=== PATIENT | male | born 1965 | race Caucasian/White ===

== ENCOUNTER → 2021-02-16 10:17 | Outpatient (CLI) | payer OTHER, SELFPAY ==
--- NOTE | 2021-02-16 10:20 | CT_ITS ---
INDICATION: New Lung Mass EXAMINATION: CT CHEST WITHOUT CONTRAST - CT Chest W/O Contrast Injection TECHNIQUE: Helically acquired images were obtained of the chest. A radiation dose optimization technique was used for this scan. IV Contrast dosage and agent: None. COMPARISON: Chest radiograph from 01/15/2021 FINDINGS: Please note that evaluation is limited without IV contrast. Lungs/pleura: There is an 11 x 8.3 x 12.1 cm mass in the left upper lobe (series 2:38) with the following characteristics: * Abuts and invades the left mediastinum. * Involves the adjacent pleura without definite osseous involvement or extension into the chest wall. * Encases and/or invades the left mainstem pulmonary artery and left upper lobe segmental and subsegmental pulmonary vasculature, although the caliber and degree of involvement cannot be assessed on noncontrast study. * Causes complete collapse of the left upper lobe segmental and subsegmental bronchi with associated left upper lobe volume loss and atelectasis. There are a few additional pulmonary nodules in the remaining lungs. For example: * 0.6 cm in the right upper lobe * 0.5 cm in the right lower lobe * 0.5 cm and the left lower lobe. Small left pleural effusion. No pneumothorax. Left lower lobe subsegmental atelectasis. Mediastinum: Invasion of the mediastinum by the mass with multifocal areas of soft tissue thickening/nodules/enlarged lymph nodes. For example index lesions as follow: * 2.5 cm left paratracheal nodule/mass * 2.8 x 1.7 cm left upper mediastinal mass/nodule Soft tissue stranding/nodules contact the pericardium. No pericardial effusion. Heart size is normal. Vasculature: Aorta is normal caliber. The degree of involvement of the left pulmonary artery is difficult to assess without IV contrast. Upper abdomen: Cholelithiasis. Otherwise, no significant findings. Bones/soft tissues: No destructive osseous lesions. No acute findings. CT/Chest without Contrast IMPRESSION: 1. Left lung malignancy with involvement of the mediastinum and adjacent structures as detailed. 2. Encasement with possibility of invasion of the left mainstem pulmonary artery and left upper lobe pulmonary vasculature although degree of involvement cannot be assessed on noncontrast study. 3. Mass effect resulting in collapse of the left upper lobe segmental and subsegmental pulmonary vasculature. 4. A few additional pulmonary nodules measuring up to 0.6 cm. 5. Small left pleural effusion. Electronically Signed: Suleiman Acevedo MD at 12:21 EST Tel , Service support ,
[2021-02-16 13:18] LABS: Absolute Lymphocyte Count 1.81 X10^3/uL (0.83-4.51); Absolute Neutrophil Count 30.2 X10^3/uL (2.0-7.7); Basophil# 0.14 X10^3/uL; Basophil% 0.4 % (0-1); Eosinophils% 6.7 % (0-5); Hemoglobin 10.6 g/dL (13.0-16.5); Lymphocyte # 1.81 X10^3/ul (0.83-4.51); Lymphocyte % 4.9 % (19-41); Mean Corp Hgb Conc 32.1 g/dL (32-36); Mean Corpuscular Hgb 26.6 pg (27.0-32.0); Mean Corpuscular Volume 82.7 fL (80-94); Mean Platelet Vol. 8.5 fl (6.2-12.0); Monocyte% 5.4 % (0-10); NRBC Flagged by Analyzer 0 % (0-5); Neutrophil # 30.17 X10^3/uL (2.7-7.7); Neutrophil % 81.6 % (47-70); POSITIVE COUNT YES; POSITIVE DIFFERENTIAL YES; Platelet Count 557 K/mm3 (150-450); RBC Distribution Width CV 13.4 % (11.6-14.6); RBC Distribution Width SD 40.6 fl (35.1-43.9); Red Blood Count 3.99 M/mm3 (4.6-6.2)
[2021-02-16 13:20] LABS: Eosinophil# 2.49 X10^3/uL
[2021-02-16 13:24] LABS: Differential Indicated SCAN CRITERIA MET
[2021-02-16 13:37] LABS: International Normalized Ratio 1.2
[2021-02-16 13:38] LABS: Partial Thromboplast Time 34.8 Seconds (24.1-36.2)
[2021-02-16 13:43] LABS: Hypochromasia RARE; Platelet Estimate MOD INC (ADEQ)
[2021-02-18 15:21] LABS: Pathologist Review Reviewed
== END ==
PROVIDERS: PCP Family Medicine; Referring Provider Internal Medicine Critical Care Medicine; Visit Provider Internal Medicine Critical Care Medicine
DX: R91.8 Other nonspecific abnormal finding of lung field (principal)
CPT/HCPCS: 36415; 71250; 85025; 85610; 85730

== ENCOUNTER → 2021-02-18 06:55 | Outpatient (CLI) | payer OTHER, SELFPAY ==
--- NOTE | 2021-02-18 09:02 | PFT ---
INTRODUCTION: The patient is a 55-year-old male that presents for pulmonary function studies secondary to a diagnosis of lung mass. Respiratory therapy reported good patient effort. Bronchodilators were used during testing. INTERPRETATION: Forced expiration spirometry demonstrates the presence of a moderate large airways obstructive ventilatory defect. There was no significant response to aerosolized bronchodilators. Spirograms are of good quality and plateau normally. Body plethysmography was performed and reveals lung volumes to be within normal limits. Diffusing capacity by single breath CO was mildly reduced. IMPRESSION: Irreversible moderate large airways obstructive ventilatory defect with preserved lung volumes and mild reduction in diffusing capacity.
== END ==
PROVIDERS: PCP Family Medicine; Referring Provider Internal Medicine Critical Care Medicine; Visit Provider Internal Medicine Critical Care Medicine
DX: R91.8 Other nonspecific abnormal finding of lung field (principal)
CPT/HCPCS: 94060; 94726; 94729

== ENCOUNTER 2021-02-21 13:01 | Day surgery (SDC) | payer OTHER, SELFPAY ==
--- NOTE | 2021-02-21 | LUNG_PTH ---
PATIENT: MARIKA SCALES LOC: EN U#:[id number] AGE/SX: 55/M ROOM: RE02/21/[address]: Dr. Alonso Felder MD : 1965 BED: DIS: 02/21/2021 SPEC #: [id number] RECD: 02/21/21 14:58 STATUS: MCKAYLA SCHMIDT #: [id number] MORIS: 02/21/21 00:[address]: Alonso Felder DEPT: SURGICAL PATHOLOGY RECD BY: Jaci Henson ENTERED: 02/22/21 09:58 SP TYPE: LUNG BX OTHR DR: Dr. Saulo Cooney MD Tissues: Lung, NOS Procedures: Surgery Specimen Level IV HEADER OPERATION: Bronchoscopy (MAC) PRE-OP DIAGNOSIS: Mass of left lung; post-obstructive pneumonia TISSUE SUBMITTED: Endobronchial biopsy lingula MICROSCOPIC DIAGNOSIS Lingula, endobronchial biopsy: Non-small cell carcinoma, favor adenocarcinoma, consistent with lung primary. See comment. SJ:dat 02/23/2021 COMMENT Immunohistochemistry ([id number]) supports the above diagnosis. Molecular studies on the tumor can be performed if clinically indicated. Please notify the laboratory if they are needed. This case is discussed with Dr. Howard on 02/23/2021 MICROSCOPIC DESCRIPTION Slides are reviewed. GROSS DESCRIPTION Received in fixative is one container labeled with the patient's name and designated endobronchial biopsy lingula. The specimen consists of multiple irregular fragments of light burton soft tissue that in aggregate measure 2.5 x 0.5 x 0.1 cm. The specimen is totally submitted in one cassette. / MERISSA:dat 02/22/2021 TC:0 CPT: 36611 ADDENDUM ADDENDUM ADDENDUM ADDENDUM ADDENDUM ADDENDUM 03/23/2021 09:41 ADDENDUM 03/23/2021 09:41 ADDENDUM 03/23/2021 09:41 ADDENDUM 03/23/2021 09:41 ADDENDUM 03/29/2021 10:06 ADDENDUM 03/23/2021 09:41 PD-L1 (KEYTRUDA) IMMUNOHISTOCHEMICAL ANALYSIS FROM [facility] RESULTS: Tumor proportion score: 15-20% / Positive Please see complete report in e-chart or E[facility] GENE FUSION PAN[facility] FROM [facility] INTERPRETATION: POSITIVE: CCDC6-RET gene fusion is DETECTED. No pathogenic gene fusions detected involving ALK, MIKAEL, BRAF, CCND1, EGFR, FGFR1, FGFR2, FGFR3, MET, NRG1, NTRK1, NTRK2, NTRK3, PPARG, RAF1, ROS1 or THADA. The presence of RET rearrangement is associated with responsiveness to oral RET TKIs (NCCN Guidelines, Small Cell Lung Cancer, Version 2.2021; NCCN Guidelines, Non-Small Cell Lung Cancer, Version 2.202) RESULTS: 3'GENE FUSION TRANSCRIPT 5'GENE FUSION TRANSCRIPT CCDC6;exon:1;[id number] RET;exon:12;[id number] Please see complete report in e-chart or EMR
--- NOTE | 2021-02-21 | FLU_PTH ---
PATIENT: MARIKA SCALES LOC: EN U#:[id number] AGE/SX: 55/M ROOM: RE02/21/[address]: Dr. Alonso Felder MD : 1965 BED: DIS: 02/21/2021 SPEC #: [id number] RECD: 02/21/21 14:58 STATUS: MCKAYLA SCHMIDT #: [id number] MORIS: 02/21/21 00:[address]: Alonso Felder DEPT: CYTOLOGY RECD BY: Jaci Henson ENTERED: 02/22/21 10:00 SP TYPE: Fluid OTHR DR: Dr. Saulo Cooney MD Tissues: A - Bronchus, NOS B - Bronchus, NOS Procedures: Special Stain Group II Surgery Specimen Level IV Cytospin Fluid HEADER OPERATION: Bronchoscopy (MAC) PRE-OP DIAGNOSIS: Mass of left lung; post-obstructive pneumonia TISSUE SUBMITTED: A ? Washings lingula, B ? Washings lingula DIAGNOSIS CYTOLOGY A. Lingula, washings (cytospin and cell block): Negative for malignant cells. Bloody specimen. B. Lingula, washings (cytospin and cell block): Negative for malignant cells. Bloody specimen. MERISSA:dat 02/23/2021 COMMENT Please make reference to corresponding surgical specimen ([id number]), lingula, endobronchial biopsy with diagnosis of ?non-small cell carcinoma, favor adenocarcinoma, consistent with lung primary.? CYTOLOGY STUDY Slides are reviewed. CYTOLOGY GROSS A - Received is 40 ml of red cloudy fluid labeled with the patient's name and and designated per the requisition as lingula wash. Submitted for cytology preparation including cell block. B - Received is 30 ml of red cloudy fluid labeled with the patient's name and and designated per the requisition as lingula wash. Submitted for cytology preparation including cell block. / dat 02/22/2021 TC:5 CPT: 82756 x2, 09688 x2 ADDENDUM ADDENDUM ADDENDUM ADDENDUM ADDENDUM ADDENDUM ADDENDUM 02/28/2021 15:05 ADDENDUM 02/28/2021 15:05 ADDENDUM 02/28/2021 15:05 ADDENDUM 02/28/2021 15:05 ADDENDUM 02/28/2021 15:05 B. Rare atypical epithelial cells noted. SJ:dat 02/28/2021 Case has been reviewed in consultation with Dr. Fish who concurs with the above diagnosis. IDC:AM
--- NOTE | 2021-02-21 | IMM_PTH ---
PATIENT: MARIKA SCALES LOC: EN U#:[id number] AGE/SX: 55/M ROOM: RE02/21/[address]: Dr. Alonso Felder MD : 1965 BED: DIS: 02/21/2021 SPEC #: [id number] RECD: 02/23/21 13:38 STATUS: MCKAYLA REQ #: [id number] MORIS: 02/21/21 00:[address]: Alonso Felder DEPT: IMMUNOHISTOCHEMISTRY RECD BY: Beena Ashton ENTERED: 02/23/21 13:40 SP TYPE: IMMUNO OTHR DR: Dr. Saulo Cooney MD Tissues: Lingula of left lung Procedures: RCC (add) NAPSIN A (add) CK20 (add) CK5-6 (add) CK7 (add) CK8 (add) HEP PAR (add) TTF1 (add) Pankeratin (initial) P40 (add) PSAP (add) PHYSICIAN & [address] [address] SPECIMEN INFORMATION: Tissue Source: Lingula, endobronchial biopsy Clinical Info: Mass of left lung, post-obstructive pneumonia Specimen Number: [id number] CPT code: 20662, 63112 x10 METHODOLOGY: Deparaffinized sections of prefer/formalin-fixed tissue or PAP/DQ stained slides are incubated with monoclonal/polyclonal antibodies/oligonucleotide probes. Localization is made via biotin free immunoperoxidase method. Appropriate controls are performed and reacted as expected. Results on target cell population are indicated in the following table: RESULTS: ANTIBODY / CLONE RESULT AE1-3 (AE1/AE3/PCK26) positive CK7 (OV-TL12/30) positive CK8 (14thmsV68) positive CK20 (KS20.8) negative TTF-1 (8G7G3/1) positive Napsin A (Rabbit Polyclonal) positive HepPar (OCh1E5) negative RCC (PN-15) negative PSAP (PASE/4LJ) negative CK5-6 (D5 & 1684) negative P40 (BC28) negative These tests were developed and their performance characteristics determined by [facility]. They may not have been cleared or approved by the U.S. Food and Drug Administration. The FDA has determined that such clearance or approval is not necessary. The above immunohistochemical/dualISH markers are ordered and reviewed by the Pathologist. INTERPRETATION: Lingula, endobronchial biopsy: Non-small cell carcinoma, favor adenocarcinoma, consistent with lung primary. :dat 02/24/2021
[2021-02-21 13:28] VITALS: BP 146/71; PULSE 123; RESP 16; TEMP 37.8; O2SAT 92; BMI 25.7
--- NOTE | 2021-02-21 13:44 | HP.PCM_ITS ---
History and Physical Date of Admission: 02/21/21 Patient seen and examined independently prior to the procedure. There is been no significant change compared to visit listed below. All questions were answered. Patient does have a slight fever today, but this would not preclude proceeding with the procedure. Anticipate endobronchial biopsies with micro evaluation for possible postobstructive pneumonia. Patient understands that hemoptysis and fever would be expected over the next 24 to 48 hours. Reasons for coming back to the hospital were also reviewed. Anticipate discharge home after the procedure. Assessment and Plan Assessment and Plan (1) Mass of left lung: Status: Acute (2) Postobstructive pneumonia: Status: Acute Orders: Orders: Chest without Contrast Today R91.8 Partial Thromboplast Time Today R91.8 Prothrombin Time w/INR Today R91.8 CBC W/Diff, Automated Today R91.8 Pulmonary Function Test (Comp) Today R91.8 Bronchoscopy 02/21/21 R91.8 Plan - Dr. Alonso Felder MD: Patient is currently on antibiotics and tolerating well. Differential diagnosis would include aspiration, infectious or malignant etiology. 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 Work-up is complicated by lack of primary care. After review of the risks, benefits and alternatives of various approaches including EBUS, CT-guided biopsy and regular bronchoscopy, patient has elected to have a routine bronchoscopy. Patient is not willing to wait any longer then he has to for an EBUS procedure. Patient understands that this will limit the ability to stage, but is interested in finding answers as soon as possible. Will obtain a complete pulmonary function test for quantification and qualification of lung function. Cannot exclude metastatic disease given lack of colonoscopy and prostate exam. Patient's bronchoscopy has been tentatively scheduled for March 23, 2021 at 2 PM. Obtain labs and complete PFT. Bronchoscopy next week. Continue antibiotics. Plan Details Follow Up: Following bronchoscopy HPI Lung Mass Chief Complaint: Lung mass Details: Patient is a 55-year-old male, currently without a PCP, who presents for evaluation secondary to a lung mass. Patient states he has not felt well in the past 6 to 8 weeks. Patient states that he went to the urgent care 3 weeks ago and was placed on antibiotics for a sinus infection and possible pneumonia. Patient believes this was amoxicillin. Patient did improve while on antibiotics, but then continued to worsen. Patient went to the urgent care yesterday with similar type of complaints. Patient had a chest x-ray showing a significant lung mass. This led to a pulmonary consult. An urgent CT scan was done prior to this visit. Patient has been subsequently placed on Augmentin. On further questioning, patient reports he has had a cough for at least 6 to 8 weeks. The last 2 to 3 days patient has noted some mild hemoptysis and describes his sputum as brown with blood streaks. Patient feels more chest tightness with lying flat. Patient has noted decreased exercise tolerance compared to previous. Patient is not reporting any obvious chest pain or trauma at this time. 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 Patient believes his last chest imaging was in 2004. Patient is not aware of any aspiration event Patient reports only 2 years of smoking history. Patient does state that he does not follow routinely with a PCP. Patient is supposedly to be evaluated by Dr. Cooney next week as a new patient. Patient has not had a colonoscopy or a prostate examination. Patient has had some mild weight loss. Patient is not reporting any significant lower extremity edema. Imaging personally reviewed with the patient Chest x-ray (02/15/2021): 9.5 x 9.9 cm left upper lobe mass with elevation of left hemidiaphragm CT chest (02/16/2021): Formal interpretation is currently pending. This is suggestive of an endobronchial mass in the left upper lobe with possible postobstructive pneumonia versus atelectasis. There is some left hilar adenopathy appreciated. Intake Vital Signs 02/16/21 12:14 Height 6 ft Weight: 89.358 kg BMI 26.7 BP 122/72 H Blood Pressure Location Lt brachial Position Sitting Respiration 18 Pulse 110 H Pulse Source Monitor Temp 37.3 C H Temperature Source Tympanic Pulse Oximetry (%) 92 Oxygen Delivery Method room air Intake Visit Reasons: Lung Mass Allergies No Known Allergies Allergy (Unverified 02/16/21 13:35) Medications benzonatate 100 mg capsule 100 mg PO Q8H PRN #30 cap 02/15/21 [Rx Confirmed 02/16/21] PFSH Medical History (Updated 02/16/21 @ 16:[address] Alonso Felder MD) Alcohol use Chest pain Former smoker Injury of head and neck Lab test negative for COVID-19 virus Non-smoker Shortness of breath on exertion Family History (Updated 02/16/21 @ 12:16 by Kandi Joya) Mother Diabetes Social History (Updated 02/16/21 @ 12:16 by Kandi Joya) Smoking Status: Former smoker quit date: 03/26/79 pack-years: 2 Review of Systems Resp Respiratory: Yes as per HPI Exam Const Constitutional: Positive conversant, cooperative, in no acute respiratory distress, healthy appearing, well developed, well nourished and good hygiene Head Head: Yes normocephalic, Yes atraumatic and No cyanosis of lips/distal nose Eyes Eye: Positive clear conjunctiva; Negative nystagmus, scleral abnormality or cataract present Ears Ear: Positive hearing normal and external ears normal; Negative hard of hearing Neck Neck: Positive normal visual inspection, full ROM and trachea midline; Negative lymphadenopathy or JVD Chest Wall Chest: Positive normal inspection of the chest and symmetric chest movement; Negative crepitus or tenderness Resp lung sounds: Positive clear to auscultation, good air exchange, diminished lung sounds (Anteriorly) diminished: Positive upper and left and normal expiratory time; Negative wheezes, wheeze present on forced exhalation, rhonchi, rales, dullness or use of accessory muscles Cardio Cardiac: Positive regular rate, regular rhythm, S1 normal and S2 normal; Negative murmur, rub or gallop GI GI: Positive normal to inspection and normal bowel sounds; Negative distended, ascites or epigastric tenderness Genitourinary: Positive deferred Musc Musculoskeletal: Positive steady gait; Negative using an assistive device for ambulation, kyphosis or scoliosis Skin Pulmonary Skin Exam: Positive intact; Negative lesion, rash, ulcers or erythema Pulses Pulse: Yes radial pulses present Extremities Extremities: Yes capillary refill normal, No clubbing, No cyanosis and No edema Neuro Neurologic: Yes no focal neuro deficits, Yes conversant, Yes cooperative, Yes normal cognition, Yes normal coordination, Yes normal concentration and Yes understands questions Lymph Lymphatic: No lymphadenopathy Psych Appearance: Positive grossly normal Mental Status: Positive mental status grossly normal Mood: Positive congruent mood Affect: Positive normal affect Assessment & Plan Assessment/Plan (1) Mass of left lung: (2) Postobstructive pneumonia: PLAN: Proceed with bronchoscopy with endobronchial biopsies and microbiologic work-up
[2021-02-21] MEDS: Lactated Ringers 1,000 ML 30 ML IV (14:04)
[2021-02-21 14:27] LABS: Hematocrit 34.9 % (40-54); Hemoglobin 10.9 g/dL (13.0-16.5); Mean Corp Hgb Conc 31.2 g/dL (32-36); Mean Corpuscular Hgb 26.1 pg (27.0-32.0); Mean Corpuscular Volume 83.7 fL (80-94); POSITIVE COUNT YES; Platelet Count 615 K/mm3 (150-450); RBC Distribution Width CV 13.7 % (11.6-14.6); RBC Distribution Width SD 41.6 fl (35.1-43.9); Red Blood Count 4.17 M/mm3 (4.6-6.2)
[2021-02-21 14:30] LABS: Scan Indicated on CBC? Y/N YES- FLAGS NOTED; White Blood Count 34.8 K/mm3 (4.4-11.0)
[2021-02-21 14:52] VITALS: BP 141/80; BP 146/71; PULSE 135; RESP 20; TEMP 37.3; O2SAT 93
[2021-02-21 14:57] VITALS: BP 108/72; BP 146/71; PULSE 134; RESP 16; O2SAT 94
--- NOTE | 2021-02-21 14:57 | OP.BRONCH_ITS ---
Patient Name: Jose Parisi Procedure Date: 02/21/2021 1:43 PM Date of : 1965 Age: 55 Procedure: Bronchoscopy Indications: Left upper lobe mass, Unresolving left upper lobe infiltrate Providers: Alonso Felder MD Medicines: Lidocaine applied to nares and subglottic space, Lidocaine 1% applied to cords 3 mL, Lidocaine 2% Nebulizer 2.5 mL, Lidocaine 1% applied to the tracheobronchial tree 8 mL, See the Anesthesia note for documentation of the administered medications Complications: No immediate complications Procedure: Pre-Anesthesia Assessment: - A History and Physical has been performed. The patient's medications, allergies and sensitivities have been reviewed. - The risks and benefits of the procedure and the sedation options and risks were discussed with the patient. All questions were answered and informed consent was obtained. After I obtained informed consent, the scope was passed under direct vision. Throughout the procedure, the patient's blood pressure, pulse, and oxygen saturations were monitored continuously. The bronchoscope was introduced through the right nostril and advanced to the tracheobronchial tree. The patient tolerated the procedure well. The patient tolerated the procedure fairly well. The procedure was accomplished with moderate difficulty due to excessive bleeding and the patient's respiratory instability (hypoxia). Successful completion of the procedure was aided by controlling the bleeding and increasing supplemental oxygen. Findings: The nasopharynx/oropharynx appears normal. The larynx appears normal. The vocal cords appear normal. The subglottic space is normal. The trachea is of normal caliber. The robetr is sharp. The tracheobronchial tree of the right lung was examined to at least the first subsegmental level. Posterior collapse of the airway noted throughout. Bronchial mucosa and anatomy in the right lung are normal; there are no endobronchial lesions, and no secretions. Upon administration of lidocaine, patient developed hemoptysis in the left. Significant obstruction of vision was noted for the remainder of the bronchoscopy. This was even deposited on the right-hand side prior to pictures. Left Lung Abnormalities: An area of friable mucosa was found in the superior lingula segment of the left upper lobe (B4). A nearly obstructing (greater than 90% obstructed) airway abnormality was found in the superior lingular segment of the left upper lobe (B4). This area was rinsed with cold saline and 2 cc of epinephrine to limit bleeding. Copious, mucopurulent, yellow and thick exudate was found in the left upper lobe. Washings were obtained in the superior lingula segment of the left upper lobe and sent for cell count, bacterial culture, viral smears & culture, and fungal & AFB analysis and cytology. The return was bloody and mucopurulent. Multiple specimens were obtained, and each sent for analysis. Endobronchial biopsies were performed in the left upper lobe using forceps and sent for histopathology examination. 9 were obtained. Some concern that these may be nondiagnostic given bronchial tissue. Impression: - Left upper lobe mass - Unresolving left upper lobe infiltrate - The airway examination of the right lung was normal. - Friable mucosa was found in the superior lingula segment of the left upper lobe. - Nearly obstructing (greater than 90% obstructed) airway abnormality in the superior lingular segment of the left upper lobe (B4). - Exudate was found in the left upper lobe. - Washings were obtained. - An endobronchial biopsy was performed. Recommendation: - The patient will be observed post-procedure, until all discharge criteria are met. - Await biopsy and washing results. - Patient has a contact number available for emergencies. The signs and symptoms of potential delayed complications were discussed with the patient. Return to normal activities tomorrow. Written discharge instructions were provided to the patient. - Medications: antibiotics. - Suspect biopsy may be non-diagnostic given bleeding. May need EBUS in future. Procedure Code(s): --- Professional --- 51333, Bronchoscopy, rigid or flexible, including fluoroscopic guidance, when performed; with bronchial or endobronchial biopsy(s), single or multiple sites Diagnosis Code(s): --- Professional --- R91.8, Other nonspecific abnormal finding of lung field J98.4, Other disorders of lung R09.89, Other specified symptoms and signs involving the circulatory and respiratory systems CPT copyright 2017 [employer]. All rights reserved. The codes documented in this report are preliminary and upon playground aide review may be revised to meet current compliance requirements. MD Alonso Villalobos MD 02/21/2021 2:56:55 PM This report has been signed electronically. Number of Addenda: 0 Note Initiated On: 02/21/2021 1:43 PM
[2021-02-21 15:03] LABS: ALB/GLOB Ratio 0.5 RATIO (0.9-2.4); AST(SGOT) 20 U/L (15-37); Alanine Aminotransfer ALT/SGPT 41 U/L (16-61); Albumin, Serum 2.6 g/dL (3.2-5.0); Alkaline Phosphatase 141 U/L (45-117); Anion Gap 10 (5-15); BUN 15 mg/dL (7-18); BUN/Creat Ratio 16.7 RATIO (10-20); Chloride 100 mmol/L (98-107); Cholesterol 138 mg/dL (200); EST Glomerular Filtration Rate 94 mL/min (>60); Est Glom Filt Rate - Afr Amer 113 mL/min (>60); Estimated Creatinine Clearance 102.99 ml/min; Globulin 5.5 g/dL (2.2-4.2); Glucose 90 mg/dL (74-106); High Density Lipoprotein 24 mg/dL; Potassium 4.1 mmol/L (3.5-5.1); Protein, Total 8.1 g/dL (6.4-8.2); Sodium Level 134 mmol/L (136-145); Thyroid Stim Hormone (TSH) 0.83 uIU/mL (0.358-3.74); Triglycerides 88 mg/dL; Very Low Density Lipoprotein 18 mg/dL (5-40)
[2021-02-21 15:05] LABS: Cytology, Body Fluid / CSF SEE PATHOLOGY REPORT
[2021-02-21 15:06] VITALS: BP 115/63; BP 146/71; PULSE 125; RESP 16; O2SAT 94
[2021-02-21 15:09] VITALS: BP 112/72; BP 146/71; PULSE 130; RESP 18; TEMP 37.2; O2SAT 94
[2021-02-21 16:22] LABS: Lymphocytes 10 %; Macrophages 1 %; Mesothelial Cells 1 %; Monocytes 6 %; Neutrophil (Segs) 82 %
[2021-02-21 16:30] VITALS: BP 146/71
[2021-02-21 16:43] LABS: Color/Body Fluid RED; Source- Body Fluid BRONCHIAL LAVAGE
[2021-02-21 16:44] LABS: Appearance/Body Fluid CLOUDY; Red Cell Count/Body Fluid 29400 /mm3; White Blood Count/Body Fluid 210 /mm3
[2021-02-21 16:45] LABS: Body Fluid QC Type(s) BF1Q,BF2Q
[2021-02-22 13:07] LABS: Pathologist Comment/Body Fluid Reviewed
[2021-02-22 13:14] LABS: Pathologist Review Reviewed
== END 2021-02-21 16:32 | disposition home or self-care (01) ==
LOC: EN 13:04 → AC 13:06
PROVIDERS: PCP Family Medicine; Referring Provider Internal Medicine Critical Care Medicine; Visit Provider Internal Medicine Critical Care Medicine
PROC: 0BJ08ZZ Inspection of Tracheobronchial Tree, Via Natural or Artificial Opening Endoscopic (ICD-10-PCS; CPT 31622; principal; 2021-02-21 13:45)
DX: R91.8 Other nonspecific abnormal finding of lung field (principal); J98.4 Other disorders of lung; Z87.891 Personal history of nicotine dependence
CPT/HCPCS: 31625; 80053; 80061; 84403; 84443; 85027; 87070; 87077; 87186; 87205; 87426; 88108; 88305; 88313; 88341; 88342; 89050; J7120; J3490

== ENCOUNTER → 2021-02-24 12:39 | Outpatient (CLI) | payer OTHER, SELFPAY ==
[2021-02-24 12:58] LABS: Absolute Lymphocyte Count 1.27 X10^3/uL (0.83-4.51); Absolute Neutrophil Count 26.4 X10^3/uL (2.0-7.7); Basophil# 0.19 X10^3/uL; Basophil% 0.6 % (0-1); Eosinophils% 9.3 % (0-5); Hematocrit 31.2 % (40-54); Hemoglobin 9.9 g/dL (13.0-16.5); Lymphocyte # 1.27 X10^3/ul (0.83-4.51); Lymphocyte % 3.8 % (19-41); Mean Corp Hgb Conc 31.7 g/dL (32-36); Mean Corpuscular Hgb 25.9 pg (27.0-32.0); Mean Corpuscular Volume 81.7 fL (80-94); Mean Platelet Vol. 8.5 fl (6.2-12.0); Monocyte# 1.94 X10^3/uL; Monocyte% 5.8 % (0-10); NRBC Flagged by Analyzer 0 % (0-5); Neutrophil # 26.35 X10^3/uL (2.7-7.7); POSITIVE COUNT YES; POSITIVE DIFFERENTIAL YES; Platelet Count 551 K/mm3 (150-450); RBC Distribution Width CV 13.7 % (11.6-14.6); RBC Distribution Width SD 40.5 fl (35.1-43.9); Red Blood Count 3.82 M/mm3 (4.6-6.2); White Blood Count 33.4 K/mm3 (4.4-11.0)
[2021-02-24 13:08] LABS: Color, Urine Yellow (Yellow); Glucose, Dipstick Normal (Normal); Ketone-Dipstick 5 mg/dl (Negative); Leukocyte Esterase-Dipstick 25 /ul (Negative); Nitrite-Dipstick Negative (Negative); Occult Blood-Urine Negative /ul (Negative); Protein-Dipstick 30 mg/dl (Negative); Urine Bilirubin Dipstick Negative (Negative); Urine Clarity Sl. Cloudy (Clear); Urine Urobilinogen 4 mg/dl (Normal)
[2021-02-24 13:09] LABS: Differential Indicated SCAN CRITERIA MET; Eosinophil# 3.12 X10^3/uL
[2021-02-24 13:19] LABS: BNP,B-Type NATRIURETIC PEPTIDE 46.2 pg/mL (0-100)
[2021-02-24 13:23] LABS: Vitamin D,25 Hydroxy 62.2 ng/mL
[2021-02-27 01:06] LABS: Red Blood Cell Count Test/G6PD 3.81 x10E6/uL (4.14-5.80)
[2021-02-28 09:07] LABS: Pathologist Review Reviewed
[2021-02-28 21:06] LABS: G6PD Quant Test 385 (127-427)
== END ==
PROVIDERS: PCP Family Medicine; Referring Provider Nurse Practitioner Family; Visit Provider Nurse Practitioner Family
DX: R53.82 Chronic fatigue, unspecified (principal); M62.81 Muscle weakness (generalized)
CPT/HCPCS: 36415; 81002; 82306; 82955; 83880; 85025

== ENCOUNTER → 2021-02-28 13:18 | Outpatient (CLI) | payer OTHER, SELFPAY ==
--- NOTE | 2021-02-28 13:19 | MRI_ITS ---
EXAM: MR HEAD WITHOUT AND WITH INTRAVENOUS CONTRAST CLINICAL INDICATION: new diagnosis curtis lung cancer TECHNIQUE: Multiplanar and multisequence MR images of the brain were obtained without and with intravenous contrast. This report was created using [employer] report [email or web address] technology. CONTRAST: IV dotarem 18ml COMPARISON: None. FINDINGS: BRAIN AND EXTRA-AXIAL SPACES: Unremarkable. No intra- or extra-axial hemorrhage. No evidence of acute infarct. No intracranial mass or mass effect. There is preservation of the barrios/white matter interface. Posterior fossa structures are unremarkable. Ventricles are appropriate for age. No hydrocephalus. Basal cisterns are patent. SELLA: Unremarkable. Normal sella turcica, pituitary gland, infundibular stalk, optic chiasm and hypothalamus. AUDITORY SYSTEM: Unremarkable. The internal auditory canals are patent. BONES/JOINTS: Unremarkable. No discrete lytic or blastic abnormalities. SINUSES: There is sinus disease. MASTOID AIR CELLS: Unremarkable as visualized. Clear. ORBITS: Unremarkable as visualized. Both globes, extraocular muscles, optic nerves and retrobulbar fat appear unremarkable. VASCULATURE: Unremarkable as visualized. Normal flow voids in the major intracranial circulation. MRI/Brain W/WO Contrast IMPRESSION: No acute findings in the head/brain. Electronically Signed: Ayan Acuna MD at 15:49 EST , Service support ,
== END ==
PROVIDERS: PCP Family Medicine; Referring Provider Internal Medicine Critical Care Medicine; Visit Provider Internal Medicine Critical Care Medicine
DX: C34.92 Malignant neoplasm of unspecified part of left bronchus or lung (principal)
CPT/HCPCS: 70553; A9575

== ENCOUNTER → 2021-03-01 17:12 | Outpatient (CLI) | payer OTHER, SELFPAY ==
--- NOTE | 2021-03-01 17:00 | PET_ITS ---
EXAMINATION: FDG PET-CT INDICATIONS: A 55-year-old male with a history of carcinoma of the lung presenting for restaging examination. COMPARISON EXAMINATION: CT of the chest report dated 02/16/21. INDEX LESION SIZE SUV INTERPRETATION Left upper lung-left upper lobe heterogeneous 6.8 cm x 9.4 cm (frame 187) 24.0 Fulfills quantitative criteria for viable neoplasm. Carinal level mediastinum and left thoracic perihilum 39.1 mm largest (frame 178) 7.2 max Fulfills quantitative criteria for viable neoplasm. Left adrenal gland 12.5 Fulfills quantitative criteria for viable neoplasm. Left upper abdomen soft tissue nodule 18.9 mm (frame 145) 10.3 Fulfills quantitative criteria for viable neoplasm. Mid abdomen pancreatic body 33.2 mm (frame 113) 3.3 May be further investigated with CT of the abdomen and pelvis with intravenous contrast and/or magnetic resonance imaging. Appendicular, axial skeletal structures periosseous soft tissues 17.3 mm largest (frame 79) 22.5 max Fulfills quantitative criteria for viable neoplasm. NON-INDEX LESION SIZE SUV INTERPRETATION Right upper abdomen soft tissue nodule 1.9 Quantitative criteria for viable neoplasm are not fulfilled. Homogeneous increase splenic parenchyma Most consistent with extramedullary hematopoiesis. TECHNIQUE: Following the intravenous administration of 14.98 mCi of F-18 deoxyglucose via the right antecubital fossa, multiplanar image acquisitions of the head, neck, chest, abdomen and pelvis to level of mid-thigh, lower extremities obtained at one hour post radiopharmaceutical administration contemporaneously interpreted with the current CT of the head, neck, chest, abdomen and pelvis to level of mid-thigh, lower extremities dated 03/01/[address] of the chest report dated 02/16/21 reveal: SERUM GLUCOSE LEVEL: 112 mg/dl. HEIGHT: 72 inches. WEIGHT: 180 lbs. FINDINGS: 1. A large heterogeneous focus of increased glucose metabolism is noted in the left upper lung-left upper lobe. Calculated standard uptake value is noted to be 24.0. The maximum axial diameter of the corresponding mass density on review of CT of the chest dated 03/01/21 is 6.8 cm (transverse) x 9.4 cm (AP). 2. Enhanced tracer uptake is observed in the carinal level mediastinum and left thoracic perihilum. The calculated maximum standard uptake value is noted to be 7.2. The maximum axial diameter of the largest metabolic, morphologic abnormality is 39.1 mm (transverse). 3. Facilitated 18 F GLUCOSE metabolism is defined in the left upper abdomen associated with the prominent sized adrenal gland with a calculated maximum standard uptake value of 12.5. 4. A soft tissue nodule is demonstrated in the left upper abdomen independent of the adrenal gland generating a calculated maximum standard uptake value of 10.3. The maximum axial diameter of the thoracic diameter of the soft tissue nodule is 18.9 mm. 5. There is an overall increase in tracer uptake noted in the normal sized spleen. 6. Increased labeled GLUCOSE concentration is identified in the mid abdomen associated with the pancreatic body with a maximum standard uptake value of 3.3. The maximum axial diameter of the corresponding metabolic abnormality is 33.2 mm (transverse). 7. Enhanced tracer concentration is defined in the right iliac wing, right proximal femoral metaphysis, the left proximal humeral diaphysis, the right anterolateral third rib, the right proximal humerus, and left hemipelvis involving the periosseous soft tissues. The calculated maximum standard uptake value is noted to be 22.5. The corresponding soft tissue density demonstrates a maximum axial diameter of 17.3 mm. 8. Normal physiologic distribution of the radiopharmaceutical is apparent in the hepatic (1.9) and splenic parenchyma, both renal units, bladder and visualized intestinal tract. The visualized portion of the cerebral cortex demonstrate symmetric and preserved glucose metabolism. Diffuse intestinal tract activity is noted throughout all four quadrants of the abdominal-pelvic retroperitoneum and mesentery consistent with normal physiologic distribution of the radiopharmaceutical. Homogeneous enhanced glucose metabolism is defined throughout the visualized appendicular- axial skeletal structures. Pertinent CT findings are as follows. CHEST: A left hemithorax pleural effusion is nonglucose avid. There are no parenchymal densities-nodules defined in the right hemithorax pulmonary parenchyma and remaining visualized left lung. There is atherosclerotic calcification defined in the thoracic aorta without evidence of dilatation-aneurysm formation. Coronary arterial calcification is observed. Bilateral axillary soft tissue densities with fatty hilus are ametabolic. ABDOMEN AND PELVIS: Atherosclerotic calcification is defined in the abdominal aorta without evidence of dilatation, aneurysm formation. Right-left inguinal soft tissue densities demonstrates no evidence of facilitated FDG uptake. Subtle soft tissue density is noted in the right posterior perirenal space with a calculated standard uptake value of 1.9. Quantitative criteria for viable neoplasm are not fulfilled. Right and left inguinal soft tissue densities are ametabolic. SKELETAL: Degenerative changes defined in the cervical, thoracic and lumbar spine demonstrate no evidence of glucose hypermetabolism. PET/PET/CT Tumor Base -Thigh Init IMPRESSION: 1. ABNORMAL EXAMINATION INDICATIVE OF MALIGNANT-METASTATIC VIABLE NEOPLASM. 2. Increased glucose concentration noted in the left upper lung-left upper lobe fulfills quantitative criteria for viable neoplasm. (Gamble et al, Annals of Internal Medicine, 138:724, 2003). 3. Metastatic involvement appears evident in the carinal level mediastinum and left thoracic perihilum. (Hortencia et al, Journal of Clinical Oncology 16:2142, 1998) 4. Focal increased glucose concentration associated with the left upper abdominal soft tissue nodule as well as left adrenal gland fulfills quantitative criteria for viable neoplasm. 5. Enhanced tracer uptake demonstrated in the region of the pancreatic body may be further investigated with diagnostic CT of the abdomen and pelvis and/or magnetic resonance imaging secondary to quantitative degree of uptake. 6. The overall increase in radiopharmaceutical activity manifest in the parenchyma of the normal sized spleen in conjunction with homogeneous uptake noted throughout the appendicular and axial skeletal structures is most consistent with extramedullary hematopoiesis. 7. Viable skeletal metastatic disease is defined in the appendicular, axial skeletal structures as well as a single focus within the periosseous soft tissues at the level of the left hemipelvis. Electronic Signature Sriram Espinoza D.O. Accurate Quantification of SUVs for this report are calculated using the exclusive [employer] Technology. (U.S. Patent No. 10, [id number] 983). Standardization and correction of the FDG SUV metric via [employer]QUAN technology allow for vendor non-specific objective quantitative examination comparison and optimization of the sensitivity and specificity of the FDG PET-CT examination. Electronically Signed: Sriram Espinoza DO at 7:46 EST Tel , Service support ,
== END ==
PROVIDERS: PCP Family Medicine; Referring Provider Internal Medicine Critical Care Medicine; Visit Provider Internal Medicine Critical Care Medicine
DX: C34.12 Malignant neoplasm of upper lobe, left bronchus or lung (principal)
CPT/HCPCS: 78815; A9552

== ENCOUNTER → 2021-03-02 | Outpatient (CLI) | payer OTHER, SELFPAY ==
--- NOTE | 2021-03-02 | IMM_PTH ---
PATIENT: MARIKA SCALES LOC: [facility] U#:[id number] AGE/SX: 55/M ROOM: RE03/02/[address]: Dr. Gio Robison MD : 1965 BED: DIS: 03/02/2021 SPEC #: [id number] RECD: 03/04/21 14:42 STATUS: MCKAYLA REQ #: [id number] MORIS: 03/02/21 00:[address]: Gio Robison DEPT: IMMUNOHISTOCHEMISTRY RECD BY: Beena Ashton ENTERED: 03/04/21 14:45 SP TYPE: IMMUNO OTHR DR: Dr. Saulo Cooney MD Tissues: Flank, NOS Procedures: NAPSIN A (add) CK14 (add) CK20 (add) CK5-6 (add) CK7 (add) CK8 (add) BERUMEN-2 (add) KI-67 (add) P53 (add) TTF1 (add) Pankeratin (initial) GATA3 (add) P40 (add) CDX2 (add) PSAP (add) S-100 (add) PHYSICIAN & [place] [id number] SPECIMEN INFORMATION: Tissue Source: Left flank Clinical Info: Left flank mass Specimen Number: [id number] CPT code: 54555, 27568 x15 METHODOLOGY: Deparaffinized sections of prefer/formalin-fixed tissue or PAP/DQ stained slides are incubated with monoclonal/polyclonal antibodies/oligonucleotide probes. Localization is made via biotin free immunoperoxidase method. Appropriate controls are performed and reacted as expected. Results on target cell population are indicated in the following table: RESULTS: ANTIBODY / CLONE RESULT AE1-3 (AE1/AE3/PCK26) positive CK7 (OV-TL12/30) positive CK8 (50isfuE05) positive CK20 (KS20.8) negative BERUMEN-2 (SP21) positive, dim CDX2 (MKL0698O) negative S-100 (4C4.9) negative TTF-1 (8G7G3/1) positive Napsin A (Rabbit Polyclonal) positive PSAP (PASE/4LJ) negative P53 (DO-7) positive, 15% Ki-67 (30-9) positive, >90% GATA3 (L50-823) negative P40 (BC28) negative CK5-6 (D5 & 1684) negative CK14 (LL002) negative These tests were developed and their performance characteristics determined by [facility]. They may not have been cleared or approved by the U.S. Food and Drug Administration. The FDA has determined that such clearance or approval is not necessary. The above immunohistochemical/dualISH markers are ordered and reviewed by the Pathologist. INTERPRETATION: Left flank, biopsy: Consistent with metastatic lung adenocarcinoma. AM:dat 03/08/2021
--- NOTE | 2021-03-02 10:00 | MASS_PTH ---
PATIENT: MARIKA SCALES LOC: [facility] U#:[id number] AGE/SX: 55/M ROOM: RE03/02/[address]: Dr. Gio Robison MD : 1965 BED: DIS: 03/02/2021 SPEC #: [id number] RECD: 03/02/21 16:38 STATUS: MCKAYLA REAbhijit #: [id number] MORIS: 03/02/21 10:[address]: Gio Robison DEPT: SURGICAL PATHOLOGY RECD BY: Jaci Henson ENTERED: 03/03/21 13:18 SP TYPE: Mass OTHR DR: Dr. Saulo Cooney MD Tissues: Flank, NOS Procedures: Surgery Specimen Level IV HEADER OPERATION: Left flank biopsy PRE-OP DIAGNOSIS: Left flank mass TISSUE SUBMITTED: Left flank tissue MICROSCOPIC DIAGNOSIS Left flank mass, core biopsy: Metastatic adenocarcinoma consistent with lung primary. See comment. AM:dat 03/04/2021 COMMENT Immunohistochemistry ([id number]) supports the above diagnosis. MICROSCOPIC DESCRIPTION Slides are reviewed. GROSS DESCRIPTION Received in fixative is one container labeled with the patient's name and designated left flank. The specimen consists of multiple cores of light burton tissue that in aggregate measure 2.2 x 0.6 x 0.1 cm. The specimen is totally submitted in one cassette. / AM:dat 03/03/21 TC:0 CPT: 34035
== END | disposition home or self-care (01) ==
LOC: LABSPEC 03-03 11:50
PROVIDERS: PCP Family Medicine; Visit Provider Surgery
DX: C79.89 Secondary malignant neoplasm of other specified sites (principal)
CPT/HCPCS: 88305; 88341; 88342

== ENCOUNTER → 2021-03-03 13:10 | Outpatient (CLI) | payer OTHER, SELFPAY ==
--- NOTE | 2021-03-03 13:12 | RAD_ITS ---
STUDY: X-RAY - RIGHT FEMUR REASON FOR STUDY: Male, 55 years old. NO COMPLAINTS, NEW DIAGNOSIS OF LUNG CA- CHECKING BONES D/T SOME ENHANCED AREAS ON A RECENT PET SCAN TECHNIQUE: 2 view(s) of the femur. COMPARISON: 03/01/2021 PET scan FINDINGS: No demonstrated fracture. Lesion evident on prior PET scan (lesser trochanter level) is not clearly seen. Normal visualized soft tissue structure. RAD/Femur Min 2 Views IMPRESSION: 1. No demonstrated fracture or demonstrated lytic/sclerotic lesion. Electronically Signed: Markel Pride MD (Brooks) at 13:41 EST , Service support ,
--- NOTE | 2021-03-03 13:12 | RAD_ITS ---
STUDY: X-RAY - RIGHT HUMERUS REASON FOR EXAM: Male, 55 years old. BONE METS, R/O IMPENDING PATH TECHNIQUE: 2 view(s) of the humerus. COMPARISON: 03/01/2021 FINDINGS: No demonstrated fracture. Lesion of the proximal left humerus on prior PET scan is not clearly seen on x-ray. There is no demonstrated soft tissue abnormality. RAD/Humerus min 2 Views IMPRESSION: Lesion of the proximal left humerus on prior PET scan is not clearly seen on x-ray. No pathologic fracture. Electronically Signed: Markel Pride MD (Brooks) at 13:44 EST , Service support ,
--- NOTE | 2021-03-03 13:19 | RAD_ITS ---
STUDY: X-RAY - LEFT HUMERUS REASON FOR EXAM: Male, 55 years old. NO COMPLAINTS, NEW DIAGNOSIS OF LUNG CA- CHECKING BONES D/T SOME ENHANCED AREAS ON A RECENT PET SCAN TECHNIQUE: 2 view(s) of the humerus. COMPARISON: 03/01/2021 PET scan FINDINGS: No demonstrated fracture. Lesion of the proximal left humerus on prior PET scan is not clearly seen on x-ray. There is no demonstrated soft tissue abnormality. RAD/Humerus min 2 Views IMPRESSION: Lesion of the proximal left humerus on prior PET scan is not clearly seen on x-ray. No pathologic fracture. Electronically Signed: Markel Pride MD (Brooks) at 13:42 EST , Service support ,
== END ==
PROVIDERS: PCP Family Medicine; Referring Provider Internal Medicine Hematology & Oncology; Visit Provider Internal Medicine Hematology & Oncology
DX: C79.51 Secondary malignant neoplasm of bone (principal); C34.92 Malignant neoplasm of unspecified part of left bronchus or lung
CPT/HCPCS: 73060; 73552

== ENCOUNTER 2021-03-07 09:16 | Emergency (ER) | payer OTHER, SELFPAY ==
[2021-03-07 09:17] VITALS: BP 104/65; PULSE 94; RESP 17; TEMP 37.3; O2SAT 98; BMI 25.4
--- NOTE | 2021-03-07 09:20 | EKG12_ITS ---
Test Reason : CP Blood Pressure : / mmHG Vent. Rate : 093 BPM Atrial Rate : 093 BPM P-R Int : 136 ms QRS Dur : 086 ms QT Int : 350 ms P-R-T Axes : 019 029 041 degrees QTc Int : 435 ms Normal sinus rhythm Low voltage QRS Borderline ECG Confirmed by MARANDA PHELAN, LINDSAY ([id number]), film or videotape editor SUSIE DICK ([id number]) on 03/09/2021 11:28:09 AM Referred By: GUY Confirmed By:LINDSAY LOW MD
[2021-03-07 09:34] LABS: Absolute Lymphocyte Count 1.71 X10^3/uL (0.83-4.51); Basophil# 0.07 X10^3/uL; Basophil% 0.3 % (0-1); Hemoglobin 9.7 g/dL (13.0-16.5); Lymphocyte # 1.71 X10^3/ul (0.83-4.51); Lymphocyte % 6.2 % (19-41); Mean Corp Hgb Conc 31.3 g/dL (32-36); Mean Corpuscular Hgb 26.1 pg (27.0-32.0); Mean Corpuscular Volume 83.3 fL (80-94); Mean Platelet Vol. 8.6 fl (6.2-12.0); Monocyte# 1.04 X10^3/uL; Monocyte% 3.8 % (0-10); NRBC Flagged by Analyzer 0 % (0-5); Neutrophil # 21.04 X10^3/uL (2.7-7.7); Neutrophil % 76.1 % (47-70); POSITIVE DIFFERENTIAL YES; Platelet Count 494 K/mm3 (150-450); RBC Distribution Width CV 14.3 % (11.6-14.6); RBC Distribution Width SD 43.9 fl (35.1-43.9); Red Blood Count 3.72 M/mm3 (4.6-6.2); White Blood Count 27.6 K/mm3 (4.4-11.0)
[2021-03-07 09:35] LABS: Differential Indicated SCAN CRITERIA MET; Eosinophil# 3.32 X10^3/uL
[2021-03-07 09:47] LABS: Anion Gap 6 (5-15); BUN 12 mg/dL (7-18); Calcium,Total 8.8 mg/dL (8.5-10.1); Chloride 103 mmol/L (98-107); Creatinine, Serum 0.71 mg/dL (0.70-1.30); EST Glomerular Filtration Rate 123 mL/min (>60); Est Glom Filt Rate - Afr Amer 149 mL/min (>60); Estimated Creatinine Clearance 130.55 ml/min; Glucose 104 mg/dL (74-106); Potassium 4.1 mmol/L (3.5-5.1); Sodium Level 137 mmol/L (136-145); Troponin-I HS 3 pg/mL (3.0-78.0)
--- NOTE | 2021-03-07 09:50 | CT_ITS ---
STUDY: CTA CHEST REASON FOR EXAM: Male, 55 years old. cp, syncope RADIATION DOSAGE (If Supplied By Facility): CTDIvol = ( 15.59 ) mGy, DLP = ( 544.17 ) mGycm TECHNIQUE: The examination was performed with the intravenous administration of IV 100mL Isovue-370. Post-processing of the angiographic images was performed, with multiplanar reformation and 3D reconstruction. Individualized dose optimization techniques were used for this CT. COMPARISON: 03/01/2021 FINDINGS: Normal enhancement of the main pulmonary artery and right and left pulmonary arteries. Left upper lobe segmental pulmonary artery is occluded by mass effect. There is no demonstrated pulmonary embolism. Normal thoracic aorta and visualized great vessels. There is no demonstrated aortic dissection. Normal heart and pericardium. No mediastinal shift. Subpleural consolidation of left lower lobe has developed since prior PET scan. Large mass of the left upper lung extending to the left hilum with extension into the mediastinum and left hilar adenopathy overall similar. Similar volume small left pleural effusion. New trace right pleural effusion. Normal chest wall structures. No destructive bony process identified. Left adrenal gland mass evident on prior PET scan is redemonstrated. CT/CTA Chest W/WO Contrast IMPRESSION: 1. No central or segmental pulmonary embolism. 2. Large left upper lobe mass with extension into the mediastinum and left hilar adenopathy. Left adrenal mass/metastasis. Not significantly changed since recent PET scan. 3. Small left pleural effusion, stable. New trace right pleural effusion. 4. Left lower lobe consolidation could represent atelectasis versus pneumonia, new. Electronically Signed: Markel Pride MD (Brooks) at 10:55 EST , Service support ,
--- NOTE | 2021-03-07 09:50 | EDS_ITS ---
HPI History of Present Illness Chief Complaint: Syncope Informant: patient and spouse/S.O. Onset/Context/Timing Onset: Today Narrative Narrative: Patient presents after syncopal episode at home. Patient was recently, within the past couple weeks, diagnosed with lung cancer with metastases to the bone and left adrenal gland. Patient has been undergoing multiple tests. He is currently on antibiotics for postobstructive pneumonia. This morning patient was sitting at a barstool at the [facility]. Had a syncopal episode and fell to the floor. He has been complaining of right chest tightness for the past couple days. He does not remember the incident and does not remember feeling palpitations or any warning signs before the syncopal episode. 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 present Shortness of breath on exertion Home Medications benzonatate 100 mg capsule 100 mg PO BID-TID PRN 03/03/21 [History Last Taken Unknown] levofloxacin 500 mg tablet 500 mg PO DAILY 03/03/21 [History Last Taken Unknown] ondansetron HCl 4 mg tablet 4 mg PO Q8H 03/03/21 [History Last Taken Unknown] promethazine 6.25 mg/5 mL oral syrup 6.25 mg PO Q6H PRN ml 03/03/21 [History Last Taken Unknown] dexamethasone [Decadron] 6 mg PO DAILY #9 tab 03/07/21 [Rx Last Taken Unknown] Allergy/AdvReac Type Severity Reaction Status Date / Time No Known Allergies Allergy Verified 03/07/21 09:20 Family History Mother Diabetes Surgical History History of lung biopsy Social History household members: spouse Smoking Status: Former smoker quit date: 03/26/79 pack-years: 2 Tobacco: How many years used: 2 second hand exposure: No details: occasionally substance use type: does not use radha/gnosticism: Buddhist seatbelt use: always do you feel safe at home: Yes ROS ROS ED Constitutional Constitutional ED: Denies chills or fever(s) Eyes Eyes: Denies change in vision ENT ENT ED: Denies sore throat Cardiovascular Cardiovascular: Reports chest pain Respiratory/Chest Respiratory/Chest: Reports cough and dyspnea Gastrointestinal Gastrointestinal: Denies abdominal pain, diarrhea, nausea or vomiting Genitourinary Genitourinary ED: Denies dysuria Musculoskeletal Musculoskeletal: Denies back pain Integumentary Denies rash Neurologic Neurologic: Reports weakness; Denies headache(s) Allergic/Immunologic Allergic/Immunologic ED: Denies urticaria EXAM Physical Exam Const Vital Signs: 03/07/21 09:17 03/07/21 10:03 03/07/21 11:03 Temperature 99.2 F H Temperature Source Temporal Pulse Rate 94 106 H 112 H Respiratory Rate 17 28 H 27 H Blood Pressure 104/65 123/78 H 118/75 Blood Pressure Mean 78 93 89 Pulse Ox 98 97 95 Oxygen Delivery Method Room Air Nasal Cannula Nasal Cannula Oxygen Flow Rate (L/min) 2 2 03/07/21 12:05 Temperature Temperature Source Pulse Rate 109 H Respiratory Rate 25 H Blood Pressure 117/72 Blood Pressure Mean 87 Pulse Ox 97 Oxygen Delivery Method Nasal Cannula Oxygen Flow Rate (L/min) 2 Positive well nourished and well developed General Appearance ED: well developed Eyes EOMs intact bilaterally Neck supple Chest Wall inspection of chest normal and palpation of chest normal Resp normal respiratory effort Resp Narrative: Lung sounds diminished on the left. Cardio regular rate and regular rhythm GI non-tender Palpation: soft Extremity normal to inspection Neuro oriented x3 Sensorium / Orientation: alert Skin no rashes or lesions noted MDM MDM MDM Narrative Medical decision making narrative: Lab work, EKG, chest x-ray obtained per nursing protocol. Covid swab and CTA chest added to the time of my exam. Lab Data Attestation: I reviewed the patient's lab results. Labs: Laboratory Results - last 24 hr 03/07/21 03/07/21 08:40 08:40 WBC 27.6 H RBC 3.72 L Hgb 9.7 L Hct 31.0 L MCV 83.3 MCH 26.1 L MCHC 31.3 L RDW Std Deviation 43.9 RDW Coeff of Yuki 14.3 Plt Count 494 H MPV 8.6 Immature Gran % (Auto) 1.600 H Neut % (Auto) 76.1 H Lymph % (Auto) 6.2 L Barry % (Auto) 3.8 Eos % (Auto) 12.0 H Baso % (Auto) 0.3 Absolute Neuts (auto) 21.0 H Absolute Lymphs (auto) 1.71 Nucleated RBC % 0 Sodium 137 Potassium 4.1 Chloride 103 Carbon Dioxide 28.0 Anion Gap 6 BUN 12 Creatinine 0.71 Estim Creat Clear Calc 130.55 Est GFR (MDRD) Af Amer 149 Est GFR (MDRD) Non-Af 123 BUN/Creatinine Ratio 17.0 Glucose 104 Calcium 8.8 Troponin I High Sens 3 Rapid Covid: Positive Radiography Chest X-Ray - ED: 1 View, Read by ED Physician and - (White out on left side) Diagnostic Testing: Clinical Impression(s) from Imaging Studies Chest CTA 03/07/21 09:50 IMPRESSION: 1. No central or segmental pulmonary embolism. 2. Large left upper lobe mass with extension into the mediastinum and left hilar adenopathy. Left adrenal mass/metastasis. Not significantly changed since recent PET scan. 3. Small left pleural effusion, stable. New trace right pleural effusion. 4. Left lower lobe consolidation could represent atelectasis versus pneumonia, new. Electronically Signed: Markel Pride MD (Brooks) at 10:55 EST , Service support , Chest X-Ray 03/07/21 10:25 IMPRESSION: 1. Small bilateral pleural effusions better seen on CTA earlier today. 2. Left upper lung mass as seen on PET scan 03/01/2021 3. Developing atelectasis in the left lung base. Electronically Signed: Markel Pride MD (Brooks) at 10:45 EST , Service support , EKG Initial EKG: Attestation: I personally reviewed and interpreted this EKG as follows: Interpretation: Sinus Rhythm (Sinus at 93 with no acute ischemia.) Treatment and Re-Evaluation Comments:: Test results discussed with patient as well as at bedside. Friend who is also an RN and helping care for him at home is at bedside. Patient does have elevated white count, but consistent with his previous recent lab draws. Hemoglobin stable. Troponin negative. Renal function normal. CTA reveals bilateral pleural effusions. Left upper lobe mass not significantly changed when compared to prior studies. There is now a new left lower lobe consolidation which may represent atelectasis or pneumonia. I did recommend hospitalization for observation of cardiac rhythm as patient had a syncopal episode with no prodrome. At this time he prefers to go home. RN friend at bedside states that she will be there to monitor him. They do agree to Decadron treatment at home and this prescription will be written. They declined referral for monoclonal antibodies. They did ask for prescriptions for Pulmicort and if ivermectin would be an option. I advised that these are not in our protocols for appropriate treatment of Covid and I would not write them. They were advised that they can return for treatment at any time. Discharge Plan Triage Chief Complaint: Syncope ED Provider: Lilibeth Casillas Dx/Rx/DC Orders Clinical Impression: COVID-19, Syncope, Metastatic primary lung cancer Instructions: Coronavirus Disease 2019 (COVID-19): Overview, Coronavirus Disease 2019 (COVID-19): Caring for Yourself or Others, ED Fainting, Uncertain Cause Prescriptions: New dexamethasone [Decadron] 6 mg tablet 6 mg PO DAILY Qty: 9 RF: 0 No Action benzonatate 100 mg capsule 100 mg PO BID-TID PRNRF: 0 ondansetron HCl [Zofran] 4 mg tablet 4 mg PO Q8H RF: 0 levofloxacin 500 mg tablet 500 mg PO DAILY RF: 0 promethazine 6.25 mg/5 mL syrup 6.25 mg PO Q6H PRN (Reason: nausea and vomiting) RF: 0 Primary Care Provider: Saulo Cooney Referrals: Saulo Cooney MD [Primary Care Provider] - As soon as possible Disposition Disposition: Home, Self Care
[2021-03-07 10:03] VITALS: BP 123/78; PULSE 106; RESP 28; O2SAT 97
--- NOTE | 2021-03-07 10:25 | RAD_ITS ---
STUDY: X-RAY CHEST REASON FOR EXAM: Male, 55 years old. chest pain TECHNIQUE: AP COMPARISON: Chest CTA from earlier today, PET scan 03/01/2021 FINDINGS: Patchy atelectasis in the right lung. Masslike consolidation predominantly upper lung better seen on CT from earlier today. No pneumothorax. Small pleural effusions are better seen on prior CTA. Normal size heart. Normal mediastinum and fransisco. Normal visualized pulmonary arteries. Normal visualized aortic arch and descending thoracic aorta. No acute bony process. There is no demonstrated abnormality of the visualized soft tissue structures of the upper abdomen. RAD/Chest 1 View (Portable) IMPRESSION: 1. Small bilateral pleural effusions better seen on CTA earlier today. 2. Left upper lung mass as seen on PET scan 03/01/2021 3. Developing atelectasis in the left lung base. Electronically Signed: Markel Pride MD (Brooks) at 10:45 EST , Service support ,
[2021-03-07 11:03] VITALS: BP 118/75; PULSE 112; RESP 27; O2SAT 95
[2021-03-07 12:05] VITALS: BP 117/72; PULSE 109; RESP 25; O2SAT 97
[2021-03-07] MEDS: dexAMETHasone 4 MG Tablet 6 MG PO (12:34)
== END 2021-03-07 12:39 | disposition home or self-care (01) ==
PROVIDERS: Emergency Provider Emergency Medicine; PCP Family Medicine
DX: U07.1 COVID-19 (principal); R55 Syncope and collapse; C34.90 Malignant neoplasm of unspecified part of unspecified bronchus or lung; C79.51 Secondary malignant neoplasm of bone; C79.72 Secondary malignant neoplasm of left adrenal gland; J18.9 Pneumonia, unspecified organism; J90 Pleural effusion, not elsewhere classified; Z87.891 Personal history of nicotine dependence
CPT/HCPCS: 71045; 71275; 80048; 84484; 85025; 87426; 93005; 99284; Q9967

== ENCOUNTER 2021-03-10 12:20 | Inpatient (IN) | payer OTHER, SELFPAY ==
[2021-03-10] VITALS (10 sets, daily range): BP systolic 99–138; BP diastolic 62–94; PULSE 90–104; RESP 18–22; TEMP 36.2–38.4; O2SAT 93–96; BMI 24.4; BMI 24.5
--- NOTE | 2021-03-10 13:11 | CT_ITS ---
STUDY: CT ABDOMEN AND PELVIS WITH CONTRAST REASON FOR EXAM: Male, 55 years old. Abdominal Pain RADIATION DOSAGE (If Supplied By Facility): CTDIvol = ( 11.65 ) mGy, DLP = ( 899.15 ) mGycm TECHNIQUE: Transaxial images were obtained from the dome of the diaphragm to the symphysis pubis without oral contrast. IV 100mL Isovue-300 was administered. Sagittal and coronal images were reconstructed. Individualized dose optimization techniques were used for this CT. COMPARISON: None. FINDINGS: Small bilateral pleural effusions with bibasilar ectasis. The visualized portions of the heart are within normal limits. Normal liver. Tiny gallstones are seen in the neck of the gallbladder. Normal spleen. There is diffuse enlargement of the pancreas with asiya-pancreatic edema suggesting acute pancreatitis. There is a small, circumscribed, smooth, low attenuation left adrenal mass, consistent with an adrenal adenoma. This measures 2.6 cm. Normal right adrenal gland. Normal right kidney. Normal left kidney. Normal visualized stomach. Normal small intestine. Normal colon. The appendix is visualized and appears normal. Normal abdominal aorta. Normal inferior vena cava. Normal retroperitoneum. Normal urinary bladder. Small amount of fluid is seen in the cul-de-sac. There is a small umbilical hernia containing fat. Normal osseous structures. CT/Abdomen/Pelvis W IV Cont ONLY IMPRESSION: Findings in keeping with a mild degree of pancreatitis. Small gallstones are seen in the dependent portion of the gallbladder lumen. Small amount of fluid is seen in the cul-de-sac. Electronically Signed: Cole Mann MD at 14:58 EST , Service support ,
--- NOTE | 2021-03-10 13:12 | EDS_ITS ---
HPI HPI - GI History of Present Illness Chief Complaint: Abd Pain Narrative Narrative: Patient presents with abdominal pain that he has had since Sunday/Sunday, 3 to 4 days ago. He states that he has past medical history of lung carcinoma which was recently diagnosed on . He was being treated for pneumonia. Patient has had increased pain in his abdomen all over. They thought maybe he had pulled a muscle, but he experienced nausea and vomiting over the last 24 hours. He denies any blood in his vomit, but has noted diarrhea/loose stools. He has diffuse pain everywhere in his abdomen. Is worse with touching, and relieved by nothing. No fevers or chills. 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 Shortness of breath on exertion Home Medications benzonatate 100 mg capsule 100 mg PO BID-TID PRN 03/03/21 [History Last Taken Unknown] levofloxacin 500 mg tablet 500 mg PO DAILY 03/03/21 [History Last Taken Unknown] ondansetron HCl 4 mg tablet 4 mg PO Q8H 03/03/21 [History Last Taken Unknown] dexamethasone [Decadron] 6 mg PO DAILY #9 tab 03/07/21 [Rx Last Taken Unknown] fluticasone propionate [Flonase] 1 spray INTRANASAL BID 03/10/21 [History Last Taken Unknown] omeprazole [Prilosec] 40 mg PO DAILY 03/10/21 [History Last Taken Unknown] Allergy/AdvReac Type Severity Reaction Status Date / Time No Known Allergies Allergy Verified 03/10/21 13:18 Family History Mother Diabetes Surgical History History of lung biopsy Social History household members: spouse Smoking Status: Former smoker quit date: 03/26/79 pack-years: 2 Tobacco: How many years used: 2 second hand exposure: No details: occasionally substance use type: does not use radha/confucianism: Buddhist seatbelt use: always do you feel safe at home: Yes ROS ROS ED ROS Narrative Constitutional: No fever, no chills. HEENT: No sore throat. No neck pain. No loss of vision. No rhinorrhea. Cardiovascular: No chest pain. No palpitations. No pedal edema. Respiratory: No cough, no shortness of breath. Abdominal: Positive diffuse abdominal pain. Positive nausea. Positive vomiting. Positive diarrhea. Genitourinary: No dysuria. No hematuria. Musculoskeletal: No myalgias. No arthralgias. Neurologic: No headaches. No dizziness. No lightheadedness. Skin: No rash. No change in color. Psychiatric: No depression. No anxiety. EXAM Physical Exam Const Vital Signs: 03/10/21 12:21 03/10/21 13:14 03/10/21 14:14 Temperature 97.2 F L 98.6 F 98.4 F Temperature Source Temporal Temporal Temporal Pulse Rate 90 94 96 Respiratory Rate 18 20 H 18 Blood Pressure 99/62 123/70 H 134/78 H Blood Pressure Mean 74 87 96 Pulse Ox 96 94 95 Oxygen Delivery Method Room Air Room Air Room Air 03/10/21 14:49 Temperature Temperature Source Pulse Rate 104 H Respiratory Rate 18 Blood Pressure 135/85 H Blood Pressure Mean 101 Pulse Ox 96 Oxygen Delivery Method Room Air MDM MDM MDM Narrative Medical decision making narrative: Comprehensive work-up was pursued. Patient does have an elevated white count of 25.8, however it has been high in the 30s previously. His hemoglobin is stable at 10.7, platelet count slightly elevated at 463. His CMP shows sodium slightly low at 134 with a creatinine of 0.65 and a BUN of 13. Glucose is appropriately elevated at 138. His AST is normal at 32 and ALT slightly elevated at 69 with alk phos 117 and total bilirubin normal at 0.8. His lipase is elevated at 16,170. Initially had been administered morphine for pain, but given a dose of Dilaudid along with ondansetron. His CT of the abdomen and pelvis does show mild pancreatitis. There are small gallstones in the dependent portion of the gallbladder. Given his elevated lipase and gallstones seen on CT scan, ultrasound of the right upper quadrant/gallbladder was obtained. His urinalysis is negative for infection. Given his pancreatitis, I do feel that he will require admission. However, with his ultrasound results still pending, he will need to possibly be discussed with surgery in the event that surgical intervention is needed. He will be signed out to the oncoming physician. He is in stable condition. Lab Data Attestation: I reviewed the patient's lab results. Labs: Laboratory Results - last 24 hr 03/10/21 03/10/21 03/10/21 12:53 12:53 15:15 WBC 25.8 H RBC 4.20 L Hgb 10.7 L Hct 34.3 L MCV 81.7 MCH 25.5 L MCHC 31.2 L RDW Std Deviation 42.9 RDW Coeff of Yuki 14.5 Plt Count 463 H MPV 8.6 Immature Gran % (Auto) 1.900 H Neut % (Auto) 84.3 H Lymph % (Auto) 4.5 L [place] % (Auto) 3.8 Eos % (Auto) 5.3 H Baso % (Auto) 0.2 Absolute Neuts (auto) 21.8 H Absolute Lymphs (auto) 1.17 Nucleated RBC % 0 Sodium 134 L Potassium 3.5 Chloride 101 Carbon Dioxide 28.0 Anion Gap 5 BUN 13 Creatinine 0.65 L Estim Creat Clear Calc 142.60 Est GFR (MDRD) Af Amer 164 Est GFR (MDRD) Non-Af 135 BUN/Creatinine Ratio 19.9 Glucose 138 H Calcium 9.5 Total Bilirubin 0.80 AST 32 ALT 69 H Alkaline Phosphatase 117 Total Protein 7.8 Albumin 2.5 L Globulin 5.3 H Albumin/Globulin Ratio 0.5 L Lipase 85118 H Urine Color Yellow Urine Clarity Clear Urine pH 6.5 Ur Specific [place] 1.010 Urine Protein 30 H Urine Glucose (UA) Normal Urine Ketones Negative Urine Occult Blood Negative Urine Nitrite Negative Urine Bilirubin Negative Urine Urobilinogen Normal Ur Leukocyte Esterase Negative Urine RBC 0 SEEN Urine WBC 0-5 SEEN Ur Squamous Epith Cells 0 SEEN Urine Bacteria 0 SEEN Urine Mucus 0 SEEN Radiography Diagnostic Testing: Clinical Impression(s) from Imaging Studies Abdomen/Pelvis CT 03/10/21 13:11 IMPRESSION: Findings in keeping with a mild degree of pancreatitis. Small gallstones are seen in the dependent portion of the gallbladder lumen. Small amount of fluid is seen in the cul-de-sac. Electronically Signed: Cole Mann MD at 14:58 EST , Service support , Discharge Plan Triage Chief Complaint: Abd Pain ED Provider: Damien Garcia Dx/Rx/DC Orders Prescriptions: No Action benzonatate 100 mg capsule 100 mg PO BID-TID PRN (Reason: Cough) RF: 0 ondansetron HCl [Zofran] 4 mg tablet 4 mg PO Q8H RF: 0 levofloxacin 500 mg tablet 500 mg PO DAILY RF: 0 dexamethasone [Decadron] 6 mg tablet 6 mg PO DAILY Qty: 9 RF: 0 omeprazole [Prilosec] 40 mg Capsule,Delayed Release(Dr/Ec) 40 mg PO DAILY RF: 0 fluticasone propionate [Flonase] 50 mcg/actuation [place],Suspension 1 spray INTRANASAL BID RF: 0 Primary Care Provider: Saulo Cooney
--- NOTE | 2021-03-10 13:30 | ED.RN ---
upon arriving to pt. room, at bedside and a nurse advocate.
[2021-03-10 13:33] LABS: Absolute Lymphocyte Count 1.17 X10^3/uL (0.83-4.51); Absolute Neutrophil Count 21.8 X10^3/uL (2.0-7.7); Basophil# 0.05 X10^3/uL; Basophil% 0.2 % (0-1); Eosinophil# 1.38 X10^3/uL; Eosinophils% 5.3 % (0-5); Hematocrit 34.3 % (40-54); Hemoglobin 10.7 g/dL (13.0-16.5); Lymphocyte # 1.17 X10^3/ul (0.83-4.51); Lymphocyte % 4.5 % (19-41); Mean Corp Hgb Conc 31.2 g/dL (32-36); Mean Corpuscular Hgb 25.5 pg (27.0-32.0); Mean Corpuscular Volume 81.7 fL (80-94); Mean Platelet Vol. 8.6 fl (6.2-12.0); Monocyte# 0.97 X10^3/uL; Monocyte% 3.8 % (0-10); NRBC Flagged by Analyzer 0 % (0-5); Neutrophil # 21.77 X10^3/uL (2.7-7.7); Neutrophil % 84.3 % (47-70); POSITIVE DIFFERENTIAL YES; Platelet Count 463 K/mm3 (150-450); RBC Distribution Width CV 14.5 % (11.6-14.6); RBC Distribution Width SD 42.9 fl (35.1-43.9); White Blood Count 25.8 K/mm3 (4.4-11.0)
[2021-03-10] MEDS: Ondansetron 4 MG/2 ML Vial IV ×2 (13:34→19:13)
[2021-03-10] MEDS: Morphine 4 MG/ML Syringe IV ×2 (13:34→21:03)
[2021-03-10] MEDS: 0.9% Normal Saline 1,000 ML 1000 ML IV (13:34)
[2021-03-10 13:38] LABS: Differential Indicated SCAN CRITERIA MET
[2021-03-10 13:49] LABS: ALB/GLOB Ratio 0.5 RATIO (0.9-2.4); AST(SGOT) 32 U/L (15-37); Alanine Aminotransfer ALT/SGPT 69 U/L (16-61); Albumin, Serum 2.5 g/dL (3.2-5.0); Alkaline Phosphatase 117 U/L (45-117); Anion Gap 5 (5-15); BUN 13 mg/dL (7-18); BUN/Creat Ratio 19.9 RATIO (10-20); Calcium,Total 9.5 mg/dL (8.5-10.1); Chloride 101 mmol/L (98-107); Creatinine, Serum 0.65 mg/dL (0.70-1.30); EST Glomerular Filtration Rate 135 mL/min (>60); Est Glom Filt Rate - Afr Amer 164 mL/min (>60); Globulin 5.3 g/dL (2.2-4.2); Glucose 138 mg/dL (74-106); Lipase 16170 U/L (73-393); Potassium 3.5 mmol/L (3.5-5.1); Protein, Total 7.8 g/dL (6.4-8.2); Sodium Level 134 mmol/L (136-145)
[2021-03-10] MEDS: HYDROmorphone 1 MG/ML Syringe IV (15:01)
--- NOTE | 2021-03-10 15:12 | US_ITS ---
STUDY: ABDOMINAL ULTRASOUND - RIGHT UPPER QUADRANT REASON FOR VISIT: Male, 55 years old pancreatitis TECHNIQUE: Ultrasound evaluation of the right upper quadrant was performed with real-time and static barrios-scale imaging. TECHNICAL QUALITY: Limited. Examination limited by bowel gas. COMPARISON: CT of abdomen and pelvis dated March 10, 2021 FINDINGS: Liver: The liver is mildly enlarged, measuring 20 cm. There is normal echogenicity of the liver. The bile ducts are within normal limits. There is hepatic color flow. The direction of portal flow is hepatopetal. There is no demonstrated mass lesion. Gallbladder: Normal distended gallbladder. The gallbladder wall measures 1.9 mm. There is a negative sonographic Melendez''s sign. There is no pericholecystic fluid. Several small gallstones are present. Common Bile Duct (C.B.D.): The common bile duct measures 4.0 mm. Pancreas: There is nonvisualization of the pancreas. Right Kidney: Normal size of the right kidney. The right kidney measures 12.2 x 6.4 x 4.9 cm. Normal renal cortex. The right cortex measures 1.4 cm. There is no demonstrated renal mass or cyst. There is no right hydronephrosis. US/Gallbladder IMPRESSION: 1. Several small gallstones 2. Mildly enlarged liver. Electronically Signed: Jethro Porter MD at 16:54 EST , Service support ,
[2021-03-10 15:20] LABS: Bacteria 0 SEEN /hpf (None Seen); Mucous, Urine 0 SEEN /hpf (<or=2+); Red Blood Cells-Urine 0 SEEN /hpf (0-5); Squamous Epithelial Cells - UA 0 SEEN /hpf (0-5)
[2021-03-10 15:23] LABS: Color, Urine Yellow (Yellow); Glucose, Dipstick Normal (Normal); Ketone-Dipstick Negative (Negative); Leukocyte Esterase-Dipstick Negative /ul (Negative); Nitrite-Dipstick Negative (Negative); Occult Blood-Urine Negative /ul (Negative); Protein-Dipstick 30 mg/dl (Negative); Urine Bilirubin Dipstick Negative (Negative); Urine Clarity Clear (Clear); Urine Urobilinogen Normal (Normal); Urine pH 6.5 (5.0 - 8.0)
[2021-03-10 15:31] LABS: White Blood Cells 0-5 SEEN /hpf (0-5)
--- NOTE | 2021-03-10 17:17 | RAD_ITS ---
INDICATION: covid pneumonia, lung ca EXAMINATION/TECHNIQUE: X-RAY - XR Chest 1 View COMPARISON: 03/07/2021. FINDINGS: Unchanged near whiteout of the left lung. The cardiomediastinal silhouette is obscured. Slightly improved small left pleural effusion. The osseous structures are unchanged. RAD/Chest 1 View (Portable) IMPRESSION: Unchanged near whiteout of the left lung likely due to a combination of known left upper lobe lung mass with atelectasis versus pneumonia. Improved small left pleural effusion. Electronically Signed: Tutu Drake MD at 20:10 EST Tel , Service support ,
--- NOTE | 2021-03-10 17:24 | NURSING ---
MED SURG JASE PANCREATITIS, COVID
--- NOTE | 2021-03-10 18:10 | HP.PCM.HOS_ITS ---
HPI - General General Date of Admission: 03/10/21 HPI Narrative MARIKA SCALES, is a 55 M with history of lung cancer, left lung with encasement of mediastinum and adjacent to structure, non-small cell lung cancer adenocarcinoma, recent diagnosis in January 2021 came to ED for abdominal pain mainly epigastric region and then became generalized for last 2 to 3 days. Patient also has been vomiting for last 2 to 3 days and has diarrhea. Prior to that he came to ED on past Sunday on 03/07/2021 after syncopal episode. Patient complaining of right-sided chest tightness past couple days. At that time patient was found COVID-19 positive. CTA chest reveals bilateral pleural effusion left upper lobe mass not significantly changed but new left lower lobe consolidation. Patient was recommended hospitalization but he refused. He was given prescription for Decadron. He also declined monoclonal antibodies and asked for prescription ivermectin which was declined. In ED, hemodynamic parameters are in acceptable limit. Pulse ox 95% on room air. No tachypnea The lipase is found elevated, 16,170. Clinically and biochemically, diagnosed acute pancreatitis. Patient denied any previous episode of pancreatitis. He occasionally drinks. Never had acute abdomen/acute cholecystitis episode. CT abdomen pelvis was done which showed mild degree of pancreatitis small gallstones in the dependent portion of [place]. Gallbladder ultrasound shows several small gallstones but GB wall 1.9 mm, negative sonographic Melendez sign, no pericholecystic fluid. CBD 4 mm. 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 I think she gave because of concern of abdominal pain probably due to worms. At this time, patient is nurse advocate and agreed for admission admission. 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 Shortness of breath on exertion Home Medications benzonatate 100 mg capsule 100 mg PO BID-TID PRN 03/03/21 [History Last Taken 03/09/21] levofloxacin 500 mg tablet 500 mg PO DAILY 03/03/21 [History Last Taken 03/09/21] ondansetron HCl 4 mg tablet 4 mg PO Q8H 03/03/21 [History Last Taken Unknown] dexamethasone [Decadron] 6 mg PO DAILY #9 tab 03/07/21 [Rx Last Taken 03/09/21] fluticasone propionate [Flonase] 1 spray INTRANASAL BID 03/10/21 [History Last Taken 03/09/21] omeprazole [Prilosec] 40 mg PO DAILY 03/10/21 [History Last Taken 03/09/21] Allergy/AdvReac Type Severity Reaction Status Date / Time No Known Allergies Allergy Verified 03/10/21 13:18 Family History Mother Diabetes Surgical History History of lung biopsy Social History household members: spouse Smoking Status: Former smoker quit date: 03/26/79 pack-years: 2 Tobacco: How many years used: 2 second hand exposure: No details: occasionally substance use type: does not use radha/faith: Sabianism seatbelt use: always do you feel safe at home: Yes ROS ROS Narrative Constitutional: Reports fatigue and weakness, mild short of breath HEENT: Reports systems reviewed and no addt'l complaints, except as documented Respiratory/Chest: Dyspnea on exertion. Denies chest pain Gastrointestinal: As described in HPI Genitourinary: Denies burning urination or new urinary tract symptoms Musculoskeletal: Does not report joint pain and limited range of motion Neurologic: Denies seizure-like activity skin: No ulcer. No rash Endocrinology: Reports systems reviewed and no addt'l complaints, except as documented Hematologic/Lymphatic: Reports systems reviewed and no addt'l complaints, except as documented Rest 12 ROS are negative except as mentioned in HPI Vital Signs Vital Signs Vital Signs: 03/10/21 12:21 03/10/21 13:14 03/10/21 14:14 Temperature 97.2 F L 98.6 F 98.4 F Temperature Source Temporal Temporal Temporal Pulse Rate 90 94 96 Respiratory Rate 18 20 H 18 Blood Pressure 99/62 123/70 H 134/78 H Blood Pressure Mean 74 87 96 Pulse Ox 96 94 95 Oxygen Delivery Method Room Air Room Air Room Air 03/10/21 14:49 03/10/21 16:36 03/10/21 17:23 Temperature 99.4 F H 98 F Temperature Source Temporal Temporal Pulse Rate 104 H 96 96 Respiratory Rate 18 18 18 Blood Pressure 135/85 H 120/86 H 130/94 H Blood Pressure Mean 101 97 106 Pulse Ox 96 94 95 Oxygen Delivery Method Room Air Room Air Room Air Weight Weight: 180 lb Body Mass Index (BMI) 24.4 Physical Exam Narrative General: Alert, Oriented x3, Cooperative HEENT: Atraumatic, PERRLA, EOMI, Normocephalic Oral: No Gingival or Mucosal Lesions/ Ulcerations Neck: Supple, No JVD, Negative Carotid Bruits Lungs: Air entry diminished in bilateral lung bases. No crepitation/rhonchi Cardiovascular: Regular rate, Regular Rhythm, Normal S1, Normal S2, No murmurs Abdomen: Bowel Sounds Present, Soft, tenderness present predominantly in epiga stric right upper and left upper quadrant. No distention. : No renal angle tenderness. No suprapubic tenderness. Extremities: No edema, Capillary Refill Less than 3 Seconds Skin: No rashes, No breakdown Musculoskeletal: No Tenderness to Palpation of Joints or Extremities. No muscle tenderness Neurological: Cranial nerves II-XII grossly intact, DTR 2+/4 and Symmetrical, Neuro grossly intact Psych/Mental Status: Flat affect. Results Lab / Micro Data Result Diagrams: 03/10/21 12:53 03/10/21 12:53 Labs: Laboratory Results - last 24 hr 03/10/21 12:53: WBC 25.8 H, RBC 4.20 L, Hgb 10.7 L, Hct 34.3 L, MCV 81.7, MCH 25.5 L, MCHC 31.2 L, RDW Std Deviation 42.9, RDW Coeff of Yuki 14.5, Plt Count 463 H, MPV 8.6, Immature Gran % (Auto) 1.900 H, Neut % (Auto) 84.3 H, Lymph % (Auto) 4.5 L, [place] % (Auto) 3.8, Eos % (Auto) 5.3 H, Baso % (Auto) 0.2, Absolute Neuts (auto) 21.8 H, Absolute Lymphs (auto) 1.17, Nucleated RBC % 0 03/10/21 12:53: Sodium 134 L, Potassium 3.5, Chloride 101, Carbon Dioxide 28.0, Anion Gap 5, BUN 13, Creatinine 0.65 L, Estim Creat Clear Calc 142.60, Est GFR (MDRD) Af Amer 164, Est GFR (MDRD) Non-Af 135, BUN/Creatinine Ratio 19.9, Glucose 138 H, Calcium 9.5, Total Bilirubin 0.80, AST 32, ALT 69 H, Alkaline Phosphatase 117, Total Protein 7.8, Albumin 2.5 L, Globulin 5.3 H, Albumin/Globulin Ratio 0.5 L, Lipase 15540 H 03/10/21 15:15: Urine Color Yellow, Urine Clarity Clear, Urine pH 6.5, Ur Specific [place] 1.010, Urine Protein 30 H, Urine Glucose (UA) Normal, Urine Ketones Negative, Urine Occult Blood Negative, Urine Nitrite Negative, Urine Bilirubin Negative, Urine Urobilinogen Normal, Ur Leukocyte Esterase Negative, Urine RBC 0 SEEN, Urine WBC 0-5 SEEN, Ur Squamous Epith Cells 0 SEEN, Urine Bacteria 0 SEEN, Urine Mucus 0 SEEN Radiology Impression Abdomen/Pelvis CT 03/10/21 13:11 IMPRESSION: Findings in keeping with a mild degree of pancreatitis. Small gallstones are seen in the dependent portion of the gallbladder lumen. Small amount of fluid is seen in the cul-de-sac. Electronically Signed: Cole Mann MD at 14:58 EST , Service support , Gallbladder Ultrasound 03/10/21 15:12 IMPRESSION: 1. Several small gallstones 2. Mildly enlarged liver. Electronically Signed: Jethro Porter MD at 16:54 EST , Service support , Assessment & Plan Assessment/Plan (1) COVID-19: (2) Acute pancreatitis: QUALIFIERS: Acute pancreatitis complication: no infection or necrosis Pancreatitis type: biliary Qualified Code(s): K85.10 - Biliary acute pancreatitis without necrosis or infection PLAN: 1. Acute pancreatitis probably biliary pancreatitis: The patient is being admitted on [facility] floor. Discussed with the surgeon Dr. Andrews. CT abdomen and GB sonogram reviewed. It seems there is no features of acute cholecystitis as per ultrasound but several dependent gallstones. Started on IV fluid Ringer lactate 100 mill per hour for 2 L. BUN 13, creatinine 0.65. We will adopt a restricted IV fluid in view of Covid infection and left lung whiteout with history of left lung cancer, postobstructive pneumonia, atelectasis. 2. Stage IV NSCLC adenocarcinoma histology With postobstructive pneumonia:. Left lung NSCLC adenocarcinoma with wide metastasis to bones and adrenal gland. Chest x-ray shows left lung whiteout similar to previous chest x-ray. I reviewed previous office note of Dr. Nava. Brain MRI no acute finding. As per his documentation is stage IV (T4, N3, M1) metastatic left lung NSCLC adenocarcinoma histology. And that there is small left pleural effusion. PET scan shows viable skeletal metastatic disease and adrenal gland. Poor prognosis. Currently patient is following [facility] oncologist and as per patient he visited first time last week. Currently not on any therapeutic/palliative medication for cancer.Levaquin Home medication continued IV form. 3. Recent COVID-19 symptoms:It is hard to ascertain onset of symptoms of COVID- 19 as he was before having postobstructive pneumonia from lung cancer. Patient is started on dexamethasone 6 mg IV daily. He is not a candidate of remdesivir because of ongoing pancreatitis, lung cancer and uncertainty of time period of onset of symptoms. Continue incentive spirometry, Pep. Robitussin as needed for cough. 4 COPD: Patient had PFT done on 02/18/2021 which shows a reversible moderate large airway obstructive ventilatory defect with preserved lung volumes and mild reduction in diffusion capacity. Bronchodilator as needed. DVT prophylaxis: High risk. Lovenox [address] chest on last ED visit 03/07/2021 was negative for central or segmental PE but shows features of large left upper lobe mass with extension to mediastinum and left hilar yandel nopathy, left adrenal metastasis. Small left pleural effusion. Left lower lobe consolidation. Living will/advanced directive/end of life care: Patient does not have living will or advanced directive. After discussion of benefits/risks procedures involved with full code, DNR CC arrest and DNR CC, the patient, his and nurse that he could not clear. They want CPR but no intubation ventilator or shock. I gave them the option of either full code, DNR CC arrest with intubation or DNRCC arrest without intubation. The repeated CPR therefore full code. Patient doesn't want artificial life support including intubation, ventilator, central venous catheter, vasopressor and DC shock if needed Total time spent in [id number] encounter in discussion of advanced directive 16 minutes. Laboratory Results 03/10/21 12:53: WBC 25.8 H, RBC 4.20 L, Hgb 10.7 L, Hct 34.3 L, MCV 81.7, MCH 25.5 L, MCHC 31.2 L, RDW Std Deviation 42.9, RDW Coeff of [place] 14.5, Plt Count 463 H, MPV 8.6, Immature Gran % (Auto) 1.900 H, Neut % (Auto) 84.3 H, Lymph % (Auto) 4.5 L, [place] % (Auto) 3.8, Eos % (Auto) 5.3 H, Baso % (Auto) 0.2, Absolute Neuts (auto) 21.8 H, Absolute Lymphs (auto) 1.17, Nucleated RBC % 0 03/10/21 12:53: Sodium 134 L, Potassium 3.5, Chloride 101, Carbon Dioxide 28.0, Anion Gap 5, BUN 13, Creatinine 0.65 L, Estim Creat Clear Calc 142.60, Est GFR (MDRD) Af Amer 164, Est GFR (MDRD) Non-Af 135, BUN/Creatinine Ratio 19.9, Glucose 138 H, Calcium 9.5, Total Bilirubin 0.80, AST 32, ALT 69 H, Alkaline Phosphatase 117, Total Protein 7.8, Albumin 2.5 L, Globulin 5.3 H, Albumin/Globulin Ratio 0.5 L, Lipase 71561 H 03/10/21 15:15: Urine Color Yellow, Urine Clarity Clear, Urine pH 6.5, Ur Specific [place] 1.010, Urine Protein 30 H, Urine Glucose (UA) Normal, Urine Ketones Negative, Urine Occult Blood Negative, Urine Nitrite Negative, Urine Bilirubin Negative, Urine Urobilinogen Normal, Ur Leukocyte Esterase Negative, Urine RBC 0 SEEN, Urine WBC 0-5 SEEN, Ur Squamous Epith Cells 0 SEEN, Urine Bacteria 0 SEEN, Urine Mucus 0 SEEN 03/10/21 18:35: COVID-19 (ADDY) Pending Clinical Impression(s) from Imaging Studies Abdomen/Pelvis CT 03/10/21 13:11 IMPRESSION: Findings in keeping with a mild degree of pancreatitis. Small gallstones are seen in the dependent portion of the gallbladder lumen. Small amount of fluid is seen in the cul-de-sac. Gallbladder Ultrasound 03/10/21 15:12 IMPRESSION: 1. Several small gallstones 2. Mildly enlarged liver. Charges/Coding Visit Charges Inpatient E&M: 41404 Init Hosp L3 Procedures Hospitalists Procedures: 41933 Advncd Care Plan 30 Min
[2021-03-10] MEDS: HYDROmorphone 0.5 MG/0.5 ML SYRINGE IV (18:45)
[2021-03-10] MEDS: Acetaminophen 325 MG Tablet 650 MG PO (21:03)
[2021-03-10] MEDS: 0.9% Saline Lock 10 ML Syringe IV ×2 (21:06→22:39)
[2021-03-10 21:12] LABS: LDH 186 U/L (87-241)
[2021-03-10 21:22] LABS: Procalcitonin 0.26 ng/mL (0.00-0.09)
[2021-03-10 21:26] LABS: CPK Total, Creatine Kinase 22 U/L (39-308)
[2021-03-10] MEDS: Fluticasone 0.05% 1 SPRAY NASAL.SRY NASAL (22:34)
[2021-03-10] MEDS: Enoxaparin 30 MG/0.3 ML Syringe SC (22:34)
[2021-03-10] MEDS: dexAMETHasone 10 MG/ML Vial 6 MG IV (22:34)
[2021-03-10] MEDS: Contrast Allergy Safety Check IV (22:35)
--- NOTE | 2021-03-10 22:47 | PCS.PANDOC ---
PANDEMIC DOCUMENTATION INITIATED: Date: 03/10/21 Time: 1914
[2021-03-11] VITALS (10 sets, daily range): BP systolic 115–125; BP diastolic 71–75; PULSE 87–96; RESP 18; TEMP 36.2–36.9; O2SAT 89–95
[2021-03-11] MEDS: 0.9% Saline Lock 10 ML Syringe IV ×2 (00:07→21:59)
[2021-03-11] MEDS: Morphine 4 MG/ML Syringe IV ×4 (00:07→21:57)
[2021-03-11] MEDS: 0.9% Normal Saline 1,000 ML 150 ML IV ×2 (00:22→06:44)
[2021-03-11 07:08] LABS: Absolute Neutrophil Count 28.2 X10^3/uL (2.0-7.7); Basophil# 0.05 X10^3/uL; Basophil% 0.2 % (0-1); Eosinophil# 0.14 X10^3/uL; Eosinophils% 0.4 % (0-5); Hematocrit 31.5 % (40-54); Hemoglobin 9.8 g/dL (13.0-16.5); Lymphocyte % 4.1 % (19-41); Mean Corp Hgb Conc 31.1 g/dL (32-36); Mean Corpuscular Hgb 25.4 pg (27.0-32.0); Mean Corpuscular Volume 81.6 fL (80-94); Mean Platelet Vol. 8.5 fl (6.2-12.0); Monocyte% 3.5 % (0-10); NRBC Flagged by Analyzer 0 % (0-5); Neutrophil # 28.23 X10^3/uL (2.7-7.7); Neutrophil % 89.5 % (47-70); POSITIVE COUNT YES; POSITIVE DIFFERENTIAL YES; Platelet Count 390 K/mm3 (150-450); RBC Distribution Width CV 14.5 % (11.6-14.6); RBC Distribution Width SD 42.2 fl (35.1-43.9); Red Blood Count 3.86 M/mm3 (4.6-6.2); White Blood Count 31.5 K/mm3 (4.4-11.0)
[2021-03-11 07:10] LABS: Differential Indicated SCAN CRITERIA MET
[2021-03-11 07:35] LABS: ALB/GLOB Ratio 0.4 RATIO (0.9-2.4); AST(SGOT) 20 U/L (15-37); Alanine Aminotransfer ALT/SGPT 47 U/L (16-61); Albumin, Serum 2.1 g/dL (3.2-5.0); Alkaline Phosphatase 91 U/L (45-117); Anion Gap 7 (5-15); BUN 11 mg/dL (7-18); BUN/Creat Ratio 25.4 RATIO (10-20); Calcium,Total 8.6 mg/dL (8.5-10.1); Chloride 103 mmol/L (98-107); Creatinine, Serum 0.43 mg/dL (0.70-1.30); EST Glomerular Filtration Rate 217 mL/min (>60); Est Glom Filt Rate - Afr Amer 262 mL/min (>60); Estimated Creatinine Clearance 215.56 ml/min; Globulin 4.7 g/dL (2.2-4.2); Glucose 112 mg/dL (74-106); Protein, Total 6.8 g/dL (6.4-8.2); Sodium Level 134 mmol/L (136-145)
--- NOTE | 2021-03-11 08:43 | CON.PCM.SX_ITS ---
Assessment & Plan Assessment/Plan (1) Acute pancreatitis: QUALIFIERS: Acute pancreatitis complication: no infection or necrosis Pancreatitis type: biliary Qualified Code(s): K85.10 - Biliary acute pancreatitis without necrosis or infection (2) COVID-19: (3) Metastatic primary lung cancer: PLAN: Did review patient's CT as well as ultrasound. Patient does have gallstones in the gallbladder however otherwise his gallbladder does not appear to be inflamed with a normal wall. Also due to patient's recent diagnosis of Covid in addition to his primary lung cancer/Pneumonia he would be at very high risk for any surgical intervention/General anesthesia involving a cholecystectomy at this time. Due to the gallbladder not being inflamed would not think patient would necessarily have to have a cholecystostomy tube at this time and there is also question whether ivermectin could have contributed to pancreatitis as well.This was all discussed with the patient and his over the phone, Did also state that typically for gallstone pancreatitis the gallbladder was removed at admission however his respiratory risk I believe would mitigate the benefit at this time. Patient was not interested in getting a cholecystostomy tube as the gallbladder is not inflamed currently and knew who would need to deal with that daily.Did recommend patient stay on a low-fat diet and avoid any fatty or greasy foods After discharge? as those could potentially cause more issues with the gallbladder.Also encourage patient to stop the ivermectin. Patient pain is minimal difficult to appreciate on exam rates it at 3/10. Primary starting clears.Dr. Quinones will be covering over the weekend if there is any concerns. Mimi Andrews M.D. Pager: [phone] [facility] [address] [place] [address], [address] [place] [address] Office: [phone] HPI Consult Data Date of Consult: 03/11/21 HPI Narrative HPI Narrative: MARIKA SCALES, is a 55 M who presented to the ER due to diffuse abdominal pain. Patient was recently diagnosed with Covid on 03/07. Patient has been taking ivermectin since then. He did ask about this at the ER which was told per the note that this is not an approved treatment and with the would not be writing for this medication. Patient represented 03/10 due to diffuse abdominal pain. Patient was found to have a lipase of 16K now abt 3K. CT abdomen pelvis did show evidence of pancreatitis, gallstones seen in the gallbladder. Patient's ultrasound showed normal gallbladder wall, no pericholecystic fluid, cholelithiasis, normal common bile duct. Patient also has a past medical history for recent diagnosis of metastatic left lung cancer to the bone and adrenal.Patient's white blood count is 31 this morning from 25 however patient is on Decadron currently. And is also being treated with Zosyn due to his pneumonia due to lung cancer. Patient states abdominal pain has improved. Patient also notes having some diarrhea prior to coming in.Patient is currently awaiting blood work from [facility] for his lung cancer for treatment. 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 Shortness of breath on exertion Home Medications benzonatate 100 mg capsule 100 mg PO BID-TID PRN 03/03/21 [History Last Taken 03/09/21] levofloxacin 500 mg tablet 500 mg PO DAILY 03/03/21 [History Last Taken 03/09/21] ondansetron HCl 4 mg tablet 4 mg PO Q8H 03/03/21 [History Last Taken Unknown] dexamethasone [Decadron] 6 mg PO DAILY #9 tab 03/07/21 [Rx Last Taken 03/09/21] fluticasone propionate [Flonase] 1 spray INTRANASAL BID 03/10/21 [History Last Taken 03/09/21] omeprazole [Prilosec] 40 mg PO DAILY 03/10/21 [History Last Taken 03/09/21] Allergy/AdvReac Type Severity Reaction Status Date / Time No Known Allergies Allergy Verified 03/10/21 13:18 Family History Mother Diabetes Surgical History History of lung biopsy Social History household members: spouse Smoking Status: Former smoker quit date: 03/26/79 pack-years: 2 Tobacco: How many years used: 2 second hand exposure: No details: occasionally substance use type: does not use radha/mormon: Sabianist seatbelt use: always do you feel safe at home: Yes ROS Constitutional Constitutional: Reports fatigue and weakness ENT HEENT: Denies dizziness Cardiovascular Cardiovascular: Denies chest pain Respiratory/Chest Respiratory/Chest: Reports shortness of breath with exertion Gastrointestinal Gastrointestinal: Reports abdominal pain and diarrhea; Denies constipation, heartburn, hematemesis or melena Genitourinary Genitourinary: Denies burning urination Musculoskeletal Musculoskeletal: Denies joint pain Integumentary Integumentary: Denies rash Neurologic Neurologic: Denies focal weakness Endocrine Endocrinology: Denies palpitations Hematologic/Lymphatic Hematologic/Lymphatic: Denies easy bleeding or easy bruising Physical Exam Const alert, oriented x3 and no apparent distress HEENT normocephalic and head/scalp atraumatic Resp normal respiratory effort Cardio regular rate GI soft to palpation; Negative for non-distended Palpation: tender epigastric (Minimal); Negative for guarding Extremity no clubbing, cyanosis or edema General Extremity: Negative for edema Skin No no rashes or lesions noted Neuro CN's II-XII intact bilaterally Psych mental status grossly normal Lab / Micro Data Result Diagrams: 03/11/21 06:42 03/11/21 06:42 Labs: Laboratory Results - last 24 hr 03/10/21 12:53: WBC 25.8 H, RBC 4.20 L, Hgb 10.7 L, Hct 34.3 L, MCV 81.7, MCH 25.5 L, MCHC 31.2 L, RDW Std Deviation 42.9, RDW Coeff of Yuki 14.5, Plt Count 463 H, MPV 8.6, Immature Gran % (Auto) 1.900 H, Neut % (Auto) 84.3 H, Lymph % (Auto) 4.5 L, [place] % (Auto) 3.8, Eos % (Auto) 5.3 H, Baso % (Auto) 0.2, Absolute Neuts (auto) 21.8 H, Absolute Lymphs (auto) 1.17, Nucleated RBC % 0 03/10/21 12:53: Sodium 134 L, Potassium 3.5, Chloride 101, Carbon Dioxide 28.0, Anion Gap 5, BUN 13, Creatinine 0.65 L, Estim Creat Clear Calc 142.60, Est GFR (MDRD) Af Amer 164, Est GFR (MDRD) Non-Af 135, BUN/Creatinine Ratio 19.9, Glucose 138 H, Calcium 9.5, Total Bilirubin 0.80, AST 32, ALT 69 H, Alkaline Phosphatase 117, Total Protein 7.8, Albumin 2.5 L, Globulin 5.3 H, A lbumin/Globulin Ratio 0.5 L, Lipase 31388 H 03/10/21 12:53: Total Creatine Kinase 22 L 03/10/21 12:53: Lactate Dehydrogenase 186, C-React Prot Ext Range 117.00 H 03/10/21 12:53: Procalcitonin 0.26 H 03/10/21 15:15: Urine Color Yellow, Urine Clarity Clear, Urine pH 6.5, Ur Specific [place] 1.010, Urine Protein 30 H, Urine Glucose (UA) Normal, Urine Ketones Negative, Urine Occult Blood Negative, Urine Nitrite Negative, Urine Bilirubin Negative, Urine Urobilinogen Normal, Ur Leukocyte Esterase Negative, Urine RBC 0 SEEN, Urine WBC 0-5 SEEN, Ur Squamous Epith Cells 0 SEEN, Urine Bacteria 0 SEEN, Urine Mucus 0 SEEN 03/10/21 18:35: COVID-19 (ADDY) Detected 03/11/21 06:42: WBC 31.5 H*, RBC 3.86 L, Hgb 9.8 L, Hct 31.5 L, MCV 81.6, MCH 25.4 L, MCHC 31.1 L, RDW Std Deviation 42.2, RDW Coeff of Yuki 14.5, Plt Count 390, MPV 8.5, Immature Gran % (Auto) 2.300 H, Neut % (Auto) 89.5 H, Lymph % (Auto) 4.1 L, [place] % (Auto) 3.5, Eos % (Auto) 0.4, Baso % (Auto) 0.2, Absolute Neuts (auto) 28.2 H, Absolute Lymphs (auto) 1.30, Nucleated RBC % 0, Diff Path Review July03/11/21 06:42: Sodium 134 L, Potassium 4.0, Chloride 103, Carbon Dioxide 24.0, Anion Gap 7, BUN 11, Creatinine 0.43 L, Estim Creat Clear Calc 215.56, Est GFR (MDRD) Af Amer 262, Est GFR (MDRD) Non-Af 217, BUN/Creatinine Ratio 25.4 H, Glu cose 112 H, Calcium 8.6, Total Bilirubin 0.60, AST 20, ALT 47, Alkaline Phosphatase 91, Total Protein 6.8, Albumin 2.1 L, Globulin 4.7 H, Albumin/Globulin Ratio 0.4 L Radiology Impression Abdomen/Pelvis CT 03/10/21 13:11 IMPRESSION: Findings in keeping with a mild degree of pancreatitis. Small gallstones are seen in the dependent portion of the gallbladder lumen. Small amount of fluid is seen in the cul-de-sac. Electronically Signed: Cole Mann MD at 14:58 EST , Service support , Gallbladder Ultrasound 03/10/21 15:12 IMPRESSION: 1. Several small gallstones 2. Mildly enlarged liver. Electronically Signed: Jethro Porter MD at 16:54 EST , Service support , Chest X-Ray 03/10/21 17:17 IMPRESSION: Unchanged near whiteout of the left lung likely due to a combination of known left upper lobe lung mass with atelectasis versus pneumonia. Improved small left pleural effusion. Electronically Signed: Tutu Drake MD at 20:10 EST Tel , Service support , Charges/Coding Visit Charges Inpatient E&M: 73567 Init Hosp L3
[2021-03-11 09:40] LABS: Lipase 2930 U/L (73-393)
[2021-03-11] MEDS: Piperacil/Tazobactam 3.375 GM/50 ML ML IV ×3 (10:29→22:00)
[2021-03-11] MEDS: Enoxaparin 30 MG/0.3 ML Syringe SC ×2 (10:32→22:00)
[2021-03-11] MEDS: dexAMETHasone 10 MG/ML Vial 6 MG IV (10:32)
[2021-03-11] MEDS: Fluticasone 0.05% 1 SPRAY NASAL.SRY NASAL ×2 (10:33→22:03)
--- NOTE | 2021-03-11 13:25 | PCM.PN.HOSP ---
Subjective Subjective Patient abdominal pain is much improved states 2/10 pain in the epigastric region. Objective Data Objective Data Vital Signs: Vital Signs Temp Pulse Resp BP Pulse Ox 97.9 F 88 18 119/75 92 03/11/21 09:00 03/11/21 09:00 03/11/21 09:00 03/11/21 09:00 03/11/21 09:48 Oxygen Flow Rate (L/min) 3 Oxygen Delivery Method Nasal Cannula Weight: 178 lb 12.718 oz Body Mass Index (BMI) 24.5 Intake & Output: Intake and Output for Last 24 Hours 03/09/21 03/10/21 03/11/21 23:59 23:59 23:59 Intake Total 1000 / 1000 1555 / 1555 Output Total 700 / 700 Balance 1000 / 1000 855 / 855 Lab / Micro Data Result Diagrams: 03/11/21 06:42 03/11/21 06:42 Labs: Laboratory Results - last 24 hr 03/10/21 12:53: WBC 25.8 H, RBC 4.20 L, Hgb 10.7 L, Hct 34.3 L, MCV 81.7, MCH 25.5 L, MCHC 31.2 L, RDW Std Deviation 42.9, RDW Coeff of Yuki 14.5, Plt Count 463 H, MPV 8.6, Immature Gran % (Auto) 1.900 H, Neut % (Auto) 84.3 H, Lymph % (Auto) 4.5 L, [place] % (Auto) 3.8, Eos % (Auto) 5.3 H, Baso % (Auto) 0.2, Absolute Neuts (auto) 21.8 H, Absolute Lymphs (auto) 1.17, Nucleated RBC % 0 03/10/21 12:53: Sodium 134 L, Potassium 3.5, Chloride 101, Carbon Dioxide 28.0, Anion Gap 5, BUN 13, Creatinine 0.65 L, Estim Creat Clear Calc 142.60, Est GFR (MDRD) Af Amer 164, Est GFR (MDRD) Non-Af 135, BUN/Creatinine Ratio 19.9, Glucose 138 H, Calcium 9.5, Total Bilirubin 0.80, AST 32, ALT 69 H, Alkaline Phosphatase 117, Total Protein 7.8, Albumin 2.5 L, Globulin 5.3 H, Albumin/Globulin Ratio 0.5 L, Lipase 40863 H 03/10/21 12:53: Total Creatine Kinase 22 L 03/10/21 12:53: Lactate Dehydrogenase 186, C-React Prot Ext Range 117.00 H 03/10/21 12:53: Procalcitonin 0.26 H 03/10/21 15:15: Urine Color Yellow, Urine Clarity Clear, Urine pH 6.5, Ur Specific [place] 1.010, Urine Protein 30 H, Urine Glucose (UA) Normal, Urine Ketones Negative, Urine Occult Blood Negative, Urine Nitrite Negative, Urine Bilirubin Negative, Urine Urobilinogen Normal, Ur Leukocyte Esterase Negative, Urine RBC 0 SEEN, Urine WBC 0-5 SEEN, Ur Squamous Epith Cells 0 SEEN, Urine Bacteria 0 SEEN, Urine Mucus 0 SEEN 03/10/21 18:35: COVID-19 (ADDY) Detected 03/11/21 06:42: WBC 31.5 H*, RBC 3.86 L, Hgb 9.8 L, Hct 31.5 L, MCV 81.6, MCH 25.4 L, MCHC 31.1 L, RDW Std Deviation 42.2, RDW Coeff of Yuki 14.5, Plt Count 390, MPV 8.5, Immature Gran % (Auto) 2.300 H, Neut % (Auto) 89.5 H, Lymph % (Auto) 4.1 L, [place] % (Auto) 3.5, Eos % (Auto) 0.4, Baso % (Auto) 0.2, Absolute Neuts (auto) 28.2 H, Absolute Lymphs (auto) 1.30, Nucleated RBC % 0, Diff Path Review July03/11/21 06:42: Sodium 134 L, Potassium 4.0, Chloride 103, Carbon Dioxide 24.0, Anion Gap 7, BUN 11, Creatinine 0.43 L, Estim Creat Clear Calc 215.56, Est GFR (MDRD) Af Amer 262, Est GFR (MDRD) Non-Af 217, BUN/Creatinine Ratio 25.4 H, Glucose 112 H, Calcium 8.6, Total Bilirubin 0.60, AST 20, ALT 47, Alkaline Phosphatase 91, Total Protein 6.8, Albumin 2.1 L, Globulin 4.7 H, Albumin/Globulin Ratio 0.4 L 03/11/21 06:42: Lipase 2930 H Micro: Microbiology 03/11/21 10:30 Urine, Clean Catch Legionella Antigen - Final 03/11/21 10:30 Urine, Random Streptococcus pneumoniae Antigen (M - Final Radiography Diagnostic Testing: Radiology Impression Abdomen/Pelvis CT 03/10/21 13:11 IMPRESSION: Findings in keeping with a mild degree of pancreatitis. Small gallstones are seen in the dependent portion of the gallbladder lumen. Small amount of fluid is seen in the cul-de-sac. Gallbladder Ultrasound 03/10/21 15:12 IMPRESSION: 1. Several small gallstones 2. Mildly enlarged liver. Chest X-Ray 03/10/21 17:17 IMPRESSION: Unchanged near whiteout of the left lung likely due to a combination of known left upper lobe lung mass with atelectasis versus pneumonia. Improved small left pleural effusion. Physical Exam Narrative General: Alert, Oriented x3, Cooperative HEENT: Atraumatic, PERRLA, EOMI, Normocephalic Oral: No Gingival or Mucosal Lesions/ Ulcerations Neck: Supple, No JVD, Negative Carotid Bruits Lungs: Air entry absent in left lung. Right lung no crepitation or rhonchi. 92% on 3 L of oxygen. Cardiovascular: Regular rate, Regular Rhythm, Normal S1, Normal S2, No murmurs Abdomen: Bowel Sounds Present, Soft, no right subcostal tenderness. Mild deep epigastric tenderness. No distention. : No renal angle tenderness. No suprapubic tenderness. Extremities: No edema, Capillary Refill Less than 3 Seconds Skin: No rashes, No breakdown Musculoskeletal: No Tenderness to Palpation of Joints or Extremities. No muscle tenderness Neurological: Cranial nerves II-XII grossly intact, DTR 2+/4 and Symmetrical, Neuro grossly intact Psych/Mental Status: Flat affect. Assessment & Plan Assessment/Plan (1) COVID-19: (2) Acute pancreatitis: QUALIFIERS: Pancreatitis type: biliary Acute pancreatitis complication: no infection or necrosis Qualified Code(s): K85.10 - Biliary acute pancreatitis without necrosis or infection PLAN: 1. Acute pancreatitis probably biliary pancreatitis: The patient is being admitted on [facility] floor. Discussed with the surgeon Dr. Andrews. CT abdomen and GB sonogram reviewed. It seems there is no features of acute cholecystitis as per ultrasound but several dependent gallstones. Started on IV fluid Ringer lactate 100 mill per hour for 2 L. BUN 13, creatinine 0.65. 03/11: IV fluids decreased to 75 mill per hour for 500 ml and then stop. Started on clear liquid diet. Restricted IV fluid approach in view of Covid infection and left lung whiteout with left lung history, postobstructive pneumonia, atelectasis possible effusion. Discussed with the surgeon. No features of acute cholecystitis therefore advised outpatient follow-up after Covid isolation. 2. Stage IV NSCLC adenocarcinoma histology With postobstructive pneumonia:. Left lung NSCLC adenocarcinoma with wide metastasis to bones and adrenal gland. Chest x-ray shows left lung whiteout similar to previous chest x-ray. I reviewed previous office note of Dr. Nava. Brain MRI no acute finding. As per his documentation is stage IV (T4, N3, M1) metastatic left lung NSCLC adenocarcinoma histology. And that there is small left pleural effusion. PET scan shows viable skeletal metastatic disease and adrenal gland. Poor prognosis. Currently patient is following [facility] oncologist and as per patient he visited first time last week. Currently not on any therapeutic/palliative medication for cancer. 3. Recent COVID-19 symptoms with recent postobstructive pneumonia, high possibility of bacterial superinfection:It is hard to ascertain onset of symptoms of COVID-19 as he was before having postobstructive pneumonia from lung cancer. Patient is started on dexamethasone 6 mg IV daily. He is not a candidate of remdesivir because of ongoing pancreatitis, lung cancer and uncertainty of time period of onset of symptoms. Continue incentive spirometry, Pep. Robitussin as needed for cough. 03/11: Patient had fever temperature 101.5 ?F. DC Levaquin and start Zosyn. WBC count high, immature granulocytes 2.3 thousand. Possible complicated with cancer history and pneumonia. Blood cultures x2 ordered. Respiratory panel ordered. Urinary antigens are negative. Procalcitonin 0.26, less than 0.5 mentions no_progression to severe sepsis or septic shock. CRP elevated. LDH and CK normal 4 COPD: Patient had PFT done on 02/18/2021 which shows a reversible moderate large airway obstructive ventilatory defect with preserved lung volumes and mild reduction in diffusion capacity. Bronchodilator as needed. DVT prophylaxis: High risk. Lovenox 30 mils subcu twice daily. Recent CT chest on last ED visit 03/07/2021 was negative for central or segmental PE but shows features of large left upper lobe mass with extension to mediastinum and left hilar adenopathy, left adrenal metastasis. Small left pleural effusion. Left lower lobe consolidation. Living will/advanced directive/end of life care: Patient does not have living will or advanced directive. After discussion of benefits/risks procedures involved with full code, DNR CC arrest and DNR CC, the patient, his and nurse that he could not clear. They want CPR but no intubation ventilator or shock. I gave them the option of either full code, DNR CC arrest with intubation or DNRCC arrest without intubation. The repeated CPR therefore full code. Patient doesn't want artificial life support including intubation, ventilator, central venous catheter, vasopressor and DC shock if needed Total time spent in [id number] encounter in discussion of advanced directive 16 minutes. Microbiology Past 72 Hours 03/11/21 10:30 Urine, Clean Catch Legionella Antigen - Final 03/11/21 10:30 Urine, Random Streptococcus pneumoniae Antigen (M - Final Laboratory Results 03/10/21 18:35: COVID-19 (ADDY) Detected 03/11/21 06:42: WBC 31.5 H*, RBC 3.86 L, Hgb 9.8 L, Hct 31.5 L, MCV 81.6, MCH 25.4 L, MCHC 31.1 L, RDW Std Deviation 42.2, RDW Coeff of Yuki 14.5, Plt Count 390, MPV 8.5, Immature Gran % (Auto) 2.300 H, Neut % (Auto) 89.5 H, Lymph % (Auto) 4.1 L, [place] % (Auto) 3.5, Eos % (Auto) 0.4, Baso % (Auto) 0.2, Absolute Neuts (auto) 28.2 H, Absolute Lymphs (auto) 1.30, Nucleated RBC % 0, Diff Path Review July03/11/21 06:42: Sodium 134 L, Potassium 4.0, Chloride 103, Carbon Dioxide 24.0, Anion Gap 7, BUN 11, Creatinine 0.43 L, Estim Creat Clear Calc 215.56, Est GFR (MDRD) Af Amer 262, Est GFR (MDRD) Non-Af 217, BUN/Creatinine Ratio 25.4 H, Glucose 112 H, Calcium 8.6, Total Bilirubin 0.60, AST 20, ALT 47, Alkaline Phosphatase 91, Total Protein 6.8, Albumin 2.1 L, Globulin 4.7 H, Albumin/Globulin Ratio 0.4 L 03/11/21 06:42: Lipase 2930 H Clinical Impression(s) from Imaging Studies Abdomen/Pelvis CT 03/10/21 13:11 IMPRESSION: Findings in keeping with a mild degree of pancreatitis. Small gallstones are seen in the dependent portion of the gallbladder lumen. Small amount of fluid is seen in the cul-de-sac. Gallbladder Ultrasound 03/10/21 15:12 IMPRESSION: 1. Several small gallstones 2. Mildly enlarged liver. Charges/Coding Visit Charges Inpatient E&M: 85506 Subs Hosp L2
--- NOTE | 2021-03-11 14:45 | CASEMGMT ---
NAINA SUTTON Assessment: Face to Face with pt for initial transition planning/care coordination assessment. RN LESLEY introduced self and role at [facility], pt voices understanding and consents to assessment. Patient sitting in chair with O2 on, in no apparent distress. Pt is A/O x4 and answers all questions appropriately at this time. Care providers, pharmacy, and demographics verified/updated. Admitting Dx: Pancreatitis, COVID PCP: Saulo Patterson Specialists: Masci- onc, Patient reports he also sought second opinion re: cancer diagnosis at [facility] but unsure of name of physician. Preferred Pharmacy: [facility] retail while inpatient Insurance: [facility] MMO Prescription Benefit: yes LW/HPOA: Pt reports he does have a LW and that his , Kayley Parisi, is his DPOA. Patient is aware LW/POA are not on file at [facility] and may be brought in to hospital to be scanned into file. LNOK: , Kayley Parisi Living Arrangements: Pt lives with and daughter in 3 story house with 2 stairs to enter, no handrail. Patient reports he is independent with ADLs. Transportation: Pt drives self and denies concerns with transportation. DME/HHC/SNF: Patient denies having any DME in home. Patient reports he has a director style (Gillian Portillo) he can sometimes call on. Denies previous SNF stays. Patient denies preference of DME companies if he were to need oxygen at discharge. Social: Patient reports he is a former smoker, quit 32 years ago. Reports rarely drinks alcohol. Denies drug use. Patient was first tested positive for COVID at [facility]. No other household contacts are ill with COVID. Patient reports he is able to quarantine from and daughter and states or daughter may bring groceries and medications to home. Pt states no concerns with going home at time of dc. Patient reports he plans to soon (end of February 2021) travel to [place], [place] for alternative cancer treatment. Pt states no further concerns/needs. CM to follow. Advised pt to ask CM if any further question/concerns/needs arise, voices understanding. Pt Goal: home with plans to soon travel to [place], [place] with for alternative cancer treatment Plan: home
[2021-03-11 17:11] LABS: M R Staph aureus DNA By PCR Negative (Negative); Probe Check PASS; Specimen Processing Control PASS
[2021-03-12] VITALS (10 sets, daily range): BP systolic 119–136; BP diastolic 67–83; PULSE 88–103; RESP 16–20; TEMP 36.2–37.8; O2SAT 89–94
[2021-03-12] MEDS: Morphine 4 MG/ML Syringe IV ×3 (01:03→07:43)
[2021-03-12] MEDS: 0.9% Saline Lock 10 ML Syringe IV ×5 (01:05→23:37)
[2021-03-12] MEDS: Piperacil/Tazobactam 3.375 GM/50 ML ML IV ×3 (05:51→21:52)
[2021-03-12] MEDS: dexAMETHasone 10 MG/ML Vial 6 MG IV (07:46)
[2021-03-12] MEDS: Fluticasone 0.05% 1 SPRAY NASAL.SRY NASAL (07:49)
[2021-03-12] MEDS: Enoxaparin 30 MG/0.3 ML Syringe SC ×2 (07:52→21:46)
[2021-03-12] MEDS: Acetaminophen 325 MG Tablet 650 MG PO ×2 (07:58→22:53)
[2021-03-12 08:59] LABS: Absolute Lymphocyte Count 1.08 X10^3/uL (0.83-4.51); Absolute Neutrophil Count 30.1 X10^3/uL (2.0-7.7); Basophil# 0.07 X10^3/uL; Basophil% 0.2 % (0-1); Eosinophil# 1.08 X10^3/uL; Eosinophils% 3.2 % (0-5); Hematocrit 32.3 % (40-54); Hemoglobin 10.1 g/dL (13.0-16.5); Lymphocyte # 1.08 X10^3/ul (0.83-4.51); Lymphocyte % 3.2 % (19-41); Mean Corp Hgb Conc 31.3 g/dL (32-36); Mean Corpuscular Hgb 24.9 pg (27.0-32.0); Mean Corpuscular Volume 79.6 fL (80-94); Mean Platelet Vol. 8.5 fl (6.2-12.0); Monocyte# 1.33 X10^3/uL; Monocyte% 3.9 % (0-10); NRBC Flagged by Analyzer 0 % (0-5); Neutrophil # 30.12 X10^3/uL (2.7-7.7); Neutrophil % 87.9 % (47-70); POSITIVE COUNT YES; POSITIVE DIFFERENTIAL YES; Platelet Count 370 K/mm3 (150-450); RBC Distribution Width CV 14.5 % (11.6-14.6); RBC Distribution Width SD 42.1 fl (35.1-43.9); Red Blood Count 4.06 M/mm3 (4.6-6.2); White Blood Count 34.2 K/mm3 (4.4-11.0)
[2021-03-12 09:01] LABS: Differential Indicated SCAN CRITERIA MET
[2021-03-12 09:16] LABS: ALB/GLOB Ratio 0.4 RATIO (0.9-2.4); AST(SGOT) 24 U/L (15-37); Alanine Aminotransfer ALT/SGPT 46 U/L (16-61); Albumin, Serum 2.1 g/dL (3.2-5.0); Alkaline Phosphatase 115 U/L (45-117); Anion Gap 8 (5-15); BUN 14 mg/dL (7-18); BUN/Creat Ratio 25.7 RATIO (10-20); Calcium,Total 8.8 mg/dL (8.5-10.1); Chloride 101 mmol/L (98-107); Creatinine, Serum 0.54 mg/dL (0.70-1.30); EST Glomerular Filtration Rate 167 mL/min (>60); Est Glom Filt Rate - Afr Amer 202 mL/min (>60); Estimated Creatinine Clearance 171.65 ml/min; Globulin 4.8 g/dL (2.2-4.2); Glucose 121 mg/dL (74-106); Potassium 3.6 mmol/L (3.5-5.1); Protein, Total 6.9 g/dL (6.4-8.2); Sodium Level 133 mmol/L (136-145)
[2021-03-12] MEDS: HYDROmorphone 0.5 MG/0.5 ML SYRINGE IV ×4 (11:25→23:39)
[2021-03-12] MEDS: Lactated Ringers 1,000 ML 100 ML IV (11:59)
--- NOTE | 2021-03-12 15:04 | PN.HOSP_ITS ---
Objective Data Objective Data Vital Signs: Vital Signs Temp Pulse Resp BP Pulse Ox 97.1 F L 95 16 120/67 93 03/12/21 13:16 03/12/21 13:16 03/12/21 13:16 03/12/21 13:16 03/12/21 13:16 Oxygen Flow Rate (L/min) 2 Oxygen Delivery Method Nasal Cannula Weight: 178 lb 2.136 oz Body Mass Index (BMI) 24.5 Intake & Output: Intake and Output for Last 24 Hours 03/10/21 03/11/21 03/12/21 23:59 23:59 23:59 Intake Total 1000 / 1000 2054 561.67 / 561.67 Output Total 1850 / 1850 900 / 900 Balance 1000 / 1000 -338.33 / -338.33 Medical Nutrition Assessment Dietitian: Malnutrition Criteria Met Start: 03/11/21 15:19 Freq: Status: Active Protocol: Document 03/11/21 15:20 RMA (Rec: 03/11/21 15:20 RMA [id number]) Nutrition Malnutrition Evidence of Malnutrition Exists Yes Malnutrition (severe): Acute Illness/Injury,Chronic Evidenced By Suboptimal Energy Intake ( Severe),Weight Loss (Severe) Clinical Problem Chronic Disease or Condition Related Malnutrition Etiology Severe protein/calorie malnutrition in the context of acute on chronic disease related to inadequate oral intake Signs/Symptoms as evidenced by 6% wt loss x 1 month and PO meeting less than 50-75% estimated nutrition needs Status Active Problem Recommendation Dietitian Recommendations/Changes Recommend advance diet as tolerated to Fat-Restricted. Will add 240ml ensure clear TID w/ meals. Lab / Micro Data Result Diagrams: 03/12/21 08:51 03/12/21 08:51 Labs: Laboratory Results - last 24 hr 03/11/21 15:15: MRSA (PCR) Negative 03/12/21 08:51: WBC 34.2 H*, RBC 4.06 L, Hgb 10.1 L, Hct 32.3 L, MCV 79.6 L, MCH 24.9 L, MCHC 31.3 L, RDW Std Deviation 42.1, RDW Coeff of Yuki 14.5, Plt Count 370, MPV 8.5, Immature Gran % (Auto) 1.600 H, Neut % (Auto) 87.9 H, Lymph % (Auto) 3.2 L, [place] % (Auto) 3.9, Eos % (Auto) 3.2, Baso % (Auto) 0.2, Absolute Neuts (auto) 30.1 H, Absolute Lymphs (auto) 1.08, Nucleated RBC % 0, Diff Path Review July03/12/21 08:51: Sodium 133 L, Potassium 3.6, Chloride 101, Carbon Dioxide 24.0, Anion Gap 8, BUN 14, Creatinine 0.54 L, Estim Creat Clear Calc 171.65, Est GFR (MDRD) Af Amer 202, Est GFR (MDRD) Non-Af 167, BUN/Creatinine Ratio 25.7 H, Gluc ose 121 H, Calcium 8.8, Total Bilirubin 1.40 H, AST 24, ALT 46, Alkaline Phosphatase 115, Total Protein 6.9, Albumin 2.1 L, Globulin 4.8 H, Albumin/Globulin Ratio 0.4 L Micro: Microbiology 03/11/21 10:40 Mucosa - Nasopharyngeal Respiratory Panel (PCR) - Final 03/11/21 10:30 Urine, Clean Catch Legionella Antigen - Final 03/11/21 10:30 Urine, Random Streptococcus pneumoniae Antigen (M - Final Physical Exam Narrative Seen and examined. Patient started having severe abdominal pain on a starting clear liquid diet therefore was made n.p.o. yesterday. IV fluid to continue. General: Alert, Oriented x3, Cooperative HEENT: Atraumatic, PERRLA, EOMI, Normocephalic Oral: No Gingival or Mucosal Lesions/ Ulcerations Neck: Supple, No JVD, Negative Carotid Bruits Lungs: Air entry absent in left lung. Right lung no crepitation or rhonchi. 92% on 2 L of oxygen. Cardiovascular: Regular rate, Regular Rhythm, Normal S1, Normal S2, No murmurs Abdomen: Bowel Sounds Present, Soft, mild tenderness present over epigastric region. No distention. : No renal angle tenderness. No suprapubic tenderness. Extremities: No edema, Capillary Refill Less than 3 Seconds Skin: No rashes, No breakdown Musculoskeletal: No Tenderness to Palpation of Joints or Extremities. No muscle tenderness Neurological: Cranial nerves II-XII grossly intact, DTR 2+/4 and Symmetrical, Neuro grossly intact Psych/Mental Status: Flat affect. Assessment & Plan Assessment/Plan (1) COVID-19: (2) Acute pancreatitis: QUALIFIERS: Pancreatitis type: biliary Acute pancreatitis complication: no infection or necrosis Qualified Code(s): K85.10 - Biliary acute pancreatitis without necrosis or infection PLAN: 1. Acute pancreatitis probably biliary pancreatitis: [facility] Discussed with the surgeon Dr. Andrews. CT abdomen and GB sonogram reviewed. It seems there is no features of acute cholecystitis as per ultrasound but several dependent gallstones. Started on IV fluid Ringer lactate 100 mill per hour for 2 L. BUN 13, creatinine 0.65. 03/11: IV fluids decreased to 75 mill per hour for 500 ml and then stop. Start ed on clear liquid diet. Restricted IV fluid approach in view of Covid infection and left lung whiteout with left lung history, postobstructive pneumonia, atelectasis possible effusion. Discussed with the surgeon. No features of acute cholecystitis therefore advised outpatient follow-up after Cov id isolation. 03/11: Continue IV fluid. Keep n.p.o. until abdominal pain subsides. 2. Stage IV NSCLC adenocarcinoma histology With postobstructive pneumonia:. Left lung NSCLC adenocarcinoma with wide metastasis to bones and adrenal gland. Chest x-ray shows left lung whiteout similar to previous chest x-ray. I reviewed previous office note of Dr. Nava. Brain MRI no acute finding. As per his documentation is stage IV (T4, N3, M1) metastatic left lung NSCLC adenocarcinoma histology. And that there is small left pleural effusion. PET scan shows viable skeletal metastatic disease and adrenal gland. Poor prognosis. Currently patient is following [facility] oncologist and as p er patient he visited first time last week. Currently not on any therapeutic/palliative medication for cancer. 3. Recent COVID-19 symptoms with recent postobstructive pneumonia, high possibility of bacterial superinfection:It is hard to ascertain onset of symptoms of COVID-19 as he was before having postobstructive pneumonia from lung cancer. Patient is started on dexamethasone 6 mg IV daily. He is not a candidate of remdesivir because of ongoing pancreatitis, lung cancer and uncertainty of time period of onset of symptoms. Continue incentive spirometry, Pep. Robitussin as needed for cough. 03/11: Patient had fever temperature 101.5 ?F. DC Levaquin and start Zosyn. WBC count high, immature granulocytes 2.3 thousand. Possible complicated with cancer history and pneumonia. Blood cultures x2 ordered. Urinary antigens are negative. Procalcitonin 0.26, less than 0.5 mentions no_progression to severe sepsis or septic shock. CRP elevated. LDH and CK normal 03/12: Respiratory panel negative. Blood cultures x2 are pending. 4 COPD: Patient had PFT done on 02/18/2021 which shows a reversible moderate large airway obstructive ventilatory defect with preserved lung volumes and mild reduction in diffusion capacity. Bronchodilator as needed. DVT prophylaxis: High risk. Lovenox 30 mils subcu twice daily. Recent CT chest on last ED visit 03/07/2021 was negative for central or segmental PE but shows features of large left upper lobe mass with extension to mediastinum and left hilar adenopathy, left adrenal metastasis. Small left pleural effusion. Left lower lobe consolidation. Living will/advanced directive/end of life care: Patient does not have living will or advanced directive. After discussion of benefits/risks procedures involved with full code, DNR CC arrest and DNR CC, the patient, his and nurse that he could not clear. They want CPR but no intubation ventilator or shock. I gave them the option of either full code, DNR CC arrest with intubation or DNRCC arrest without intubation. The repeated CPR therefore full code. Patient doesn't want artificial life support including intubation, ventilator, central venous catheter, vasopressor and DC shock if needed Total time spent in [id number] encounter in discussion of advanced directive 16 minutes. Clinical Impression(s) from Imaging Studies Abdomen/Pelvis CT 03/10/21 13:11 IMPRESSION: Findings in keeping with a mild degree of pancreatitis. Small gallstones are seen in the dependent portion of the gallbladder lumen. Small amount of fluid is seen in the cul-de-sac. Gallbladder Ultrasound 03/10/21 15:12 IMPRESSION: 1. Several small gallstones 2. Mildly enlarged liver. Charges/Coding Visit Charges Inpatient E&M: 62943 Subs Hosp L2
[2021-03-12] MEDS: MELATONIN 3 MG TABLET PO (22:53)
--- NOTE | 2021-03-12 23:52 | NURSING ---
Return phone call placed to spouse, Kayley, w/ update. Informed per pt report he is feeling better tonight than last night. This nurse just medicated w/for pain prior to phone call and acknowledges he can call for staff for any needs. Expresses appreciation for phone call.
[2021-03-13] VITALS (14 sets, daily range): BP systolic 111–152; BP diastolic 65–82; PULSE 90–98; RESP 16–28; TEMP 35.8–36.8; O2SAT 87–100
--- NOTE | 2021-03-13 03:05 | NURSING ---
Cortext sent to Dr. Bates w/ reports of poorly controlled abdominal pain and pt is not due for next dose if IV Dilaudid. Received phone call within minutes for new order to administer dose of IV Dilaudid 0.5 mg x 1 now.
[2021-03-13] MEDS: HYDROmorphone 0.5 MG/0.5 ML SYRINGE IV ×2 (03:10→07:13)
[2021-03-13 06:54] LABS: Absolute Lymphocyte Count 1.29 X10^3/uL (0.83-4.51); Absolute Neutrophil Count 33.8 X10^3/uL (2.0-7.7); Basophil# 0.09 X10^3/uL; Basophil% 0.2 % (0-1); Eosinophil# 1.09 X10^3/uL; Eosinophils% 2.8 % (0-5); Hematocrit 31.5 % (40-54); Hemoglobin 10.2 g/dL (13.0-16.5); Lymphocyte # 1.29 X10^3/ul (0.83-4.51); Lymphocyte % 3.4 % (19-41); Mean Corp Hgb Conc 32.4 g/dL (32-36); Mean Corpuscular Hgb 25.7 pg (27.0-32.0); Mean Corpuscular Volume 79.3 fL (80-94); Monocyte# 1.46 X10^3/uL; Monocyte% 3.8 % (0-10); NRBC Flagged by Analyzer 0 % (0-5); Neutrophil # 33.77 X10^3/uL (2.7-7.7); Neutrophil % 88.2 % (47-70); POSITIVE COUNT YES; POSITIVE DIFFERENTIAL YES; Platelet Count 340 K/mm3 (150-450); RBC Distribution Width CV 14.4 % (11.6-14.6); RBC Distribution Width SD 41.4 fl (35.1-43.9); Red Blood Count 3.97 M/mm3 (4.6-6.2); White Blood Count 38.3 K/mm3 (4.4-11.0)
[2021-03-13] MEDS: Piperacil/Tazobactam 3.375 GM/50 ML ML IV ×3 (06:55→22:50)
[2021-03-13 07:01] LABS: Differential Indicated SCAN CRITERIA MET
[2021-03-13] MEDS: 0.9% Saline Lock 10 ML Syringe IV ×3 (07:13→17:16)
[2021-03-13 07:32] LABS: ALB/GLOB Ratio 0.4 RATIO (0.9-2.4); AST(SGOT) 16 U/L (15-37); Alanine Aminotransfer ALT/SGPT 42 U/L (16-61); Alkaline Phosphatase 123 U/L (45-117); Anion Gap 13 (5-15); BUN 13 mg/dL (7-18); BUN/Creat Ratio 28.2 RATIO (10-20); Calcium,Total 8.7 mg/dL (8.5-10.1); Chloride 98 mmol/L (98-107); Creatinine, Serum 0.46 mg/dL (0.70-1.30); EST Glomerular Filtration Rate 202 mL/min (>60); Est Glom Filt Rate - Afr Amer 244 mL/min (>60); Glucose 111 mg/dL (74-106); Lipase 1423 U/L (73-393); Potassium 3.2 mmol/L (3.5-5.1); Sodium Level 133 mmol/L (136-145)
--- NOTE | 2021-03-13 07:54 | NURSING ---
Return phone call to pt's spouse, Kayley, requesting an update. Updated on episode of increased pain during the night and IV Dilaudid given one hour early per dr order. Pain slightly improved this am and shifted to the left side of abdomen. Medicated w/ IV Dilaudid again. Pt was encouraged to take ice chips and small sips of water to promote hydration. Sounds tearful on the phone and notes she wakes up at night concerned w/ his current status. Emotional support and active listening provided. Informed her dayshift RN will call w/ update after assessment and staff will contact PRN for any significant change(s).
[2021-03-13 09:25] LABS: Magnesium 2.2 mg/dL (1.6-2.6); Phosphorus 2.9 mg/dL (2.5-4.9)
[2021-03-13] MEDS: Fluticasone 0.05% 1 SPRAY NASAL.SRY NASAL (10:13)
[2021-03-13] MEDS: Potassium Chloride Oral Tablet 20 MEQ 40 MEQ PO ×2 (10:13→12:29)
[2021-03-13] MEDS: dexAMETHasone 10 MG/ML Vial 6 MG IV (10:13)
[2021-03-13] MEDS: Enoxaparin 30 MG/0.3 ML Syringe SC ×2 (10:14→22:13)
--- NOTE | 2021-03-13 11:49 | PN.HOSP_ITS ---
Subjective Subjective Patient still feels intermittently abdominal cramps but is able to take clear liquids without nausea or vomiting. No fever last 24 hours. Objective Data Objective Data Vital Signs: Vital Signs Temp Pulse Resp BP Pulse Ox 97.8 F 98 18 118/72 100 03/13/21 10:00 03/13/21 10:00 03/13/21 10:00 03/13/21 10:00 03/13/21 10:00 Oxygen Flow Rate (L/min) 1 Oxygen Delivery Method Nasal Cannula Weight: 174 lb 6 oz Body Mass Index (BMI) 24.5 Intake & Output: Intake and Output for Last 24 Hours 03/11/21 03/12/21 03/13/21 23:59 23:59 23:59 Intake Total 2054 / 2054 721.67 / 721.67 50 / 50 Output Total 1850 / 1850 1050 / 1175 250 / 250 Balance -328.33 / -453.33 -200 / -200 Medical Nutrition Assessment Dietitian: Malnutrition Criteria Met Start: 03/11/21 15:19 Freq: Status: Active Protocol: Document 03/11/21 15:20 RMA (Rec: 03/11/21 15:20 RMA [id number]) Nutrition Malnutrition Evidence of Malnutrition Exists Yes Malnutrition (severe): Acute Illness/Injury,Chronic Evidenced By Suboptimal Energy Intake ( Severe),Weight Loss (Severe) Clinical Problem Chronic Disease or Condition Related Malnutrition Etiology Severe protein/calorie malnutrition in the context of acute on chronic disease related to inadequate oral intake Signs/Symptoms as evidenced by 6% wt loss x 1 month and PO meeting less than 50-75% estimated nutrition needs Status Active Problem Recommendation Dietitian Recommendations/Changes Recommend advance diet as tolerated to Fat-Restricted. Will add 240ml ensure clear TID w/ meals. Lab / Micro Data Result Diagrams: 03/13/21 06:10 03/13/21 06:10 Labs: Laboratory Results - last 24 hr 03/13/21 06:10: WBC 38.3 H*, RBC 3.97 L, Hgb 10.2 L, Hct 31.5 L, MCV 79.3 L, MCH 25.7 L, MCHC 32.4, RDW Std Deviation 41.4, RDW Coeff of Yuki 14.4, Plt Count 340, MPV 9.0, Immature Gran % (Auto) 1.600 H, Neut % (Auto) 88.2 H, Lymph % (Auto) 3.4 L, [place] % (Auto) 3.8, Eos % (Auto) 2.8, Baso % (Auto) 0.2, Absolute Neuts (auto) 33.8 H, Absolute Lymphs (auto) 1.29, Nucleated RBC % 0, Diff Path Review July03/13/21 06:10: Sodium 133 L, Potassium 3.2 L, Chloride 98, Carbon Dioxide 22.0, Anion Gap 13, BUN 13, Creatinine 0.46 L, Estim Creat Clear Calc 201.50, Est GFR (MDRD) Af Amer 244, Est GFR (MDRD) Non-Af 202, BUN/Creatinine Ratio 28.2 H, Glucose 111 H, Calcium 8.7, Total Bilirubin 1.50 H, AST 16, ALT 42, Alkaline Phosphatase 123 H, Total Protein 7.0, Albumin 2.0 L, Globulin 5.0 H, Albumin/Globulin Ratio 0.4 L, Lipase 1423 H 03/13/21 06:10: Phosphorus 2.9, Magnesium 2.2 Micro: Microbiology 03/11/21 10:40 Mucosa - Nasopharyngeal Respiratory Panel (PCR) - Final 03/11/21 10:30 Urine, Clean Catch Legionella Antigen - Final 03/11/21 10:30 Urine, Random Streptococcus pneumoniae Antigen (M - Final Physical Exam Narrative Seen and examined. Patient tolerating clear liquid diet. Intermittent abdominal cramps. General: Alert, Oriented x3, Cooperative HEENT: Atraumatic, PERRLA, EOMI, Normocephalic Oral: No Gingival or Mucosal Lesions/ Ulcerations Neck: Supple, No JVD, Negative Carotid Bruits Lungs: Air entry absent in left lung. Right lung no crepitation or rhonchi. 92% on 2 L of oxygen. Cardiovascular: Regular rate, Regular Rhythm, Normal S1, Normal S2, No murmurs Abdomen: Bowel Sounds Present, Soft, no tenderness no distention. : No renal angle tenderness. No suprapubic tenderness. Extremities: No edema, Capillary Refill Less than 3 Seconds Skin: No rashes, No breakdown Musculoskeletal: No Tenderness to Palpation of Joints or Extremities. No muscle tenderness Neurological: Cranial nerves II-XII grossly intact, DTR 2+/4 and Symmetrical, Neuro grossly intact Psych/Mental Status: Flat affect. Assessment & Plan Assessment/Plan (1) COVID-19: (2) Acute pancreatitis: QUALIFIERS: Acute pancreatitis complication: no infection or necrosis Pancreatitis type: biliary Qualified Code(s): K85.10 - Biliary acute pancreatitis without necrosis or infection PLAN: 1. Acute pancreatitis probably biliary pancreatitis: [facility] Discussed with the surgeon Dr. Andrews. CT abdomen and GB sonogram reviewed. It seems there is no features of acute cholecystitis as per ultrasound but several dependent gallstones. Started on IV fluid Ringer lactate 100 mill per hour for 2 L. BUN 13, creatinine 0.65. 03/11: IV fluids decreased to 75 mill per hour for 500 ml and then stop. Started on clear liquid diet. Restricted IV fluid approach in view of Covid infection and left lung whiteout with left lung history, postobstructive pneumonia, atelectasis possible effusion. Discussed with the surgeon. No features of acute cholecystitis therefore advised outpatient follow-up after Covid isolation. 03/11: Continue IV fluid. Keep n.p.o. until abdominal pain subsides. 03/13: IV fluid Ringer lactate 1 L at 75 mill per hour. Continue clear liquid diet. Lipase is decreasing 2. Stage IV NSCLC adenocarcinoma histology With postobstructive pneumonia:. Left lung NSCLC adenocarcinoma with wide metastasis to bones and adrenal gland. Chest x-ray shows left lung whiteout similar to previous chest x-ray. I reviewed previous office note of Dr. Nava. Brain MRI no acute finding. As per his documentation is stage IV (T4, N3, M1) metastatic left lung NSCLC adenocarcinoma histology. And that there is small left pleural effusion. PET scan shows viable skeletal metastatic disease and adrenal gland. Poor prognosis. Currently patient is following [facility] oncologist and as per patient he visited first time last week. Currently not on any therapeutic/palliative medication for cancer. 03/13: Discussed with Dr. Lanier we agreed to see tomorrow. Consult requested. Discussed about the rising WBC count mainly neutrophils and complex history of adenocarcinoma with postobstructive pneumonia and COVID-19 pneumonia. 3. Recent COVID-19 symptoms with recent postobstructive pneumonia, high possibility of bacterial superinfection:It is hard to ascertain onset of symptoms of COVID-19 as he was before having postobstructive pneumonia from lung cancer. Patient is started on dexamethasone 6 mg IV daily. He is not a candidate of remdesivir because of ongoing pancreatitis, lung cancer and uncertainty of time period of onset of symptoms. Continue incentive spirometry, Pep. Robitussin as needed for cough. 03/11: Patient had fever temperature 101.5 ?F. DC Levaquin and start Zosyn. WBC count high, immature granulocytes 2.3 thousand. Possible complicated with cancer history and pneumonia. Blood cultures x2 ordered. Urinary antigens are negative. Procalcitonin 0.26, less than 0.5 mentions no_progression to severe sepsis or septic shock. CRP elevated. LDH and CK normal 03/12: Respiratory panel negative. Blood cultures x2 are pending. 4 COPD: Patient had PFT done on 02/18/2021 which shows a reversible moderate large airway obstructive ventilatory defect with preserved lung volumes and mild reduction in diffusion capacity. Bronchodilator as needed. DVT prophylaxis: High risk. Lovenox 30 mils subcu twice daily. Recent CT chest on last ED visit 03/07/2021 was negative for central or segmental PE but shows features of large left upper lobe mass with extension to mediastinum and left hilar adenopathy, left adrenal metastasis. Small left pleural effusion. Left lower lobe consolidation. Living will/advanced directive/end of life care: Patient does not have living will or advanced directive. After discussion of benefits/risks procedures involved with full code, DNR CC arrest and DNR CC, the patient, his and nurse that he could not clear. They want CPR but no intubation ventilator or shock. I gave them the option of either full code, DNR CC arrest with intubation or DNRCC arrest without intubation. The repeated CPR therefore full code. Patient doesn't want artificial life support including intubation, ventilator, central venous catheter, vasopressor and DC shock if needed Total time spent in [id number] encounter in discussion of advanced directive 16 minutes. Clinical Impression(s) from Imaging Studies Abdomen/Pelvis CT 03/10/21 13:11 IMPRESSION: Findings in keeping with a mild degree of pancreatitis. Small gallstones are seen in the dependent portion of the gallbladder lumen. Small amount of fluid is seen in the cul-de-sac. Gallbladder Ultrasound 03/10/21 15:12 IMPRESSION: 1. Several small gallstones 2. Mildly enlarged liver. Charges/Coding Visit Charges Inpatient E&M: 93069 Subs Hosp L2
--- NOTE | 2021-03-13 12:46 | NURSING ---
called and given update
[2021-03-13] MEDS: MELATONIN 3 MG TABLET PO (22:12)
[2021-03-14] VITALS (12 sets, daily range): BP systolic 109–143; BP diastolic 69–85; PULSE 88–106; RESP 18–28; TEMP 36.1–37.1; O2SAT 90–96
[2021-03-14] MEDS: Piperacil/Tazobactam 3.375 GM/50 ML ML IV ×3 (05:54→22:14)
--- NOTE | 2021-03-14 06:47 | NURSING ---
updated jasmin, pt's , on nights events.
[2021-03-14 07:49] LABS: Absolute Lymphocyte Count 1.25 X10^3/uL (0.83-4.51); Absolute Neutrophil Count 36.6 X10^3/uL (2.0-7.7); Basophil# 0.07 X10^3/uL; Basophil% 0.2 % (0-1); Hematocrit 32.4 % (40-54); Hemoglobin 10.4 g/dL (13.0-16.5); Lymphocyte # 1.25 X10^3/ul (0.83-4.51); Lymphocyte % 2.9 % (19-41); Mean Corp Hgb Conc 32.1 g/dL (32-36); Mean Corpuscular Hgb 25.4 pg (27.0-32.0); Mean Platelet Vol. 8.8 fl (6.2-12.0); Monocyte# 1.72 X10^3/uL; NRBC Flagged by Analyzer 0 % (0-5); Neutrophil # 36.63 X10^3/uL (2.7-7.7); POSITIVE COUNT YES; POSITIVE DIFFERENTIAL YES; Platelet Count 297 K/mm3 (150-450); RBC Distribution Width CV 14.5 % (11.6-14.6)
[2021-03-14 07:51] LABS: Eosinophil# 2.11 X10^3/uL
[2021-03-14 07:53] LABS: Differential Indicated SCAN CRITERIA MET; White Blood Count 42.6 K/mm3 (4.4-11.0)
[2021-03-14 08:16] LABS: ALB/GLOB Ratio 0.4 RATIO (0.9-2.4); AST(SGOT) 17 U/L (15-37); Alanine Aminotransfer ALT/SGPT 35 U/L (16-61); Alkaline Phosphatase 165 U/L (45-117); Anion Gap 10 (5-15); BUN 14 mg/dL (7-18); BUN/Creat Ratio 27.6 RATIO (10-20); Calcium,Total 8.9 mg/dL (8.5-10.1); Chloride 100 mmol/L (98-107); Creatinine, Serum 0.51 mg/dL (0.70-1.30); EST Glomerular Filtration Rate 181 mL/min (>60); Est Glom Filt Rate - Afr Amer 219 mL/min (>60); Estimated Creatinine Clearance 181.74 ml/min; Globulin 4.9 g/dL (2.2-4.2); Glucose 111 mg/dL (74-106); Potassium 3.7 mmol/L (3.5-5.1); Protein, Total 6.9 g/dL (6.4-8.2); Sodium Level 133 mmol/L (136-145)
[2021-03-14] MEDS: Fluticasone 0.05% 1 SPRAY NASAL.SRY NASAL (08:42)
[2021-03-14] MEDS: Enoxaparin 30 MG/0.3 ML Syringe SC ×2 (08:42→20:58)
[2021-03-14] MEDS: dexAMETHasone 10 MG/ML Vial 6 MG IV (08:42)
[2021-03-14] MEDS: 0.9% Saline Lock 10 ML Syringe IV ×2 (08:43→14:15)
[2021-03-14 10:24] LABS: Pathologist Review Reviewed
--- NOTE | 2021-03-14 16:39 | PN.HOSP_ITS ---
Subjective Subjective Abdominal pain is much improved and he would like to start small diet if possible. He still short of breath and has had increasing oxygen requirements today, he is now up to 5 or 6 L nasal cannula Objective Data Objective Data Vital Signs: Vital Signs Temp Pulse Resp BP Pulse Ox 97.0 F L 106 H 20 H 109/69 94 03/14/21 15:15 03/14/21 15:15 03/14/21 15:15 03/14/21 15:15 03/14/21 15:15 Oxygen Flow Rate (L/min) 5 Oxygen Delivery Method High Flow Weight: 174 lb 9.698 oz Body Mass Index (BMI) 24.5 Intake & Output: Intake and Output for Last 24 Hours 03/13/21 03/14/21 03/15/21 03:59 03:59 03:59 Intake Total 721.67 / 721.67 370 / 370 580 / 580 Output Total 1175 / 1175 625 / 625 450 / 450 Balance -453.33 / -453.33 -255 / -255 130 / 130 Medical Nutrition Assessment Dietitian: Malnutrition Criteria Met Start: 03/11/21 15:19 Freq: Status: Active Protocol: Document 03/11/21 15:20 RMA (Rec: 03/11/21 15:20 RMA [id number]) Nutrition Malnutrition Evidence of Malnutrition Exists Yes Malnutrition (severe): Acute Illness/Injury,Chronic Evidenced By Suboptimal Energy Intake ( Severe),Weight Loss (Severe) Clinical Problem Chronic Disease or Condition Related Malnutrition Etiology Severe protein/calorie malnutrition in the context of acute on chronic disease related to inadequate oral intake Signs/Symptoms as evidenced by 6% wt loss x 1 month and PO meeting less than 50-75% estimated nutrition needs Status Active Problem Recommendation Dietitian Recommendations/Changes Recommend advance diet as tolerated to Fat-Restricted. Will add 240ml ensure clear TID w/ meals. Lab / Micro Data Result Diagrams: 03/14/21 07:35 03/14/21 07:35 Labs: Laboratory Results - last 24 hr 03/11/21 06:42: Diff Path Review Reviewed 03/14/21 05:35: Sodium Cancelled, Potassium Cancelled, Chloride Cancelled, Carbon Dioxide Cancelled, Anion Gap Cancelled, BUN Cancelled, Creatinine Cancelled, Estim Creat Clear Calc Cancelled, Est GFR (MDRD) Af Amer Cancelled, Est GFR (MDRD) Non-Af Cancelled, BUN/Creatinine Ratio Cancelled, Glucose Cancelled, Calcium Cancelled, Total Bilirubin Cancelled, AST Cancelled, ALT Cancelled, Alkaline Phosphatase Cancelled, Total Protein Cancelled, Albumin Cancelled, Globulin Cancelled, Albumin/Globulin Ratio Cancelled 03/14/21 05:35: WBC Cancelled, Corrected WBC Cancelled, RBC Cancelled, Hgb Cancelled, Hct Cancelled, MCV Cancelled, MCH Cancelled, MCHC Cancelled, RDW Std Deviation Cancelled, RDW Coeff of Yuki Cancelled, Plt Count Cancelled, MPV Cancelled, Immature Gran % (Auto) Cancelled, Neut % (Auto) Cancelled, Lymph % (Auto) Cancelled, [place] % (Auto) Cancelled, Eos % (Auto) Cancelled, Baso % (Auto) Cancelled, Absolute Neuts (auto) Cancelled, Absolute Lymphs (auto) Cancelled, Total Counted Cancelled, Neutrophils % (Manual) Cancelled, Band Neutrophils % Cancelled, Lymphocytes % (Manual) Cancelled, Monocytes % (Manual) Cancelled, Eosinophils % (Manual) Cancelled, Basophils % (Manual) Cancelled, Metamyelocytes % Cancelled, Myelocytes % Cancelled, Promyelocytes % Cancelled, Blast Cells % Cancelled, Plasma Cell % (Manual) Cancelled, Other Cells % Cancelled, Nucleated RBC % Cancelled, Nucleated RBCs/100 WBC Cancelled, Differential Comment Cancelled, Diff Path Review Cancelled, Hypersegmented Neuts Cancelled, Atypical Lymphocytes Cancelled, Reactive Lymphocytes Cancelled, Smudge Cells Cancelled, Toxic Granulation Cancelled, Toxic Vacuolation Cancelled, Dohle Bodies Cancelled, Casey Rods Cancelled, Platelet Estimate Cancelled, Plt Morphology Comment Cancelled, RBC Morphology Cancelled, Polychromasia Cancelled, Hypochromasia Cancelled, Poikilocytosis Cancelled, Basophilic Stippling Cancelled, Anisocytosis Cancelled, Microcytosis Cancelled, Macrocytosis Cance lled, Spherocytes Cancelled, Sickle Cells Cancelled, Target Cells Cancelled, Tear Drop Cells Cancelled, Ovalocytes Cancelled, Stomatocytes Cancelled, Blake- [place]ablo Bodies Cancelled, Sidell Cells Cancelled, Bite Cells Cancelled, Crenated Cell Cancelled, Acanthocytes (Spur) Cancelled, Rouleaux Cancelled, Schistocytes Cancelled 03/14/21 07:35: WBC 42.6 H*, RBC 4.10 L, Hgb 10.4 L, Hct 32.4 L, MCV 79.0 L, MCH 25.4 L, MCHC 32.1, RDW Std Deviation 42.0, RDW Coeff of Yuki 14.5, Plt Count 297, MPV 8.8, Immature Gran % (Auto) 1.900 H, Neut % (Auto) 86.0 H, Lymph % (Auto) 2.9 L, [place] % (Auto) 4.0, Eos % (Auto) 5.0, Baso % (Auto) 0.2, Absolute Neuts (auto) 36.6 H, Absolute Lymphs (auto) 1.25, Nucleated RBC % 0, Differential Comment COMMENT, Diff Path Review July03/14/21 07:35: Sodium 133 L, Potassium 3.7, Chloride 100, Carbon Dioxide 23.0, Anion Gap 10, BUN 14, Creatinine 0.51 L, Estim Creat Clear Calc 181.74, Est GFR (MDRD) Af Amer 219, Est GFR (MDRD) Non-Af 181, BUN/Creatinine Ratio 27.6 H, Glucose 111 H, Calcium 8.9, Total Bilirubin 1.40 H, AST 17, ALT 35, Alkaline Phosphatase 165 H, Total Protein 6.9, Albumin 2.0 L, Globulin 4.9 H, Albumin/Globulin Ratio 0.4 L Micro: Microbiology 03/11/21 08:55 Blood Culture (Wb) - Right Wrist Blood Culture - Preliminary No growth in 48 hours. 03/11/21 08:50 Blood Culture (Wb) - Anticubital Right Blood Culture - Preliminary No growth in 48 hours. 03/11/21 10:40 Mucosa - Nasopharyngeal Respiratory Panel (PCR) - Final 03/11/21 10:30 Urine, Clean Catch Legionella Antigen - Final 03/11/21 10:30 Urine, Random Streptococcus pneumoniae Antigen (M - Final Physical Exam Const alert, oriented x3 and no apparent distress General Appearance: cooperative HEENT normocephalic and moist oral mucous membranes Eyes PERRL, EOMs intact bilaterally and conjunctivae normal Neck supple and no JVD Resp normal respiratory effort, no retractions and no use of accessory muscles Auscultation: diminished lung sounds; Negative for crackles, rales, rhonchi or wheezes Cardio regular rate, regular rhythm, S1 normal heart sound, S2 normal heart sound and no murmurs GI soft to palpation, non-tender and non-distended; Negative for hepatosplenomegaly Extremity no clubbing, cyanosis or edema Skin no rashes or lesions noted Neuro no focal motor deficits and no sensory deficits noted Psych affect normal Appearance: appropriate Assessment & Plan Assessment/Plan (1) COVID-19: (2) Acute pancreatitis: QUALIFIERS: Pancreatitis type: biliary Acute pancreatitis complication: no infection or necrosis Qualified Code(s): K85.10 - Biliary acute pancreatitis without necrosis or infection PLAN: 1. Acute pancreatitis probably biliary pancreatitis: [facility] Discussed with the surgeon Dr. Andrews. CT abdomen and GB sonogram reviewed. It seems there is no features of acute day[place] cystitis as per ultrasound but several dependent gallstones. Started on IV fluid Ringer lactate 100 mill per hour for 2 L. BUN 13, creatinine 0.65. 03/11: IV fluids decreased to 75 mill per hour for 500 ml and then stop. Started on clear liquid diet. Restricted IV fluid approach in view of Covid infection and left lung whiteout with left lung history, postobstructive pneumonia, atelectasis possible effusion. Discussed with the surgeon. No features of acute cholecystitis therefore advised outpatient follow-up after Covid isolation. 03/11: Continue IV fluid. Keep n.p.o. until abdominal pain subsides. 03/13: IV fluid Ringer lactate 1 L at 75 mill per hour. Continue clear liquid diet. Lipase is decreasing 03/14/2021: Given the resolution of his abdominal pain, will start him on a full liquid diet and if he is able to maintain his p.o. intake, will remove his IV fluids 2. Stage IV NSCLC adenocarcinoma histology With postobstructive pneumonia:. Left lung NSCLC adenocarcinoma with wide metastasis to bones and adrenal gland. Chest x-ray shows left lung whiteout similar to previous chest x-ray. I reviewed previous office note of Dr. Nava. Brain MRI no acute finding. As per his documentation is stage IV (T4, N3, M1) metastatic left lung NSCLC adenocarcinoma histology. And that there is small left pleural effusion. PET scan shows viable skeletal metastatic disease and adrenal gland. Poor prognosis. Currently patient is following [facility] oncologist and as per patient he visited first time last week. Currently not on any therapeutic/palliative medication for cancer. 03/13: Discussed with Dr. Lanier we agreed to see tomorrow. Consult requested. Discussed about the rising WBC count mainly neutrophils and complex history of adenocarcinoma with postobstructive pneumonia and COVID-19 pneumonia. 03/14/2021: Updated follow-up with the oncologist optically in [facility] and they have recommended therapy however he does not qualify for treatment at this time while he has active Covid and pancreatitis once this is resolved and he can initiate chemotherapy 3. Recent COVID-19 symptoms with recent postobstructive pneumonia, high possibility of bacterial superinfection:It is hard to ascertain onset of symptoms of COVID-19 as he was before having postobstructive pneumonia from lung cancer. Patient is started on dexamethasone 6 mg IV daily. He is not a candidate of remdesivir because of ongoing pancreatitis, lung cancer and uncertainty of time period of onset of symptoms. Continue incentive spirometry, Pep. Robitussin as needed for cough. 03/11: Patient had fever temperature 101.5 ?F. DC Levaquin and start Zosyn. WBC count high, immature granulocytes 2.3 thousand. Possible complicated with cancer history and pneumonia. Blood cultures x2 ordered. Urinary antigens are negative. Procalcitonin 0.26, less than 0.5 mentions no_progression to severe sepsis or septic shock. CRP elevated. LDH and CK normal 03/12: Respiratory panel negative. Blood cultures x2 are pending. 03/14/2021: He has increasing oxygen requirements will continue new Zosyn for the possibility of bacterial superinfection given his lung mass and Covid infection. We will continue with Decadron 4 COPD: Patient had PFT done on 02/18/2021 which shows a reversible moderate large airway obstructive ventilatory defect with preserved lung volumes and mild reduction in diffusion capacity. Bronchodilator as needed. DVT: Lovenox Charges/Coding Visit Charges Inpatient E&M: 80844 Subs Hosp L2
--- NOTE | 2021-03-14 18:17 | CON.PCM.ON_ITS ---
Assessment & Plan Assessment/Plan (1) COVID-19: Status: Acute Code(s): U07.1 - COVID-19 (2) Acute pancreatitis: Status: Acute Code(s): K85.90 - Acute pancreatitis without necrosis or infection, unspecified Qualifiers: Acute pancreatitis complication: no infection or necrosis Pancreatitis type: biliary Qualified Code(s): K85.10 - Biliary acute pancreatitis without necrosis or infection Plan: Impression: -Covid pneumonia with increasing oxygen requirements. -Pancreatitis. -Ret mutation positive NSCLCl. -PET reviewed. -Will be candidate for selpercatinib once acute issues addressed. Plan: -Acute management per [facility] hospitalist team. -Discussed with Dr. Engle. -Rx already sent by lung cancer group at [facility]. -Notify my office when ready for discharge. HPI Consult Data Date of Service:: 03/14/21 PCP / Referring Provider: Dr. Saulo Cooney MD Attending: Dr. Buck Engle MD Chief Complaint Chief Complaint: Lung cancer History of Present Illness History of Present Illness: Please see full H&P in the [facility] medical record. Metastatic NSCLC. RET mutation positive. Admitted with Covid and acute pancreatitis. Advanced Directives Power of Instrument Engineer: Yes Living Will: Yes [facility] Medical History Alcohol use Bone metastases Chest pain Former smoker Injury of head and neck Lab test negative for COVID-19 virus Metastasis to adrenal gland Regional lymph node metastasis present Shortness of breath on exertion Home Medications benzonatate 100 mg capsule 100 mg PO BID-TID PRN 03/03/21 [History Last Taken 03/09/21] levofloxacin 500 mg tablet 500 mg PO DAILY 03/03/21 [History Last Taken 03/09/21] ondansetron HCl 4 mg tablet 4 mg PO Q8H 03/03/21 [History Last Taken Unknown] dexamethasone [Decadron] 6 mg PO DAILY #9 tab 03/07/21 [Rx Last Taken 03/09/21] fluticasone propionate [Flonase] 1 spray INTRANASAL BID 03/10/21 [History Last Taken 03/09/21] omeprazole [Prilosec] 40 mg PO DAILY 03/10/21 [History Last Taken 03/09/21] Allergy/AdvReac Type Severity Reaction Status Date / Time No Known Allergies Allergy Verified 03/10/21 13:18 Family History Mother Diabetes Surgical History History of lung biopsy Social History household members: spouse Smoking Status: Former smoker quit date: 03/26/79 pack-years: 2 Tobacco: How many years used: 2 second hand exposure: No details: occasionally substance use type: does not use radha/gnosticist: Hindu seatbelt use: always do you feel safe at home: Yes Vital Signs Temperature 97 F L 03/14/21 17:18 Temperature Source Oral 03/14/21 17:18 Pulse Rate 92 03/14/21 17:18 Pulse Strength Normal (2+) 03/10/21 22:00 Respiratory Rate 18 03/14/21 17:18 Respiratory Effort Non-Labored 03/14/21 15:30 Respiratory Depth Deep 03/14/21 08:45 Respiratory Pattern Tachypnea 03/14/21 08:45 Blood Pressure 122/73 H 03/14/21 17:18 Blood Pressure Mean 89 03/14/21 17:18 Blood Pressure Source Monitor 03/14/21 17:18 Blood Pressure Position Semi-Fowlers 03/14/21 17:18 Blood Pressure Location Left Arm 03/14/21 15:15 Pulse Ox 92 03/14/21 17:18 Oxygen Delivery Method High Flow 03/14/21 17:18 Oxygen Flow Rate (L/min) 5 03/14/21 15:30 Laboratory Results - last 24 hr 03/11/21 06:42: Diff Path Review Reviewed 03/14/21 05:35: Sodium Cancelled, Potassium Cancelled, Chloride Cancelled, Carbon Dioxide Cancelled, Anion Gap Cancelled, BUN Cancelled, Creatinine Cancelled, Estim Creat Clear Calc Cancelled, Est GFR (MDRD) Af Amer Cancelled, Est GFR (MDRD) Non-Af Cancelled, BUN/Creatinine Ratio Cancelled, Glucose Cancelled, Calcium Cancelled, Total Bilirubin Cancelled, AST Cancelled, ALT Cancelled, Alkaline Phosphatase Cancelled, Total Protein Cancelled, Albumin Cancelled, Globulin Cancelled, Albumin/Globulin Ratio Cancelled 03/14/21 05:35: WBC Cancelled, Corrected WBC Cancelled, RBC Cancelled, Hgb Cance lled, Hct Cancelled, MCV Cancelled, MCH Cancelled, MCHC Cancelled, RDW Std Deviation Cancelled, RDW Coeff of Yuki Cancelled, Plt Count Cancelled, MPV Cancelled, Immature Gran % (Auto) Cancelled, Neut % (Auto) Cancelled, Lymph % (Auto) Cancelled, Sharkey % (Auto) Cancelled, Eos % (Auto) Cancelled, Baso % (Auto) Cancelled, Absolute Neuts (auto) Cancelled, Absolute Lymphs (auto) Cancelled, Total Counted Cancelled, Neutrophils % (Manual) Cancelled, Band Neutrophils % Cancelled, Lymphocytes % (Manual) Cancelled, Monocytes % (Manual) Cancelled, Eosinophils % (Manual) Cancelled, Basophils % (Manual) Cancelled, Metamyelocytes % Cancelled, Myelocytes % Cancelled, Promyelocytes % Cancelled, Blast Cells % Cancelled, Plasma Cell % (Manual) Cancelled, Other Cells % Cancelled, Nucleated RBC % Cancelled, Nucleated RBCs/100 WBC Cancelled, Differential Comment Cancelled, Diff Path Review Cancelled, Hypersegmented Neuts Cancelled, Atypical Lymphocytes Cancelled, Reactive Lymphocytes Cancelled, Smudge Cells Cancelled, Toxic Granulation Cancelled, Toxic Vacuolation Cancelled, Dohle Bodies Cancelled, Casey Rods Cancelled, Platelet Estimate Cancelled, Plt Morphology Comment Cancelled, RBC Morphology Cancelled, Polychromasia Cancelled, Hypochromasia Cancelled, Poikilocytosis Cancelled, Basophilic Stippling Cancelled, Anisocytosis Cancelled, Microcytosis Cancelled, Macrocytosis Cancelled, Spherocytes Cancelled, Sickle Cells Cancelled, Target Cells Cancelled, Tear Drop Cells Cancelled, Ovalocytes Cancelled, Stomatocytes Cancelled, Blake[place] Bodies Cancelled, Guion Cells Cancelled, Bite Cells Cancelled, Crenated Cell Cancelled, Acanthocytes (Spur) Cancelled, Rouleaux Cancelled, Schistocytes Cancelled 03/14/21 07:35: WBC 42.6 H*, RBC 4.10 L, Hgb 10.4 L, Hct 32.4 L, MCV 79.0 L, MCH 25.4 L, MCHC 32.1, RDW Std Deviation 42.0, RDW Coeff of Yuki 14.5, Plt Count 297, MPV 8.8, Immature Gran % (Auto) 1.900 H, Neut % (Auto) 86.0 H, Lymph % (Auto) 2.9 L, Sharkey % (Auto) 4.0, Eos % (Auto) 5.0, Baso % (Auto) 0.2, Absolute Neuts (auto) 36.6 H, Absolute Lymphs (auto) 1.25, Nucleated RBC % 0, Differential Comment COMMENT, Diff Path Review July03/14/21 07:35: Sodium 133 L, Potassium 3.7, Chloride 100, Carbon Dioxide 23.0, Anion Gap 10, BUN 14, Creatinine 0.51 L, Estim Creat Clear Calc 181.74, Est GFR (MDRD) Af Amer 219, Est GFR (MDRD) Non-Af 181, BUN/Creatinine Ratio 27.6 H, Glucose 111 H, Calcium 8.9, Total Bilirubin 1.40 H, AST 17, ALT 35, Alkaline Phosphatase 165 H, Total Protein 6.9, Albumin 2.0 L, Globulin 4.9 H, Albumin/ Globulin Ratio 0.4 L Microbiology 03/11/21 08:55 Blood Culture (Wb) - Right Wrist Blood Culture - Preliminary No growth in 48 hours. 03/11/21 08:50 Blood Culture (Wb) - Anticubital Right Blood Culture - Preliminary No growth in 48 hours. Diagnostic Data Abdomen/Pelvis CT 03/10/21 13:11 IMPRESSION: Findings in keeping with a mild degree of pancreatitis. Small gallstones are seen in the dependent portion of the gallbladder lumen. Small amount of fluid is seen in the cul-de-sac. Electronically Signed: Cole Mann MD at 14:58 EST , Service support , Gallbladder Ultrasound 03/10/21 15:12 IMPRESSION: 1. Several small gallstones 2. Mildly enlarged liver. Electronically Signed: Jethro Porter MD at 16:54 EST , Service support , Chest X-Ray 03/10/21 17:17 IMPRESSION: Unchanged near whiteout of the left lung likely due to a combination of known left upper lobe lung mass with atelectasis versus pneumonia. Improved small left pleural effusion. Electronically Signed: Tutu Drake MD at 20:10 EST Tel , Service support ,
[2021-03-15] VITALS (7 sets, daily range): BP systolic 102–124; BP diastolic 62–76; PULSE 84–95; RESP 18–20; TEMP 36.1–37.3; O2SAT 87–95
[2021-03-15] MEDS: Piperacil/Tazobactam 3.375 GM/50 ML ML IV ×3 (05:51→22:23)
[2021-03-15 06:52] LABS: Absolute Lymphocyte Count 1.48 X10^3/uL (0.83-4.51); Absolute Neutrophil Count 34.3 X10^3/uL (2.0-7.7); Basophil# 0.07 X10^3/uL; Basophil% 0.2 % (0-1); Eosinophils% 8.3 % (0-5); Hematocrit 31.6 % (40-54); Hemoglobin 10.2 g/dL (13.0-16.5); Lymphocyte # 1.48 X10^3/ul (0.83-4.51); Lymphocyte % 3.5 % (19-41); Mean Corp Hgb Conc 32.3 g/dL (32-36); Mean Corpuscular Hgb 25.6 pg (27.0-32.0); Mean Corpuscular Volume 79.2 fL (80-94); Mean Platelet Vol. 9.6 fl (6.2-12.0); Monocyte# 1.91 X10^3/uL; Monocyte% 4.6 % (0-10); NRBC Flagged by Analyzer 0 % (0-5); Neutrophil # 34.29 X10^3/uL (2.7-7.7); Neutrophil % 82.1 % (47-70); POSITIVE COUNT YES; POSITIVE DIFFERENTIAL YES; Platelet Count 281 K/mm3 (150-450); RBC Distribution Width CV 14.4 % (11.6-14.6); RBC Distribution Width SD 41.7 fl (35.1-43.9); Red Blood Count 3.99 M/mm3 (4.6-6.2)
[2021-03-15 06:54] LABS: Eosinophil# 3.48 X10^3/uL
[2021-03-15 06:55] LABS: Differential Indicated SCAN CRITERIA MET; White Blood Count 41.8 K/mm3 (4.4-11.0)
[2021-03-15 07:13] LABS: Differential Comment SCANNED
[2021-03-15 07:17] LABS: ALB/GLOB Ratio 0.4 RATIO (0.9-2.4); AST(SGOT) 15 U/L (15-37); Alanine Aminotransfer ALT/SGPT 36 U/L (16-61); Alkaline Phosphatase 158 U/L (45-117); Anion Gap 8 (5-15); BUN 15 mg/dL (7-18); Calcium,Total 8.6 mg/dL (8.5-10.1); Chloride 99 mmol/L (98-107); Creatinine, Serum 0.52 mg/dL (0.70-1.30); EST Glomerular Filtration Rate 176 mL/min (>60); Est Glom Filt Rate - Afr Amer 213 mL/min (>60); Estimated Creatinine Clearance 178.25 ml/min; Globulin 4.8 g/dL (2.2-4.2); Glucose 103 mg/dL (74-106); Potassium 3.4 mmol/L (3.5-5.1); Protein, Total 6.8 g/dL (6.4-8.2); Sodium Level 133 mmol/L (136-145)
[2021-03-15 09:22] LABS: Pathologist Review Reviewed
[2021-03-15 09:46] LABS: Pathologist Review Reviewed
[2021-03-15] MEDS: dexAMETHasone 10 MG/ML Vial 6 MG IV (09:59)
[2021-03-15] MEDS: Fluticasone 0.05% 1 SPRAY NASAL.SRY NASAL (09:59)
[2021-03-15] MEDS: 0.9% Saline Lock 10 ML Syringe IV ×2 (10:00→16:18)
[2021-03-15] MEDS: Enoxaparin 30 MG/0.3 ML Syringe SC ×2 (10:00→21:05)
--- NOTE | 2021-03-15 11:17 | PN.HOSP_ITS ---
Subjective Subjective Continues to be doing well, states that he still breathing well however he still maintaining oxygen sats 5 L. We will continue to encourage incentive spirometry ambulation and proning Objective Data Objective Data Vital Signs: Vital Signs Temp Pulse Resp BP Pulse Ox 97 F L 93 20 H 116/68 94 03/15/21 09:57 03/15/21 09:57 03/15/21 09:57 03/15/21 09:57 03/15/21 09:57 Oxygen Flow Rate (L/min) 5 Oxygen Delivery Method Nasal Cannula Weight: 171 lb 8.314 oz Body Mass Index (BMI) 24.5 Intake & Output: Intake and Output for Last 24 Hours 03/14/21 03/15/21 03/16/21 03:59 03:59 03:59 Intake Total 370 / 370 1190 / 1190 350 / 350 Output Total 625 / 625 1050 / 1050 300 / 300 Balance -255 / -255 140 / 140 50 / 50 Medical Nutrition Assessment Dietitian: Malnutrition Criteria Met Start: 03/11/21 15:19 Freq: Status: Active Protocol: Document 03/11/21 15:20 RMA (Rec: 03/11/21 15:20 RMA [id number]) Nutrition Malnutrition Evidence of Malnutrition Exists Yes Malnutrition (severe): Acute Illness/Injury,Chronic Evidenced By Suboptimal Energy Intake ( Severe),Weight Loss (Severe) Clinical Problem Chronic Disease or Condition Related Malnutrition Etiology Severe protein/calorie malnutrition in the context of acute on chronic disease related to inadequate oral intake Signs/Symptoms as evidenced by 6% wt loss x 1 month and PO meeting less than 50-75% estimated nutrition needs Status Active Problem Recommendation Dietitian Recommendations/Changes Recommend advance diet as tolerated to Fat-Restricted. Will add 240ml ensure clear TID w/ meals. Lab / Micro Data Result Diagrams: 03/15/21 05:54 03/15/21 05:54 Labs: Laboratory Results - last 24 hr 03/12/21 08:51: Diff Path Review Reviewed 03/13/21 06:10: Diff Path Review Reviewed 03/15/21 05:54: WBC 41.8 H*, RBC 3.99 L, Hgb 10.2 L, Hct 31.6 L, MCV 79.2 L, MCH 25.6 L, MCHC 32.3, RDW Std Deviation 41.7, RDW Coeff of Yuki 14.4, Plt Count 281, MPV 9.6, Immature Gran % (Auto) 1.300 H, Neut % (Auto) 82.1 H, Lymph % (Auto) 3.5 L, [place] % (Auto) 4.6, Eos % (Auto) 8.3 H, Baso % (Auto) 0.2, Absolute Neuts (auto) 34.3 H, Absolute Lymphs (auto) 1.48, Nucleated RBC % 0, Differential Comment SCANNED, Diff Path Review July03/15/21 05:54: Sodium 133 L, Potassium 3.4 L, Chloride 99, Carbon Dioxide 26.0, Anion Gap 8, BUN 15, Creatinine 0.52 L, Estim Creat Clear Calc 178.25, Est GFR (MDRD) Af Amer 213, Est GFR (MDRD) Non-Af 176, BUN/Creatinine Ratio 29.0 H, Glucose 103, Calcium 8.6, Total Bilirubin 1.10 H, AST 15, ALT 36, Alkaline Phosphatase 158 H, Total Protein 6.8, Albumin 2.0 L, Globulin 4.8 H, Albumin/Globulin Ratio 0.4 L Micro: Microbiology 03/11/21 08:55 Blood Culture (Wb) - Right Wrist Blood Culture - Preliminary No growth in 48 hours. 03/11/21 08:50 Blood Culture (Wb) - Anticubital Right Blood Culture - Preliminary No growth in 48 hours. 03/11/21 10:40 Mucosa - Nasopharyngeal Respiratory Panel (PCR) - Final 03/11/21 10:30 Urine, Clean Catch Legionella Antigen - Final 03/11/21 10:30 Urine, Random Streptococcus pneumoniae Antigen (M - Final Physical Exam Const alert, oriented x3 and no apparent distress General Appearance: cooperative HEENT normocephalic and moist oral mucous membranes Eyes PERRL, EOMs intact bilaterally and conjunctivae normal Neck supple and no JVD Resp normal respiratory effort, no retractions and no use of accessory muscles Auscultation: diminished lung sounds; Negative for crackles, rales, rhonchi or wheezes Cardio regular rate, regular rhythm, S1 normal heart sound, S2 normal heart sound and no murmurs GI soft to palpation, non-tender and non-distended; Negative for hepatosplenomegaly Extremity no clubbing, cyanosis or edema Skin no rashes or lesions noted Neuro no focal motor deficits and no sensory deficits noted Psych affect normal Appearance: appropriate Assessment & Plan Assessment/Plan (1) COVID-19: (2) Acute pancreatitis: QUALIFIERS: Pancreatitis type: biliary Acute pancreatitis complication: no infection or necrosis Qualified Code(s): K85.10 - Biliary acute pancreatitis without necrosis or infection PLAN: 1. Acute pancreatitis probably biliary pancreatitis: The patient is being admitted on [facility] floor. Discussed with the surgeon Dr. Andrews. CT abdomen and GB sonogram reviewed. It seems there is no features of acute cholecystitis as per ultrasound but several dependent gallstones. Started on IV fluid Ringer lactate 100 mill per hour for 2 L. BUN 13, creatinine 0.65. 03/11: IV fluids decreased to 75 mill per hour for 500 ml and then stop. Started on clear liquid diet. Restricted IV fluid approach in view of Covid infection and left lung whiteout with left lung history, postobstructive pneumonia, atelectasis possible effusion. Discussed with the surgeon. No features of acute cholecystitis therefore advised outpatient follow-up after Covid isolation. 03/11: Continue IV fluid. Keep n.p.o. until abdominal pain subsides. 03/13: IV fluid Ringer lactate 1 L at 75 mill per hour. Continue clear liquid diet. Lipase is decreasing 03/14/2021: Given the resolution of his abdominal pain, will start him on a full liquid diet and if he is able to maintain his p.o. intake, will remove his IV fluids 03/15/2021: Abdominal pain is still improved therefore can advance his diet and see how he does 2. Stage IV NSCLC adenocarcinoma histology With postobstructive pneumonia:. Left lung NSCLC adenocarcinoma with wide metastasis to bones and adrenal gland. Chest x-ray shows left lung whiteout similar to previous chest x-ray. I reviewed previous office note of Dr. Nava. Brain MRI no acute finding. As per his documentation is stage IV (T4, N3, M1) metastatic left lung NSCLC adenocarcinoma histology. And that there is small left pleural effusion. PET scan shows viable skeletal metastatic disease and adrenal gland. Poor prognosis. Currently patient is following [facility] oncologist and as per patient he visited first time last week. Currently not on any therapeutic/palliative medication for cancer. 03/13: Discussed with Dr. Lanier we agreed to see tomorrow. Consult requested. Discussed about the rising WBC count mainly neutrophils and complex history of adenocarcinoma with postobstructive pneumonia and COVID-19 pneumonia. 03/14/2021: Updated follow-up with the oncologist [facility] in clinic main campus and they have recommended therapy however he does not qualify for treatment at this time while he has active Covid and pancreatitis once this is resolved and he can initiate chemotherapy 3. Recent COVID-19 symptoms with recent postobstructive pneumonia, high pos sibility of bacterial superinfection:It is hard to ascertain onset of symptoms of COVID-19 as he was before having postobstructive pneumonia from lung cancer. Patient is started on dexamethasone 6 mg IV daily. He is not a candidate of remdesivir because of ongoing pancreatitis, lung cancer and uncertainty of time period of onset of symptoms. Continue incentive spirometry, Pep. Robitussin as needed for cough. 03/11: Patient had fever temperature 101.5 ?F. DC Levaquin and start Zosyn. WBC count high, immature granulocytes 2.3 thousand. Possible complicated with cancer history and pneumonia. Blood cultures x2 ordered. Urinary antigens are negative. Procalcitonin 0.26, less than 0.5 mentions no_progression to severe sepsis or septic shock. CRP elevated. LDH and CK normal 03/12: Respiratory panel negative. Blood cultures x2 are pending. 03/14/2021: He has increasing oxygen requirements will continue new Zosyn for the possibility of bacterial superinfection given his lung mass and Covid infection. We will continue with Decadron 03/15/2021: Continues to maintain oxygen saturations on 5 L nasal cannula. We will continue with his Zosyn as well as interventions for Covid. Once able to maintain his oxygen with ambulation less than 6 L can consider discharge 4 COPD: Patient had PFT done on 02/18/2021 which shows a reversible moderate large airway obstructive ventilatory defect with preserved lung volumes and mild reduction in diffusion capacity. Bronchodilator as needed. DVT: Lovenox Charges/Coding Visit Charges Inpatient E&M: 16374 Subs Hosp L2
[2021-03-16] VITALS (7 sets, daily range): BP systolic 111–116; BP diastolic 63–74; PULSE 81–87; RESP 18; TEMP 36.1–36.6; O2SAT 87–96
[2021-03-16] MEDS: Acetaminophen 325 MG Tablet 650 MG PO (03:01)
[2021-03-16] MEDS: Piperacil/Tazobactam 3.375 GM/50 ML ML IV (05:49)
[2021-03-16 07:04] LABS: Absolute Lymphocyte Count 1.65 X10^3/uL (0.83-4.51); Absolute Neutrophil Count 28.4 X10^3/uL (2.0-7.7); Basophil# 0.08 X10^3/uL; Basophil% 0.2 % (0-1); Eosinophils% 10.8 % (0-5); Hematocrit 31.8 % (40-54); Lymphocyte # 1.65 X10^3/ul (0.83-4.51); Lymphocyte % 4.5 % (19-41); Mean Corp Hgb Conc 31.4 g/dL (32-36); Mean Corpuscular Hgb 24.9 pg (27.0-32.0); Mean Corpuscular Volume 79.3 fL (80-94); Mean Platelet Vol. 9.5 fl (6.2-12.0); Monocyte# 1.76 X10^3/uL; Monocyte% 4.8 % (0-10); NRBC Flagged by Analyzer 0 % (0-5); Neutrophil # 28.36 X10^3/uL (2.7-7.7); POSITIVE COUNT YES; POSITIVE DIFFERENTIAL YES; Platelet Count 269 K/mm3 (150-450); RBC Distribution Width CV 14.4 % (11.6-14.6); RBC Distribution Width SD 41.8 fl (35.1-43.9); Red Blood Count 4.01 M/mm3 (4.6-6.2)
[2021-03-16 07:08] LABS: Eosinophil# 3.95 X10^3/uL
[2021-03-16 07:10] LABS: Differential Indicated SCAN CRITERIA MET; White Blood Count 36.4 K/mm3 (4.4-11.0)
[2021-03-16 07:27] LABS: Anion Gap 9 (5-15); BUN 16 mg/dL (7-18); BUN/Creat Ratio 30.4 RATIO (10-20); Calcium,Total 8.8 mg/dL (8.5-10.1); Chloride 101 mmol/L (98-107); Creatinine, Serum 0.53 mg/dL (0.70-1.30); EST Glomerular Filtration Rate 173 mL/min (>60); Est Glom Filt Rate - Afr Amer 209 mL/min (>60); Estimated Creatinine Clearance 174.21 ml/min; Glucose 108 mg/dL (74-106); Potassium 3.3 mmol/L (3.5-5.1); Sodium Level 135 mmol/L (136-145)
[2021-03-16 09:38] LABS: Pathologist Review Reviewed
[2021-03-16] MEDS: dexAMETHasone 10 MG/ML Vial 6 MG IV (09:46)
[2021-03-16] MEDS: Enoxaparin 30 MG/0.3 ML Syringe SC (09:47)
[2021-03-16] MEDS: Fluticasone 0.05% 1 SPRAY NASAL.SRY NASAL (09:47)
[2021-03-16 09:48] LABS: Pathologist Review Reviewed
[2021-03-16] MEDS: Potassium Chloride Oral Tablet 20 MEQ 60 MEQ PO (10:01)
--- NOTE | 2021-03-16 10:18 | DCINST_ITS ---
Discharge Instructions Diet Discharge Diet: No restrictions Activity Discharge Activity: Return to Normal Activity Dressing / Incision Call your doctor if you observe: Fever of 101 or Higher, Shortness of breath, Dizziness, Fainting spells, Swelling in the ankles, Chest pain and Increased palpitations (irregular heartbeat) Follow Up Care Test Results: Test results from this visit will be discussed in further detail at your follow-up appointment, if applicable. Discharge Plan Admission Admit Date/Time: 03/10/21 17:21 Attending Provider: Buck Engle Primary Care Provider: Saulo Cooney Consulting Providers: Mimi Andrews ; Juwan Suero ; Marilee Ernst ; Merrill Rordigez ; Patrick Ellison ; Saulo Lanier Discharge Orders/Prescriptions Prescriptions: New levofloxacin 750 mg tablet 750 mg PO DAILY Qty: 10 RF: 0 Continued ondansetron HCl [Zofran] 4 mg tablet 4 mg PO Q8H RF: 0 dexamethasone [Decadron] 6 mg tablet 6 mg PO DAILY Qty: 9 RF: 0 omeprazole 40 mg Capsule,Delayed Release(Dr/Ec) 40 mg PO DAILY RF: 0 fluticasone propionate 50 mcg/actuation [place],Suspension 1 spray INTRANASAL BID RF: 0 Discontinued benzonatate 100 mg capsule 100 mg PO BID-TID PRN (Reason: Cough) RF: 0 levofloxacin 500 mg tablet 500 mg PO DAILY RF: 0 Referrals / Follow Up: Saulo Lanier DO [STAFF PHYSICIAN] - Within 1 Month Saulo Cooney MD [Primary Care Provider] - Within 1 Week Disposition Disposition (needs filled in before D/C Order can be placed): Home, Self Care
--- NOTE | 2021-03-16 10:22 | DS.PCM_ITS ---
Providers Date of Admission: 03/10/21 Primary Care Physician: Dr. Saulo Cooney MD Consultations 03/10/21 19:39 Consult: General Surgery Routine Consulting Provider: Mimi Andrews Reason for Consult: acute GB pancreatitis EMERGENT Consult: No Notified: Yes Date Notified: 03/10/21 Time Notified: 16:45 Method of Notification: Verbal 03/13/21 12:06 Consult: Oncology/Hematology Routine Consulting Provider: [facility] Angelita Reason for Consult: Increasing wbc, polymorphs in lung cancer. Consult for 03/14 EMERGENT Consult: No Notified: Yes Date Notified: 03/13/21 Time Notified: 12:06 Method of Notification: Verbal Reason For Visit: PANCREATITIS WITH COVID Diagnosis Discharge Diagnosis (1) COVID-19: Status: Acute Code(s): U07.1 - COVID-19 (2) Acute pancreatitis: Status: Acute Code(s): K85.90 - Acute pancreatitis without necrosis or infection, unspecified Qualifiers: Pancreatitis type: biliary Acute pancreatitis complication: no infection or necrosis Qualified Code(s): K85.10 - Biliary acute pancreatitis without necrosis or infection Medications at Discharge Home Medications ondansetron HCl 4 mg tablet 4 mg PO Q8H 03/03/21 dexamethasone [Decadron] 6 mg PO DAILY #9 tab 03/07/21 fluticasone propionate 1 spray INTRANASAL BID 03/10/21 omeprazole 40 mg PO DAILY 03/10/21 levofloxacin 750 mg PO DAILY #10 tab 03/16/21 Hospital Course Operations None Procedures None Summary of Care Provided Minutes Spent on Discharge: 38 Hospital Course: Per HPI: MARIKA SCALES, is a 55 M with history of lung cancer, left lung with encasement of mediastinum and adjacent to structure, non-small cell lung cancer adenocarcinoma, recent diagnosis in January 2021 came to ED for abdominal pain mainly epigastric region and then became generalized for last 2 to 3 days. Patient also has been vomiting for last 2 to 3 days and has diarrhea. Prior to that he came to ED on past Sunday on 03/07/2021 after syncopal episode. Patient complaining of right-sided chest tightness past couple days. At that time patient was found COVID-19 positive. CTA chest reveals bilateral pleural effusion left upper lobe mass not significantly changed but new left lower lobe consolidation. Patient was recommended hospitalization but he refused. He was given prescription for Decadron. He also declined monoclonal antibodies and asked for prescription ivermectin which was declined. In ED, hemodynamic parameters are in acceptable limit. Pulse ox 95% on room air. No tachypnea. The lipase is found elevated, 16,170. Clinically and biochemically, diagnosed acute pancreatitis. Patient denied any previous episode of pancreatitis. He occasionally drinks. Never had acute abdomen/acute cholecystitis episode. CT abdomen pelvis was done which showed mild degree of pancreatitis small gallstones in the dependent portion of [place]. Gallbladder ultrasound shows several small gallstones but GB wall 1.9 mm, negative sonographic Melendez sign, no pericholecystic fluid. CBD 4 mm. 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 I think she gave because of concern of abdominal pain probably due to worms. At this time, patient is nurse advocate and agreed for admission admission. Hospital Course: 1. Acute pancreatitis probably biliary pancreatitis: The patient is being admitted on [facility] floor. Discussed with the surgeon Dr. Andrews. CT abdomen and GB sonogram reviewed. It seems there is no features of acute cholecystitis as per ultrasound but several dependent gallstones. Started on IV fluid Ringer lactate 100 mill per hour for 2 L. BUN 13, creatinine 0.65. 03/11: IV fluids decreased to 75 mill per hour for 500 ml and then stop. Started on clear liquid diet. Restricted IV fluid approach in view of Covid infection and left lung whiteout with left lung history, postobstructive pneumonia, atelectasis possible effusion. Discussed with the surgeon. No features of acute cholecystitis therefore advised outpatient follow-up after Covid isolation. 03/11: Continue IV fluid. Keep n.p.o. until abdominal pain subsides. 03/13: IV fluid Ringer lactate 1 L at 75 mill per hour. Continue clear liquid diet. Lipase is decreasing 03/14/2021: Given the resolution of his abdominal pain, will start him on a full liquid diet and if he is able to maintain his p.o. intake, will remove his IV fluids 03/15/2021: Abdominal pain is still improved therefore can advance his diet and see how he does 03/16/2021: Abdominal pain has completely resolved and he is tolerating a regular diet without issue. I do recommend outpatient follow-up for possibly an elective cholecystectomy secondary to the dependent gallstones seen on CT scan and his gallbladder ultrasound 2. Stage IV NSCLC adenocarcinoma histology With postobstructive pneumonia:. Left lung NSCLC adenocarcinoma with wide metastasis to bones and adrenal gland. Chest x-ray shows left lung whiteout similar to previous chest x-ray. I reviewed previous office note of Dr. Nava. Brain MRI no acute finding. As per his documentation is stage IV (T4, N3, M1) metastatic left lung NSCLC adenocarcinoma histology. And that there is small left pleural effusion. PET scan shows viable skeletal metastatic disease and adrenal gland. Poor prognosis. Currently patient is following [facility] oncologist and as per patient he visited first time last week. Currently not on any therapeutic/ palliative medication for cancer. 03/13: Discussed with Dr. Lanier we agreed to see tomorrow. Consult requested. Discussed about the rising WBC count mainly neutrophils and complex history of adenocarcinoma with postobstructive pneumonia and COVID-19 pneumonia. 03/14/2021: Updated follow-up with the onc[facility] [place] and they have recommended therapy however he does not qualify for treatment at this time while he has active Covid and pancreatitis once this is resolved and he can initiate chemotherapy 03/16/2021: White count has improved, will plan for discharge today on 10 more days of Levaquin and have him follow-up as an outpatient with his primary care provider. 3. Recent COVID-19 symptoms with recent postobstructive pneumonia, high possibility of bacterial superinfection:It is hard to ascertain onset of symptoms of COVID-19 as he was before having postobstructive pneumonia from lung cancer. Patient is started on dexamethasone 6 mg IV daily. He is not a candidate of remdesivir because of ongoing pancreatitis, lung cancer and uncertainty of time period of onset of symptoms. Continue incentive spirometry, Pep. Robitussin as needed for cough. 03/11: Patient had fever temperature 101.5 ?F. DC Levaquin and start Zosyn. WBC count high, immature granulocytes 2.3 thousand. Possible complicated with cancer history and pneumonia. Blood cultures x2 ordered. Urinary antigens are negative. Procalcitonin 0.26, less than 0.5 mentions no_progression to severe sepsis or septic shock. CRP elevated. LDH and CK normal 03/12: Respiratory panel negative. Blood cultures x2 are pending. 03/14/2021: He has increasing oxygen requirements will continue new Zosyn for the possibility of bacterial superinfection given his lung mass and Covid infection. We will continue with Decadron 03/15/2021: Continues to maintain oxygen saturations on 5 L nasal cannula. We will continue with his Zosyn as well as interventions for Covid. Once able to maintain his oxygen with ambulation less than 6 L can consider discharge 03/16/2021: Today with an ambulatory pulse ox, needed 4 L nasal cannula to maintain his oxygen saturations around 90%. I discussed with him and his the possibility for discharge today and he expressed understanding of the risk benefits going home and they would like to go home today. Will resume his home Decadron to complete a total 10-day course of steroids. And will continue with Levaquin for the potential postobstructive pneumonia. I recommend he follow-up with his PCP in 3 to 5 days for outpatient follow-up and management. He is also communicated with his oncologist and they anticipate being able to initiate treatment in 2 to 3 weeks assuming that he continues to improve from a respiratory standpoint. 4 COPD: Patient had PFT done on 02/18/2021 which shows a reversible moderate large airway obstructive ventilatory defect with preserved lung volumes and mild reduction in diffusion capacity. Bronchodilator as needed. Physical Exam Const alert, oriented x3 and no apparent distress General Appearance: cooperative HEENT normocephalic and moist oral mucous membranes Eyes PERRL, EOMs intact bilaterally and conjunctivae normal Neck supple and no JVD Resp normal respiratory effort, no retractions and no use of accessory muscles Auscultation: diminished lung sounds; Negative for crackles, rales, rhonchi or wheezes Cardio regular rate, regular rhythm, S1 normal heart sound, S2 normal heart sound and no murmurs GI soft to palpation, non-tender and non-distended; Negative for hepatosplenomegaly Extremity no clubbing, cyanosis or edema Skin no rashes or lesions noted Neuro no focal motor deficits and no sensory deficits noted Psych affect normal Appearance: appropriate Medical Records Data Medical Nutrition Assessment Dietitian: Malnutrition Criteria Met Start: 03/11/21 15:19 Freq: Status: Active Protocol: Document 03/11/21 15:20 RMA (Rec: 03/11/21 15:20 RMA [id number]) Nutrition Malnutrition Evidence of Malnutrition Exists Yes Malnutrition (severe): Acute Illness/Injury,Chronic Evidenced By Suboptimal Energy Intake ( Severe),Weight Loss (Severe) Clinical Problem Chronic Disease or Condition Related Malnutrition Etiology Severe protein/calorie malnutrition in the context of acute on chronic disease related to inadequate oral intake Signs/Symptoms as evidenced by 6% wt loss x 1 month and PO meeting less than 50-75% estimated nutrition needs Status Active Problem Recommendation Dietitian Recommendations/Changes Recommend advance diet as tolerated to Fat-Restricted. Will add 240ml ensure clear TID w/ meals. Weight / BMI Weight Weight: 170 lb 6.677 oz Body Mass Index (BMI) 24.5 ABG / Lab / Microbiology Data Result Diagrams: 03/16/21 06:35 03/16/21 06:35 Laboratory: Laboratory Results - last 24 hr 03/14/21 07:35: Diff Path Review Reviewed 03/15/21 05:54: Diff Path Review Reviewed 03/16/21 06:35: WBC 36.4 H*, RBC 4.01 L, Hgb 10.0 L, Hct 31.8 L, MCV 79.3 L, MCH 24.9 L, MCHC 31.4 L, RDW Std Deviation 41.8, RDW Coeff of Yuki 14.4, Plt Count 269, MPV 9.5, Immature Gran % (Auto) 1.700 H, Neut % (Auto) 78.0 H, Lymph % (Auto) 4.5 L, [place] % (Auto) 4.8, Eos % (Auto) 10.8 H, Baso % (Auto) 0.2, Absolute Neuts (auto) 28.4 H, Absolute Lymphs (auto) 1.65, Nucleated RBC % 0, Diff Path Review May 03/16/21 06:35: Sodium 135 L, Potassium 3.3 L, Chloride 101, Carbon Dioxide 25.0, Anion Gap 9, BUN 16, Creatinine 0.53 L, Estim Creat Clear Calc 174.21, Est GFR (MDRD) Af Amer 209, Est GFR (MDRD) Non-Af 173, BUN/Creatinine Ratio 30.4 H, Glucose 108 H, Calcium 8.8 Microbiology: Microbiology 03/11/21 08:50 Blood Culture (Wb) - Anticubital Right Blood Culture - Final No growth in 5 days. 03/11/21 08:55 Blood Culture (Wb) - Right Wrist Blood Culture - Final No growth in 5 days. 03/11/21 10:40 Mucosa - Nasopharyngeal Respiratory Panel (PCR) - Final 03/11/21 10:30 Urine, Clean Catch Legionella Antigen - Final 03/11/21 10:30 Urine, Random Streptococcus pneumoniae Antigen (M - Final D/C Instructions Discharge Diet: No restrictions Call your doctor if you observe: Fever of 101 or Higher, Shortness of breath, Dizziness, Fainting spells, Swelling in the ankles, Chest pain and Increased palpitations (irregular heartbeat) Meaningful Use Info Meaningful Use Diagnoses (Choose all that apply): None applicable Discharge Plan Admission Admit Date/Time: 03/10/21 17:21 Attending Provider: Buck Engle Primary Care Provider: Saulo Cooney Consulting Providers: Mimi Andrews ; Juwan Suero ; Marilee Ernst ; Merrill Rodrigez ; Patrick Ellison ; Saulo Lanier Discharge Orders/Prescriptions Prescriptions: New levofloxacin 750 mg tablet 750 mg PO DAILY Qty: 10 RF: 0 Continued ondansetron HCl [Zofran] 4 mg tablet 4 mg PO Q8H RF: 0 dexamethasone [Decadron] 6 mg tablet 6 mg PO DAILY Qty: 9 RF: 0 omeprazole 40 mg Capsule,Delayed Release(Dr/Ec) 40 mg PO DAILY RF: 0 fluticasone propionate 50 mcg/actuation [place],Suspension 1 spray INTRANASAL BID RF: 0 Discontinued benzonatate 100 mg capsule 100 mg PO BID-TID PRN (Reason: Cough) RF: 0 levofloxacin 500 mg tablet 500 mg PO DAILY RF: 0 Referrals / Follow Up: Saulo Lanier DO [STAFF PHYSICIAN] - Within 1 Month Saulo Cooney MD [Primary Care Provider] - Within 1 Week Disposition Disposition (needs filled in before D/C Order can be placed): Home, Self Care Charges/Coding Visit Charges Inpatient E&M: 80713 Disch Hosp
--- NOTE | 2021-03-16 11:00 | CASEMGMT ---
Addendum entered by Sarah Antoine 03/16/21 12:08: TC to [facility], spoke with Shauna. She is aware pt will be going to [place] at some point. She states pt just needs to notify them in advance so they can contact the [facility] closest to where pt is staying. Added to dc plan. Faxed O2 script to [facility] and Shauna is aware that pt will need portable O2 to go home on delivered to the hospital. Original Note: RN CM notified that pt was requesting [employer] to be set up for O2 and that pt would like to be able to travel on the plane with O2 to go to [place]. TC to [facility], they do not have companies in [place]. TC to [facility], they do have branches in [place], but do not have portable O2 concentrators to take on the plane as they are out. Natan recommended [facility]. TC to [facility] who states they only do self pay and do not bill insurance. They do have portable O2 concentrators and the patient will need a script. They rent for $300/month. Spoke with pt hospitalist, who requests pt PCP write rx for the portable O2 concentrator when pt is out of isolation. RN CM in to pt room, nurse Bria also present in room. Pt at bedside. Discussed O2 and that this RN CM can set them up with [facility] as they have branches in [place]. Pt and agreeable to this. Pt and state they did not know that pt was going to be in isolation for greater than 10 days. They are aware that their PCP will need to write for the portable O2 concentrator. Pt states she will contact their patient advocate. She is aware to ask for the RN CM if she should have any further questions. Pt/ deny further needs.
--- NOTE | 2021-03-16 14:48 | NURSING ---
230 Iv removed. Discharge instructions gone over with and patient. [facility] pharmacy sent meds up to the floor for discharge. has them.
[2021-03-17 09:41] LABS: Pathologist Review Reviewed
== END 2021-03-16 14:45 | disposition home or self-care (01) | DRG 438 ==
LOC: ED 12:59 → MS3 17:31
PROVIDERS: Nurse Practitioner Family; Surgery; Admitting Provider Internal Medicine; Emergency Provider Emergency Medicine; PCP Family Medicine; Visit Provider Family Medicine
DX: K85.10 Biliary acute pancreatitis without necrosis or infection (principal); E43 Unspecified severe protein-calorie malnutrition; J96.01 Acute respiratory failure with hypoxia; U07.1 COVID-19; J18.9 Pneumonia, unspecified organism; J12.82 Pneumonia due to coronavirus disease 2019; C34.92 Malignant neoplasm of unspecified part of left bronchus or lung; C77.9 Secondary and unspecified malignant neoplasm of lymph node, unspecified; C79.51 Secondary malignant neoplasm of bone; C79.70 Secondary malignant neoplasm of unspecified adrenal gland; J90 Pleural effusion, not elsewhere classified; J44.0 Chronic obstructive pulmonary disease with (acute) lower respiratory infection; Z68.24 Body mass index [BMI] 24.0-24.9, adult; Z87.891 Personal history of nicotine dependence
CPT/HCPCS: 36415; 71045; 74177; 76705; 80048; 80053; 81001; 82550; 83615; 83690; 83735; 84100; 84145; 85025; 86140; 87040; 87449; 87633; 87635; 87641; 94762; 97161; 97166; 99251; 99284; J7030; J7050; J7120; Q9967; U0005; A4216; G0463; J2405; U0003

== ENCOUNTER 2021-04-25 11:26 | Emergency (ER) | payer OTHER, SELFPAY ==
[2021-04-25 11:27] VITALS: BP 66/38; PULSE 88; RESP 18; TEMP 35.4; O2SAT 97; BMI 20.3
[2021-04-25] MEDS: 0.9% Normal Saline 1,000 ML 2000 ML IV (12:10)
[2021-04-25 12:46] LABS: ALB/GLOB Ratio 0.6 RATIO (0.9-2.4); AST(SGOT) 75 U/L (15-37); Alanine Aminotransfer ALT/SGPT 49 U/L (16-61); Albumin, Serum 2.4 g/dL (3.2-5.0); Alkaline Phosphatase 706 U/L (45-117); Anion Gap 27 (5-15); BUN 127 mg/dL (7-18); BUN/Creat Ratio 17.6 RATIO (10-20); Calcium,Total 8.4 mg/dL (8.5-10.1); Chloride 74 mmol/L (98-107); Creatinine, Serum 7.21 mg/dL (0.70-1.30); EST Glomerular Filtration Rate 8 mL/min (>60); Est Glom Filt Rate - Afr Amer 10 mL/min (>60); Estimated Creatinine Clearance 11.14 ml/min; Globulin 3.7 g/dL (2.2-4.2); Glucose 103 mg/dL (74-106); Lipase 16 U/L (73-393); Magnesium 5.1 mg/dL (1.6-2.6); Phosphorus 8.4 mg/dL (2.5-4.9); Potassium 5.8 mmol/L (3.5-5.1); Protein, Total 6.1 g/dL (6.4-8.2); Sodium Level 123 mmol/L (136-145)
--- NOTE | 2021-04-25 12:46 | ED.RN ---
LAB CALLED CRITICAL OF CHLORIDE 74, BUN [address] ARRIETA
[2021-04-25 12:55] LABS: Absolute Lymphocyte Count 2.68 X10^3/uL (0.83-4.51); Absolute Neutrophil Count 42.5 X10^3/uL (2.0-7.7); Basophil# 0.18 X10^3/uL; Basophil% 0.3 % (0-1); Hematocrit 24.3 % (40-54); Hemoglobin 7.8 g/dL (13.0-16.5); Lymphocyte # 2.68 X10^3/ul (0.83-4.51); Lymphocyte % 4.9 % (19-41); Mean Corp Hgb Conc 32.1 g/dL (32-36); Mean Corpuscular Hgb 27.1 pg (27.0-32.0); Mean Corpuscular Volume 84.4 fL (80-94); Mean Platelet Vol. 10.6 fl (6.2-12.0); Monocyte# 2.12 X10^3/uL; Monocyte% 3.9 % (0-10); NRBC Flagged by Analyzer 0.1 % (0-5); Neutrophil # 42.53 X10^3/uL (2.7-7.7); Neutrophil % 78.3 % (47-70); POSITIVE COUNT YES; POSITIVE DIFFERENTIAL YES; POSITIVE MORPHOLOGY YES; Platelet Count 96 K/mm3 (150-450); RBC Distribution Width CV 24.3 % (11.6-14.6); RBC Distribution Width SD 68.5 fl (35.1-43.9); Red Blood Count 2.88 M/mm3 (4.6-6.2)
[2021-04-25 12:56] VITALS: BP 83/59; PULSE 89; RESP 18; TEMP 35.9; O2SAT 97
[2021-04-25 13:03] LABS: Eosinophil# 4.88 X10^3/uL
[2021-04-25 13:04] LABS: White Blood Count 54.3 K/mm3 (4.4-11.0)
[2021-04-25 13:05] LABS: Differential Indicated SCAN CRITERIA MET
[2021-04-25 13:17] LABS: Lactic Acid 3.3 mmol/L (0.4-1.9)
--- NOTE | 2021-04-25 13:18 | ED.RN ---
critical lactate 3.3 received from lab. aware.
[2021-04-25 13:27] LABS: Hypochromasia 1+; Platelet Estimate MOD DEC (ADEQ)
--- NOTE | 2021-04-25 13:55 | EDS_ITS ---
HPI History of Present Illness Chief Complaint: Nausea/Vomiting/Diarrhea Informant: patient Narrative Narrative: 56-year-old male presenting to the emergency department with dehydration. 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 He is sought opinions by [facility] and [facility] oncology. They tell me that there was no option for radiation chemotherapy or surgery. They were waiting on immunotherapy drug. In the interim he had gone to [place] to receive hydrogen peroxide and other vitamin infusions. While there he had pneumonia required a biliary stent. They flew home last week as the immunotherapy drug was going to be here. However after looking at the side effect profile they are hesitant to take it. Over the weekend he really was not eating or drinking anything and now he is not making any urine. He was seen at gastroenterology office today as they thought they were going to be getting a PEG tube today. However it was an initial visit. That office sent him to the emergency room. 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 present Shortness of breath on exertion Home Medications NK 04/25/21 [History Last Taken Unknown] Allergy/AdvReac Type Severity Reaction Status Date / Time No Known Allergies Allergy Verified 04/25/21 12:55 Family History Mother Diabetes Surgical History History of lung biopsy Social History household members: spouse Smoking Status: Former smoker quit date: 03/26/79 pack-years: 2 Tobacco: How many years used: 2 second hand exposure: No details: occasionally substance use type: does not use radha/presybeterian: Sabianism seatbelt use: always do you feel safe at home: Yes ROS ROS ED ROS Narrative Fatigue Constitutional Constitutional ED: Denies chills, fever(s) or weight loss Eyes Eyes: Denies change in vision or diplopia ENT ENT ED: Denies ear pain, rhinorrhea or sore throat Cardiovascular Cardiovascular: Denies chest pain, orthopnea, palpitations or racing heartbeat Respiratory/Chest Respiratory/Chest: Denies cough, dyspnea or orthopnea Gastrointestinal Gastrointestinal: Reports abdominal pain; Denies diarrhea, nausea or vomiting Genitourinary Genitourinary ED: Reports other Details: Decreased urination ; Denies dysuria, hematuria or urinary frequency Musculoskeletal Musculoskeletal: Denies arthralgias or myalgias Integumentary Denies abscess or rash Neurologic Neurologic: Denies headache(s) or weakness Psychiatric Psychiatric: Denies anxiety, depression, suicidal ideation or suicidal thoughts Endocrine Endocrinology: Denies polydipsia, polyphagia or polyuria Allergic/Immunologic Allergic/Immunologic ED: Denies mouth swelling, tongue swelling or urticaria EXAM Physical Exam Const Vital Signs: 04/25/21 11:27 04/25/21 12:56 Temperature 95.7 F L 96.7 F L Temperature Source Temporal Temporal Pulse Rate 88 89 Respiratory Rate 18 18 Blood Pressure 66/38 L 83/59 L Blood Pressure Mean 47 67 Pulse Ox 97 97 Oxygen Delivery Method Nasal Cannula Nasal Cannula Oxygen Flow Rate (L/min) 5 5 Positive well nourished and well developed General Appearance ED: well developed HEENT Reports normocephalic, head/scalp atraumatic and dry mucous membranes Negative for trauma Mouth ED: Yes dry mucous membranes Mouth: dry mucous membranes Eyes PERRL and EOMs intact bilaterally Neck no lymphadenopathy, supple and no JVD Resp normal respiratory effort and clear to auscultation bilaterally Cardio regular rate, regular rhythm and no murmurs GI Inspection: abdominal distention Palpation: soft and tender Back/Spine no CVA tenderness and normal ROM Extremity normal to inspection General Extremety ED: Negative for edema General Extremity: Negative for edema Neuro oriented x3 and CN's II-XII intact bilaterally Sensorium / Orientation: lethargic Psych Mood & Affect: depressed; Negative for tearful Skin no wounds General Skin Exam: jaundice MDM MDM MDM Narrative Medical decision making narrative: White blood cell count is 54.3 with a hemoglobin of 7.8 and a platelet count of 96. Sodium 123 potassium 5.8 chloride 74 anion gap of 27 and a BUN of 127. Creatinine substantially elevated at 7.21. Lactic acid 3.3. Magnesium 5.1 total bili at 2.5 alk phos 706. Patient received 2 L of IV fluids followed by maintenance. Blood pressure has improved to 89/42. I presented multiple options of care to the patient and his . I do not believe based on what they have told me that the are wanting him to go to the ICU which is where he would need to go at the current time but there is restricted visiting. They do not want to have restricted visiting. We talked about hospice/palliative care. The plan will be to have hospice come visit with the patient as I think that is more appropriate because I do not feel that he has a long lifeline and we should focus in on quality of life. Lab Data Attestation: I reviewed the patient's lab results. Labs: Laboratory Results - last 24 hr 04/25/21 04/25/21 04/25/21 12:10 12:10 12:10 WBC 54.3 H* RBC 2.88 L Hgb 7.8 L Hct 24.3 L MCV 84.4 MCH 27.1 MCHC 32.1 RDW Std Deviation 68.5 H RDW Coeff of Yuki 24.3 H Plt Count 96 L MPV 10.6 Immature Gran % (Auto) 3.600 H Neut % (Auto) 78.3 H Lymph % (Auto) 4.9 L Crosby % (Auto) 3.9 Eos % (Auto) 9.0 H Baso % (Auto) 0.3 Absolute Neuts (auto) 42.5 H Absolute Lymphs (auto) 2.68 Nucleated RBC % 0.1 Diff Path Review May foll Platelet Estimate MOD DEC Hypochromasia 1+ Sodium 123 L Potassium 5.8 H Chloride 74 L* Carbon Dioxide 22.0 Anion Gap 27 H BUN 127 H* Creatinine 7.21 H Estim Creat Clear Calc 11.14 Est GFR (MDRD) Af Amer 10 L Est GFR (MDRD) Non-Af 8 L BUN/Creatinine Ratio 17.6 Glucose 103 Lactic Acid 3.3 H* Calcium 8.4 L Phosphorus 8.4 H Magnesium 5.1 H* Total Bilirubin 2.50 H AST 75 H ALT 49 Alkaline Phosphatase 706 H Total Protein 6.1 L Albumin 2.4 L Globulin 3.7 Albumin/Globulin Ratio 0.6 L Lipase 16 L Critical Care Time Critical Care Time: Yes Critical care time (excluding procedures): 30-74 minutes (45), Including time spent:, Discussing w/Patient &/or Family/Quality Manager, Discussing w/Consultants, Arranging Admission or Transfer and Performing Direct Patient Care at Bedside Discharge Plan Triage Chief Complaint: Nausea/Vomiting/Diarrhea ED Provider: Lazaro Joshi Dx/Rx/DC Orders Clinical Impression: Primary adenocarcinoma of left lung, Acute renal failure, Acute uremia, Acute hyperkalemia, Acute hyponatremia, Hypermagnesemia, Anemia, Acute dehydration, Acute hypotension Prescriptions: No Action NK RF: 0 Primary Care Provider: Saulo Cooney Referrals: Saulo Cooney MD [Primary Care Provider] -
[2021-04-25 14:22] VITALS: BP 89/42; PULSE 89; RESP 14; TEMP 35.9; O2SAT 94
[2021-04-25] MEDS: 0.9% Normal Saline 1,000 ML 250 ML IV (14:38)
[2021-04-25] MEDS: Ondansetron 4 MG/2 ML Vial IV (14:38)
[2021-04-25] MEDS: Morphine 4 MG/ML Syringe IV (14:38)
--- NOTE | 2021-04-25 14:49 | NURSING ---
FAXED CHART TO HOSPICE
[2021-04-25 16:23] LABS: Reflex Lactate? Y
[2021-04-25 17:00] VITALS: BP 94/49; PULSE 72; RESP 16; O2SAT 96
[2021-04-25] MEDS: fentaNYL 100 MCG/2 ML Ampul 25 MCG IV (17:36)
[2021-04-27 09:45] LABS: Pathologist Review Reviewed
== END 2021-04-25 19:43 | disposition home or self-care (01) ==
PROVIDERS: Emergency Provider Emergency Medicine; PCP Family Medicine; Visit Provider Emergency Medicine
DX: N17.9 Acute kidney failure, unspecified (principal); C79.70 Secondary malignant neoplasm of unspecified adrenal gland; C79.51 Secondary malignant neoplasm of bone; C34.92 Malignant neoplasm of unspecified part of left bronchus or lung; E87.1 Hypo-osmolality and hyponatremia; E87.5 Hyperkalemia; E83.41 Hypermagnesemia; I95.9 Hypotension, unspecified; E86.0 Dehydration; Z87.891 Personal history of nicotine dependence; D64.9 Anemia, unspecified
CPT/HCPCS: 80053; 83605; 83690; 83735; 84100; 85025; 96361; 96374; 96375; 99282; J7030; A4216; J2405